=== PATIENT | male | born 1940 | race Caucasian/White ===

== ENCOUNTER → 2018-02-20 06:59 | Outpatient (CLI) | payer MEDICARE, OTHER, SELFPAY ==
[2018-02-20 07:40] LABS: Alanine Aminotransferase 55 IU/L (21-72); Albumin 4.4 g/dL (3.5-5.0); Albumin Globulin Ratio 1.6 (1.0-2.8); Alkaline Phosphatase 50 U/L (38-126); Aspartate Aminotransferase 47 IU/L (17-59); BUN Creatinine Ratio 15.3 (6-22); Bilirubin Total 0.5 mg/dL (0.2-1.3); Blood Urea Nitrogen 23 mg/dL (9-20); Calcium 8.9 mg/dL (8.4-10.2); Carbon Dioxide 25 mmol/L (22-32); Chloride 107 mmol/L (98-107); Estimated Glomerular Filt Rate 45.4 mL/min (>60); Globulin 2.7 g/dL (1.7-4.1); Glucose 103 mg/dL (80-110); HEMOLYSIS < 15 (0-50); Potassium 4.3 mmol/L (3.4-5.1); Sodium 144 mmol/L (137-145); Total Protein 7.1 g/dL (6.3-8.2)
[2018-02-20 09:35] LABS: Thyroid Stimulating Hormone 0.13 uIU/mL (0.47-4.68)
== END ==
PROVIDERS: PCP Internal Medicine; Visit Provider Internal Medicine
DX: I10 Essential (primary) hypertension (principal); N18.9 Chronic kidney disease, unspecified
CPT/HCPCS: 36415; 80053; 84443

== ENCOUNTER → 2018-10-02 10:54 | Outpatient (CLI) | payer MEDICARE, OTHER, SELFPAY ==
[2018-10-02 13:01] LABS: BUN Creatinine Ratio 17.9 (6-22); Blood Urea Nitrogen 25 mg/dL (9-20); Calcium 9.1 mg/dL (8.4-10.2); Carbon Dioxide 24 mmol/L (22-32); Chloride 104 mmol/L (98-107); Estimated Glomerular Filt Rate 49.1 mL/min (>60); Glucose 117 mg/dL (80-110); HEMOLYSIS < 15 (0-50); Potassium 4.5 mmol/L (3.4-5.1); Sodium 140 mmol/L (137-145)
[2018-10-02 13:24] LABS: Thyroid Stimulating Hormone 0.03 uIU/mL (0.47-4.68)
[2018-10-02 13:25] LABS: Prostate Specific Antigen Scrn 4.21 ng/mL (0.1-4.0)
== END ==
PROVIDERS: PCP Internal Medicine; Visit Provider Internal Medicine
DX: Z12.5 Encounter for screening for malignant neoplasm of prostate (principal); E03.9 Hypothyroidism, unspecified; I10 Essential (primary) hypertension; D63.1 Anemia in chronic kidney disease
CPT/HCPCS: 36415; 80048; 84443; G0103

== ENCOUNTER 2018-10-31 18:48 | Emergency (ER) | payer MEDICARE, OTHER, SELFPAY ==
[2018-10-31 19:12] VITALS: BP 109/69; PULSE 73; RESP 18; TEMP 36.7; O2SAT 95; BMI 29.4
--- NOTE | 2018-10-31 19:33 | DI.US.S_ITS ---
PROCEDURE: US PERIPH VENOUS LOW EXTREM LT INDICATIONS: PAIN, SWELLING TECHNIQUE: Real-time imaging, as well as color and pulse Doppler interrogation, were performed of the lower extremity deep veins from the inguinal ligament to the popliteal fossa. COMPARISON: None. FINDINGS: The common femoral, femoral and popliteal veins are normally compressible, and free of intraluminal thrombus. Color and pulse Doppler demonstrate normal phasic intraluminal flow. There is normal augmentation response to distal compression maneuver. IMPRESSION: No DVT found left lower extremity. Dictated by: Ron Nichole M.D. on 10/31/2018 at 20:56 Approved by: Ron Nichole M.D. on 10/31/2018 at 20:56
--- NOTE | 2018-10-31 19:34 | DI.RAD.S_ITS ---
PROCEDURE: XR CHEST 1V INDICATIONS: sob TECHNIQUE: One view of the chest was acquired. COMPARISON: [facility], , CHEST 1 VIEW, 02/22/2017, 13:30. FINDINGS: Surgical changes and devices: None. Lungs and pleura: Lungs are clear. No pleural effusions or pneumothorax. Mediastinum: Mediastinal contours appear normal. Heart size is normal. Bones and chest wall: No suspicious bony lesions. Overlying soft tissues appear unremarkable. IMPRESSION: Reduced inspiratory volume, source of shortness of breath is not seen. Dictated by: Ron Nichole M.D. on 10/31/2018 at 20:33 Approved by: Ron Nichole M.D. on 10/31/2018 at 20:33
--- NOTE | 2018-10-31 19:39 | ED_ITS ---
HPI - Extremity Problem <RUBIN Stinson - Last Filed: 10/31/18 22:08> General Chief complaint: Extremity Problem,Nontraumatic Stated complaint: L LEG SWELLING IN CALF FOR 3 DAYS/SOB Time Seen by Provider: 10/31/18 19:25 Source: patient and family Mode of arrival: ambulatory Limitations: no limitations History of Present Illness HPI Narrative: Of the patient is a 77-year-old male former smoker with history of hypertension who presents with a chief complaint of left lower leg pain and shortness of breath. He denies any recent travel or surgery. He denies any history of blood clots. He states he has been short of breath for several weeks, but notice it got worse when his leg pain started. He states he feels like his left lower leg is swollen and painful. He is worried about a blood clot. He denies any chest pain. Has not taken anything for pain. Denies any dizziness, lightheadedness. States he would like to go home and feels better. Related Data Home Medications Medication Instructions Recorded Confirmed lisinopril [Prinivil] 20 mg PO QDAY #0 11/27/12 rabeprazole [Aciphex] 20 mg PO QDAY #0 11/27/12 simvastatin [Zocor] 40 mg PO HS #0 11/27/12 levothyroxine 100 mcg PO QAM #0 11/30/12 tamsulosin [Flomax] 0.4 mg PO QDAY #0 02/05/17 Previous Rx's Medication Instructions Recorded aspirin 81 mg PO BID #90 02/21/17 oxycodone 5 mg PO Q4HP PRN #30 tab 02/24/17 Allergies Allergy/AdvReac Type Severity Reaction Status Date / Time No Known Drug Allergies Allergy Verified 10/31/18 19:17 Review of Systems <RUBIN Stinson - Last Filed: 10/31/18 22:08> Review of Systems GENERAL: Denies chills, fatigue, malaise, fever, sweats. HEENT: Denies sinus pain, ear pain, sore throat, difficulty swallowing, dizziness. RESPIRATORY: See HPI CARDIOVASCULAR: Denies chest pain, palpitations, orthopnea, edema, GASTROINTESTINAL: Denies nausea, vomiting, abdominal pain, diarrhea, constipation, melena. : Denies dysuria, frequency, incontinence, hematuria, urinary retention. MUSCULOSKELETAL: See HPI SKIN: Denies rash, skin lesions, or other NEUROLOGIC: Denies weakness, headache, numbness, change in speech, confusion, seizures, incoordination. PSYCHIATRIC: No concerning psychosocial issues. 12 point review of systems is negative except for those stated above PFSH <Carole STEPHANE Villarreal- - Last Filed: 10/31/18 22:08> Social History Smoking Status: Former smoker Social History Smoking Status: Former smoker Exam <Carole STEPHANE Villarreal- - Last Filed: 10/31/18 22:08> Narrative Exam Narrative: GENERAL: Elderly male in no acute distress. Requesting to leave. HEAD: Atraumatic. Normocephalic. No temporal or scalp tenderness. EYES: Left eye closed per patient's usual. Extraocular motions intact. No scleral icterus. No injection or drainage. ENT: Nose without bleeding, purulent drainage or septal hematoma. Throat without erythema, tonsillar hypertrophy or exudate. Uvula midline. Airway patent. NECK: Trachea midline. No JVD or lymphadenopathy. Supple, nontender, no meningeal signs. CARDIOVASCULAR: Regular rate and rhythm without murmurs, gallops, or rubs. RESPIRATORY: Clear to auscultation. Breath sounds equal bilaterally. No wheezes, rales, or rhonchi. No cough. No increased respiratory effort. No accessory muscle use. No stridor. GASTROINTESTINAL: Abdomen soft, non-tender, nondistended. No hepato- splenomegaly, or palpable masses. No guarding. EXTREMITIES: General pain to palpation left calf. Positive Homans sign. Positive pedal pulse left foot. Stable gait. BACK: Nontender without deformity or crepitance. No flank tenderness. NEURO: AOx3. Stable gait. SKIN: No rash or erythema. No erythema abrasion ecchymosis etc noted left calf. Initial Vital Signs Initial Vital Signs: Vital Signs Temperature 98.1 F 10/31/18 19:12 Pulse Rate 73 10/31/18 19:12 Respiratory Rate 18 10/31/18 19:12 Blood Pressure 109/69 10/31/18 19:12 Pulse Oximetry 95 10/31/18 19:12 <Tamir Ambriz DO - Last Filed: 11/01/18 02:40> Initial Vital Signs Initial Vital Signs: Vital Signs Temperature 98.1 F 10/31/18 19:12 Pulse Rate 73 10/31/18 19:12 Respiratory Rate 18 10/31/18 19:12 Blood Pressure 109/69 10/31/18 19:12 Pulse Oximetry 95 10/31/18 19:12 Scores <RUBIN Stinson - Last Filed: 10/31/18 22:08> Wells' Criteria for PE Clinical signs and symptoms of PE: No PE is #1 Dx or equally likely: No Heart rate > 100: No Immobilization at least 3 days or surg in previous 4 weeks: No History of PE or DVT: No Hemoptysis: No Malignancy w/Treatment within 6 months or palliative: No Wells' PE Score total: 0 Artemio' Criteria for DVT Active Cancer (Treatment within 6 months): No Bedridden recently >3 days or major surgery within 4 weeks: No Calf Swelling >3cm compared to other leg: No Collateral (nonvericose) superficial veins present: No Entire leg swollen: No Localized tenderness along the deep vein system: No Pitting edema, confined to symtomatic leg: No Paralysis, paresis, or recent plaster immobilization of ext: No Previously documented DVT: No Alternative dx to DVT as likely or more likely: No Artemio' criteria for DVT: 0 Course <RUBIN Stinson - Last Filed: 10/31/18 22:08> Orders Ordered: ED Orders 10/31/18 19:33 US periph venous low extrem lt Stat 10/31/18 19:34 XR chest 1V Stat EKG-12 Lead Stat 10/31/18 19:35 B Type Natriuretic Peptide Stat Complete Blood Count AUTO DIFF Stat Comprehensive Metabolic Panel Stat D Dimer Stat Prothrombin Time INR Stat Troponin & CK Cardiac Panel Stat Vital Signs - 8 hr 10/31/18 19:12 10/31/18 21:00 10/31/18 21:45 Temperature 98.1 F Pulse Rate 73 70 70 Respiratory Rate 18 19 18 Blood Pressure 109/69 117/57 L Blood Pressure [Left Wrist] 107/56 L Pulse Oximetry 95 94 96 <Tamir Ambriz DO - Last Filed: 11/01/18 02:40> Orders Ordered: ED Orders 10/31/18 19:33 US periph venous low extrem lt Stat 10/31/18 19:34 XR chest 1V Stat EKG-12 Lead Stat 10/31/18 19:35 B Type Natriuretic Peptide Stat Complete Blood Count AUTO DIFF Stat Comprehensive Metabolic Panel Stat D Dimer Stat Prothrombin Time INR Stat Troponin & CK Cardiac Panel Stat Vital Signs - 8 hr 10/31/18 19:12 10/31/18 21:00 10/31/18 21:45 Temperature 98.1 F Pulse Rate 73 70 70 Respiratory Rate 18 19 18 Blood Pressure 109/69 117/57 L Blood Pressure [Left Wrist] 107/56 L Pulse Oximetry 95 94 96 MDM - Extremity (Nontraumatic) <Carole Phil, P[employer]ER [employer]ESS OPERATOR-BC - Last Filed: 10/31/18 22:08> Lab Data Result diagrams: 10/31/18 19:35 10/31/18 19:35 Lab Results 10/31/18 10/31/18 10/31/18 Range/Units 19:35 19:35 19:35 WBC 5.7 (4.5-11.0) X10^3/uL RBC 4.62 (4.5-5.9) X10^6/uL Hgb 13.1 L (13.5-17.5) g/dL Hct 39.5 L (41-53) % MCV 85.5 (80-100) fL MCH 28.4 (26-34) PG MCHC 33.3 (30-36) % RDW 13.8 (11.6-14.8) % Plt Count 274 (150-400) X10^3/uL Neut % (Auto) 54.9 (50-75) % Lymph % (Auto) 28.9 (25-40) % [place] % (Auto) 10.2 (3-14) % Eos % (Auto) 5.1 H (2-4) % Baso % (Auto) 0.9 (0-2) % Neut # (Auto) 3100 (6714-6573) /uL Lymph # (Auto) 1700 (4860-4125) /uL [place] # (Auto) 600 (0-900) /uL Eos # (Auto) 300 (0-450) /uL Baso # (Auto) 100 (0-100) /uL PT 12.1 (10.1-12.7) SECONDS INR 1.1 (0.9-1.3) D-Dimer (<230) ng/mL Sodium 144 (137-145) mmol/L Potassium 3.7 (3.4-5.1) mmol/L Chloride 110 H (98-107) mmol/L Carbon Dioxide 23 (22-32) mmol/L BUN 21 H (9-20) mg/dL Creatinine 1.50 H (0.66-1.25) mg/dL Estimated GFR 45.4 L (>60) mL/min BUN/Creatinine Ratio 14.0 (6-22) Glucose 102 (80-110) mg/dL Calcium 8.3 L (8.4-10.2) mg/dL Total Bilirubin 0.3 (0.2-1.3) mg/dL AST 37 (17-59) IU/L ALT 29 (21-72) IU/L Alkaline Phosphatase 59 (38-126) U/L Total Creatine Kinase 382 H (55-170) U/L CK-MB (CK-2) 4.80 H (<2.37) ng/mL CK-MB (CK-2) Rel Index 1.3 L (1.5-5.0) % Troponin I < 0.012 (0.01-0.034) ng/mL B-Natriuretic Peptide < 100 (<100) Total Protein 7.2 (6.3-8.2) g/dL Albumin 4.2 (3.5-5.0) g/dL Globulin 3.0 (1.7-4.1) g/dL Albumin/Globulin Ratio 1.4 (1.0-2.8) 10/31/18 Range/Units 19:35 WBC (4.5-11.0) X10^3/uL RBC (4.5-5.9) X10^6/uL Hgb (13.5-17.5) g/dL Hct (41-53) % MCV (80-100) fL MCH (26-34) PG MCHC (30-36) % RDW (11.6-14.8) % Plt Count (150-400) X10^3/uL Neut % (Auto) (50-75) % Lymph % (Auto) (25-40) % [place] % (Auto) (3-14) % Eos % (Auto) (2-4) % Baso % (Auto) (0-2) % Neut # (Auto) (7456-0574) /uL Lymph # (Auto) (9807-3284) /uL [place] # (Auto) (0-900) /uL Eos # (Auto) (0-450) /uL Baso # (Auto) (0-100) /uL PT (10.1-12.7) SECONDS INR (0.9-1.3) D-Dimer 628 H (<230) ng/mL Sodium (137-145) mmol/L Potassium (3.4-5.1) mmol/L Chloride (98-107) mmol/L Carbon Dioxide (22-32) mmol/L BUN (9-20) mg/dL Creatinine (0.66-1.25) mg/dL Estimated GFR (>60) mL/min BUN/Creatinine Ratio (6-22) Glucose (80-110) mg/dL Calcium (8.4-10.2) mg/dL Total Bilirubin (0.2-1.3) mg/dL AST (17-59) IU/L ALT (21-72) IU/L Alkaline Phosphatase (38-126) U/L Total Creatine Kinase (55-170) U/L CK-MB (CK-2) (<2.37) ng/mL CK-MB (CK-2) Rel Index (1.5-5.0) % Troponin I (0.01-0.034) ng/mL B-Natriuretic Peptide (<100) Total Protein (6.3-8.2) g/dL Albumin (3.5-5.0) g/dL Globulin (1.7-4.1) g/dL Albumin/Globulin Ratio (1.0-2.8) Imaging Data Chest x-ray: Radiologist's impression: [address] [id number] XRay Report Signed Patient: Mitch Villanueva WMR#: [id number] : 1Acct:[id number] Age/Sex: 77 / MDate of Service: 10/31/18 Loc: ED Accession Number: [id number] Procedure: XR chest 1V Ordering Provider: Carole Villarreal- PROCEDURE: XR CHEST 1V INDICATIONS: sob TECHNIQUE: One view of the chest was acquired. COMPARISON: [facility], [place], CHEST 1 VIEW, 02/22/2017, 13:30. FINDINGS: Surgical changes and devices: None. Lungs and pleura: Lungs are clear. No pleural effusions or pneumothorax. Mediastinum: Mediastinal contours appear normal. Heart size is normal. Bones and chest wall: No suspicious bony lesions. Overlying soft tissues appear unremarkable. IMPRESSION: Reduced inspiratory volume, source of shortness of breath is not seen. Dictated by: Ron Nichole M.D. on 10/31/2018 at 20:33 Approved by: Ron Nichole M.D. on 10/31/2018 at 20:33 Venous US: Radiologist's impression: [address] [address] XRay Report Signed Patient: Mitch Villanueva WMR#: [id number] : 1940cct:[id number] Age/Sex: 77 / MDate of Service: 10/31/18 Loc: ED Accession Number: [id number] Procedure: XR chest 1V Ordering Provider: Carole Villarreal-JEVON PROCEDURE: XR CHEST 1V INDICATIONS: sob TECHNIQUE: One view of the chest was acquired. COMPARISON: [facility], , CHEST 1 VIEW, 02/22/2017, 13:30. FINDINGS: Surgical changes and devices: None. Lungs and pleura: Lungs are clear. No pleural effusions or pneumothorax. Mediastinum: Mediastinal contours appear normal. Heart size is normal. Bones and chest wall: No suspicious bony lesions. Overlying soft tissues appear unremarkable. IMPRESSION: Reduced inspiratory volume, source of shortness of breath is not seen. Dictated by: Ron Nichole M.D. on 10/31/2018 at 20:33 Approved by: Ron Nichole M.D. on 10/31/2018 at 20:33 ECG Data Attestation EKG: I personally reviewed and interpreted this ECG as follows: Interpretation: Sinus rhythm. Ventricular rate 74. No ST elevation or depression. No ectopy noted. MDM Narrative Medical decision making narrative: The patient is a 77-year-old male who presents with several weeks of shortness of breath as well as left lower leg pain for 3 days. He had a negative ultrasound of his left leg. His D-dimer was in the 600s, though given that he is 77 years old this is normal for him given his age correction. He had a negative chest x-ray. We did discuss potentially doing a CTPA for PE, but the patient does not want to do that at this point time, as he states shortness of breath is not that bad and he knows he does not have a clot his lung. I did encourage the patient to follow up with primary care provider. Discussed at length coming back to emergency department for any acute concerns such as chest pain, severe shortness of breath etc. The patient also had a negative troponin as well as negative BNP. I did speak with the patient, his and his son who is a turbo generator oiler loss state accordance with the plan of care and request no further imaging at this point time. They state understanding of return precautions as stated understanding of following up with his primary care provider. No questions or concerns upon discharge. <Tamir Ambriz DO - Last Filed: 11/01/18 02:40> Lab Data Lab Results 10/31/18 10/31/18 10/31/18 Range/Units 19:35 19:35 19:35 WBC 5.7 (4.5-11.0) X10^3/uL RBC 4.62 (4.5-5.9) X10^6/uL Hgb 13.1 L (13.5-17.5) g/dL Hct 39.5 L (41-53) % MCV 85.5 (80-100) fL MCH 28.4 (26-34) PG MCHC 33.3 (30-36) % RDW 13.8 (11.6-14.8) % Plt Count 274 (150-400) X10^3/uL Neut % (Auto) 54.9 (50-75) % Lymph % (Auto) 28.9 (25-40) % [place] % (Auto) 10.2 (3-14) % Eos % (Auto) 5.1 H (2-4) % Baso % (Auto) 0.9 (0-2) % Neut # (Auto) 3100 (3203-7207) /uL Lymph # (Auto) 1700 (0927-3239) /uL [place] # (Auto) 600 (0-900) /uL Eos # (Auto) 300 (0-450) /uL Baso # (Auto) 100 (0-100) /uL PT 12.1 (10.1-12.7) SECONDS INR 1.1 (0.9-1.3) D-Dimer (<230) ng/mL Sodium 144 (137-145) mmol/L Potassium 3.7 (3.4-5.1) mmol/L Chloride 110 H (98-107) mmol/L Carbon Dioxide 23 (22-32) mmol/L BUN 21 H (9-20) mg/dL Creatinine 1.50 H (0.66-1.25) mg/dL Estimated GFR 45.4 L (>60) mL/min BUN/Creatinine Ratio 14.0 (6-22) Glucose 102 (80-110) mg/dL Calcium 8.3 L (8.4-10.2) mg/dL Total Bilirubin 0.3 (0.2-1.3) mg/dL AST 37 (17-59) IU/L ALT 29 (21-72) IU/L Alkaline Phosphatase 59 (38-126) U/L Total Creatine Kinase 382 H (55-170) U/L CK-MB (CK-2) 4.80 H (<2.37) ng/mL CK-MB (CK-2) Rel Index 1.3 L (1.5-5.0) % Troponin I < 0.012 (0.01-0.034) ng/mL B-Natriuretic Peptide < 100 (<100) Total Protein 7.2 (6.3-8.2) g/dL Albumin 4.2 (3.5-5.0) g/dL Globulin 3.0 (1.7-4.1) g/dL Albumin/Globulin Ratio 1.4 (1.0-2.8) 10/31/18 Range/Units 19:35 WBC (4.5-11.0) X10^3/uL RBC (4.5-5.9) X10^6/uL Hgb (13.5-17.5) g/dL Hct (41-53) % MCV (80-100) fL MCH (26-34) PG MCHC (30-36) % RDW (11.6-14.8) % Plt Count (150-400) X10^3/uL Neut % (Auto) (50-75) % Lymph % (Auto) (25-40) % [place] % (Auto) (3-14) % Eos % (Auto) (2-4) % Baso % (Auto) (0-2) % Neut # (Auto) (0776-6918) /uL Lymph # (Auto) (6843-4347) /uL [place] # (Auto) (0-900) /uL Eos # (Auto) (0-450) /uL Baso # (Auto) (0-100) /uL PT (10.1-12.7) SECONDS INR (0.9-1.3) D-Dimer 628 H (<230) ng/mL Sodium (137-145) mmol/L Potassium (3.4-5.1) mmol/L Chloride (98-107) mmol/L Carbon Dioxide (22-32) mmol/L BUN (9-20) mg/dL Creatinine (0.66-1.25) mg/dL Estimated GFR (>60) mL/min BUN/Creatinine Ratio (6-22) Glucose (80-110) mg/dL Calcium (8.4-10.2) mg/dL Total Bilirubin (0.2-1.3) mg/dL AST (17-59) IU/L ALT (21-72) IU/L Alkaline Phosphatase (38-126) U/L Total Creatine Kinase (55-170) U/L CK-MB (CK-2) (<2.37) ng/mL CK-MB (CK-2) Rel Index (1.5-5.0) % Troponin I (0.01-0.034) ng/mL B-Natriuretic Peptide (<100) Total Protein (6.3-8.2) g/dL Albumin (3.5-5.0) g/dL Globulin (1.7-4.1) g/dL Albumin/Globulin Ratio (1.0-2.8) Discharge Plan Departure Patient Disposition: Home Clinical Impression: Breath shortness Acute leg pain Qualifiers: Laterality: left Qualified Code(s): M79.605 - Pain in left leg Discharge Date/Time: 10/31/18 21:47 Interventions: ED Discharge Assessment Last Done: 10/31/18 21:45 Activity Restrictions/Additional Instructions: Your ultrasound of her leg shows no clot today. As we discussed the blood test for a clot is negative when it is corrected for your age. We elected to not scan your lungs for a blood clot given that your D-dimer is normal for somebody of your age combined with your reduced kidney function. Please follow up with her primary care provider. Please come back to the emergency department for any acute concerns such as chest pain, severe shortness of breath etc Prescriptions: No Action rabeprazole [Aciphex] 20 MG tablet,delayed release (DR/EC) 20 mg PO QDAY Qty: 0 RF: 0 lisinopril [Prinivil] 20 MG tablet 20 mg PO QDAY Qty: 0 RF: 0 simvastatin [Zocor] 40 MG tablet 40 mg PO HS Qty: 0 RF: 0 levothyroxine 100 MCG tablet 100 mcg PO QAM Qty: 0 RF: 0 tamsulosin [Flomax] 0.4 MG capsule,extended release 24hr 0.4 mg PO QDAY Qty: 0 RF: 0 aspirin 81 MG tablet,delayed release (DR/EC) 81 mg PO BID Qty: 90 RF: 0 oxycodone 5 MG tablet 5 mg PO Q4HP PRNQty: 30 RF: 0 Referrals: Mathew Blevins MD [Primary Care Provider] - <Tamir Ambriz DO - Last Filed: 11/01/18 02:40> [facility] ED Attending Deniaature Attestation: I was immediately available in the department for consultation. Documentation has been reviewed. I agree with assessment and plan.
[2018-10-31 19:50] LABS: Add Manual Diff / Slide Review NO; Basophils Absolute Auto 100 /uL (0-100); Basophils Percent Auto 0.9 % (0-2); Eosinophils Absolute Auto 300 /uL (0-450); Eosinophils Percent Auto 5.1 % (2-4); Hematocrit 39.5 % (41-53); Hemoglobin 13.1 g/dL (13.5-17.5); Lymphocytes Absolute Auto 1700 /uL (1100-4500); Lymphocytes Percent Auto 28.9 % (25-40); Mean Corpuscular HGB Conc 33.3 % (30-36); Mean Corpuscular Hemoglobin 28.4 PG (26-34); Mean Corpuscular Volume 85.5 fL (80-100); Monocytes Absolute Auto 600 /uL (0-900); Monocytes Percent Auto 10.2 % (3-14); Neutrophils Absolute Auto 3100 /uL (1500-7000); Neutrophils Percent Auto 54.9 % (50-75); Platelet Count 274 X10^3/uL (150-400); Red Blood Cell Count 4.62 X10^6/uL (4.5-5.9); Red Cell Distribution Width 13.8 % (11.6-14.8); White Blood Cell Count 5.7 X10^3/uL (4.5-11.0)
[2018-10-31 19:59] LABS: Alanine Aminotransferase 29 IU/L (21-72); Albumin 4.2 g/dL (3.5-5.0); Albumin Globulin Ratio 1.4 (1.0-2.8); Alkaline Phosphatase 59 U/L (38-126); Aspartate Aminotransferase 37 IU/L (17-59); Bilirubin Total 0.3 mg/dL (0.2-1.3); Blood Urea Nitrogen 21 mg/dL (9-20); Calcium 8.3 mg/dL (8.4-10.2); Carbon Dioxide 23 mmol/L (22-32); Chloride 110 mmol/L (98-107); Creatine Kinase 382 U/L (55-170); Estimated Glomerular Filt Rate 45.4 mL/min (>60); Glucose 102 mg/dL (80-110); HEMOLYSIS < 15 (0-50); Potassium 3.7 mmol/L (3.4-5.1); Sodium 144 mmol/L (137-145); Total Protein 7.2 g/dL (6.3-8.2)
[2018-10-31 20:05] LABS: INR 1.1 (0.9-1.3); Prothrombin Time 12.1 SECONDS (10.1-12.7)
[2018-10-31 20:11] LABS: Troponin I < 0.012 ng/mL (0.01-0.034)
[2018-10-31 20:14] LABS: CKMB % Relative Index 1.3 % (1.5-5.0)
[2018-10-31 20:24] LABS: D Dimer 628 ng/mL (<230)
[2018-10-31 20:27] LABS: B Type Natriuretic Peptide < 100 (<100)
[2018-10-31 21:00] VITALS: BP 107/56; PULSE 70; RESP 19; O2SAT 94
[2018-10-31 21:45] VITALS: BP 117/57; PULSE 70; RESP 18; O2SAT 96
== END 2018-10-31 21:47 | disposition home or self-care (01) ==
PROVIDERS: Emergency Provider Nurse Practitioner Family; PCP Internal Medicine
DX: R06.02 Shortness of breath (principal); M79.605 Pain in left leg
CPT/HCPCS: 36591; 71045; 80053; 82550; 82553; 83880; 84484; 85025; 85379; 85610; 93005; 93971; 99282; 99285

== ENCOUNTER → 2019-04-02 06:59 | Outpatient (CLI) | payer MEDICARE, OTHER, SELFPAY ==
[2019-04-02 08:19] LABS: BUN Creatinine Ratio 21.3 (6-22); Blood Urea Nitrogen 32 mg/dL (9-20); Calcium 9.2 mg/dL (8.4-10.2); Carbon Dioxide 26 mmol/L (22-32); Chloride 105 mmol/L (98-107); Estimated Glomerular Filt Rate 45.3 mL/min (>60); Glucose 95 mg/dL (80-110); HEMOLYSIS < 15 (0-50); Potassium 4.3 mmol/L (3.4-5.1); Sodium 142 mmol/L (137-145); Uric Acid 8.5 mg/dL (3.5-8.5)
[2019-04-02 08:49] LABS: Prostate Specific Antigen 3.53 ng/mL (0.10-4.00)
[2019-04-02 08:50] LABS: TSH w/ Reflex to FT4 0.13 uIU/mL (0.47-4.68)
[2019-04-02 09:22] LABS: Free T4, Direct Thyroxine 1.22 ng/dL (0.78-2.19)
== END ==
PROVIDERS: PCP Internal Medicine; Visit Provider Internal Medicine
DX: M1A.00X0 Idiopathic chronic gout, unspecified site, without tophus (tophi) (principal); E03.9 Hypothyroidism, unspecified; N18.9 Chronic kidney disease, unspecified; R97.20 Elevated prostate specific antigen [PSA]
CPT/HCPCS: 36415; 80048; 84153; 84439; 84443; 84550

== ENCOUNTER → 2019-10-13 06:56 | Outpatient (CLI) | payer MEDICARE, OTHER, SELFPAY ==
[2019-10-13 08:27] LABS: BUN Creatinine Ratio 13.3 (6-22); Blood Urea Nitrogen 19 mg/dL (9-20); Calcium 8.8 mg/dL (8.4-10.2); Carbon Dioxide 25 mmol/L (22-32); Chloride 105 mmol/L (98-107); Estimated Glomerular Filt Rate 47.8 mL/min (>60); Glucose 100 mg/dL (80-110); HEMOLYSIS < 15 (0-50); Sodium 141 mmol/L (137-145); Uric Acid 8.2 mg/dL (3.5-8.5)
[2019-10-13 08:56] LABS: Prostate Specific Antigen 4.02 ng/mL (0.10-4.00)
[2019-10-13 09:22] LABS: Free T4, Direct Thyroxine 1.46 ng/dL (0.78-2.19)
== END ==
PROVIDERS: PCP Internal Medicine; Referring Provider Internal Medicine; Visit Provider Internal Medicine
DX: M1A.00X0 Idiopathic chronic gout, unspecified site, without tophus (tophi) (principal); E03.9 Hypothyroidism, unspecified; N18.9 Chronic kidney disease, unspecified; R97.20 Elevated prostate specific antigen [PSA]
CPT/HCPCS: 36415; 80048; 84153; 84439; 84443; 84550

== ENCOUNTER → 2020-04-05 13:35 | Outpatient (CLI) | payer MEDICARE, OTHER, SELFPAY ==
[2020-04-05 14:20] LABS: Add Manual Diff / Slide Review NO; Basophils Absolute Auto 0 /uL (0-100); Basophils Percent Auto 0.7 % (0-2); Eosinophils Absolute Auto 200 /uL (0-450); Eosinophils Percent Auto 4.2 % (2-4); Hematocrit 40.3 % (41-53); Hemoglobin 13.1 g/dL (13.5-17.5); Lymphocytes Absolute Auto 1400 /uL (1100-4500); Lymphocytes Percent Auto 24.8 % (25-40); Mean Corpuscular HGB Conc 32.5 % (30-36); Mean Corpuscular Hemoglobin 27.8 PG (26-34); Mean Corpuscular Volume 85.5 fL (80-100); Monocytes Absolute Auto 400 /uL (0-900); Monocytes Percent Auto 7.4 % (3-14); Neutrophils Absolute Auto 3500 /uL (1500-7000); Neutrophils Percent Auto 62.9 % (50-75); Platelet Count 280 X10^3/uL (150-400); Red Blood Cell Count 4.71 X10^6/uL (4.5-5.9); Red Cell Distribution Width 13.9 % (11.6-14.8); White Blood Cell Count 5.6 X10^3/uL (4.5-11.0)
[2020-04-05 14:50] LABS: Alanine Aminotransferase 24 IU/L (<50); Albumin 4.2 g/dL (3.5-5.0); Albumin Globulin Ratio 1.6 (1.0-2.8); Alkaline Phosphatase 47 U/L (38-126); Aspartate Aminotransferase 29 IU/L (17-59); Bilirubin Total 0.4 mg/dL (0.2-1.3); Blood Urea Nitrogen 31 mg/dL (9-20); Calcium 8.8 mg/dL (8.4-10.2); Carbon Dioxide 23 mmol/L (22-32); Chloride 109 mmol/L (98-107); Cholesterol 110 mg/dL (140-199); Estimated Glomerular Filt Rate 38.5 mL/min (>60); Globulin 2.6 g/dL (1.7-4.1); Glucose 90 mg/dL (80-110); HDL Cholesterol 30 mg/dL (40-60); HEMOLYSIS < 15 (0-50); LDL Cholesterol Calculated 52 mg/dL (<100); Potassium 3.8 mmol/L (3.4-5.1); Sodium 141 mmol/L (137-145); Total Protein 6.8 g/dL (6.3-8.2); Triglycerides 139 mg/dL (35-150)
[2020-04-05 15:17] LABS: TSH w/ Reflex to FT4 0.02 uIU/mL (0.47-4.68)
[2020-04-05 15:19] LABS: Prostate Specific Antigen 3.54 ng/mL (0.10-4.00)
== END ==
PROVIDERS: PCP Internal Medicine; Referring Provider Internal Medicine; Visit Provider Internal Medicine
DX: M15.0 Primary generalized (osteo)arthritis (principal); E78.00 Pure hypercholesterolemia, unspecified; R97.20 Elevated prostate specific antigen [PSA]
CPT/HCPCS: 36415; 80053; 80061; 84153; 84439; 84443; 85025

== ENCOUNTER → 2020-07-27 14:55 | Outpatient (ROUT) | payer MEDICARE, OTHER, SELFPAY ==
[2020-07-27 15:26] LABS: Add Manual Diff / Slide Review NO; Basophils Absolute Auto 0 /uL (0-100); Eosinophils Absolute Auto 200 /uL (0-450); Eosinophils Percent Auto 4.5 % (2-4); Hemoglobin 12.7 g/dL (13.5-17.5); Lymphocytes Absolute Auto 1200 /uL (1100-4500); Lymphocytes Percent Auto 25.8 % (25-40); Mean Corpuscular HGB Conc 33.4 % (30-36); Mean Corpuscular Hemoglobin 28.7 PG (26-34); Mean Corpuscular Volume 85.9 fL (80-100); Monocytes Absolute Auto 400 /uL (0-900); Monocytes Percent Auto 8.3 % (3-14); Neutrophils Absolute Auto 2900 /uL (1500-7000); Neutrophils Percent Auto 60.4 % (50-75); Platelet Count 316 X10^3/uL (150-400); Red Blood Cell Count 4.43 X10^6/uL (4.5-5.9); Red Cell Distribution Width 13.1 % (11.6-14.8); White Blood Cell Count 4.8 X10^3/uL (4.5-11.0)
[2020-07-27 15:52] LABS: BUN Creatinine Ratio 18.2 (6-22); Blood Urea Nitrogen 27 mg/dL (9-20); Calcium 7.6 mg/dL (8.4-10.2); Carbon Dioxide 24 mmol/L (22-32); Chloride 105 mmol/L (98-107); Estimated Glomerular Filt Rate 45.8 mL/min (>60); Glucose 100 mg/dL (80-110); HEMOLYSIS < 15 (0-50); Potassium 3.9 mmol/L (3.4-5.1); Sodium 139 mmol/L (137-145); Uric Acid 8.4 mg/dL (3.5-8.5)
== END ==
PROVIDERS: PCP Internal Medicine; Visit Provider Internal Medicine
DX: M1A.00X0 Idiopathic chronic gout, unspecified site, without tophus (tophi) (principal); N18.30 Chronic kidney disease, stage 3 unspecified
CPT/HCPCS: 80048; 84550; 85025

== ENCOUNTER → 2020-10-02 08:50 | Outpatient (CLI) | payer MEDICARE, OTHER, SELFPAY ==
[2020-10-02 09:23] LABS: Add Manual Diff / Slide Review NO; Basophils Absolute Auto 0 /uL (0-100); Basophils Percent Auto 0.9 % (0-2); Eosinophils Absolute Auto 300 /uL (0-450); Eosinophils Percent Auto 6.4 % (2-4); Hematocrit 39.4 % (41-53); Hemoglobin 13.5 g/dL (13.5-17.5); Lymphocytes Absolute Auto 1500 /uL (1100-4500); Lymphocytes Percent Auto 31.4 % (25-40); Mean Corpuscular HGB Conc 34.1 % (30-36); Mean Corpuscular Hemoglobin 29.5 PG (26-34); Mean Corpuscular Volume 86.3 fL (80-100); Monocytes Absolute Auto 400 /uL (0-900); Monocytes Percent Auto 8.4 % (3-14); Neutrophils Absolute Auto 2600 /uL (1500-7000); Neutrophils Percent Auto 52.9 % (50-75); Platelet Count 257 X10^3/uL (150-400); Red Blood Cell Count 4.57 X10^6/uL (4.5-5.9); Red Cell Distribution Width 13.8 % (11.6-14.8); White Blood Cell Count 4.9 X10^3/uL (4.5-11.0)
[2020-10-02 10:22] LABS: BUN Creatinine Ratio 17.7 (6-22); Blood Urea Nitrogen 26 mg/dL (9-20); Calcium 9.3 mg/dL (8.4-10.2); Carbon Dioxide 27 mmol/L (22-32); Chloride 105 mmol/L (98-107); Estimated Glomerular Filt Rate 46.2 mL/min (>60); Glucose 102 mg/dL (80-110); HEMOLYSIS < 15 (0-50); Potassium 4.3 mmol/L (3.4-5.1); Sodium 140 mmol/L (137-145)
== END ==
PROVIDERS: PCP Internal Medicine; Referring Provider Internal Medicine; Visit Provider Internal Medicine
DX: Z00.00 Encounter for general adult medical examination without abnormal findings (principal); E03.9 Hypothyroidism, unspecified; D63.1 Anemia in chronic kidney disease; N18.9 Chronic kidney disease, unspecified; R97.20 Elevated prostate specific antigen [PSA]
CPT/HCPCS: 36415; 80048; 84153; 85025; G0103

== ENCOUNTER → 2021-06-28 08:59 | Outpatient (CLI) | payer MEDICARE, OTHER, SELFPAY ==
--- NOTE | 2021-06-28 09:03 | DI.US.S_ITS ---
PROCEDURE: US RENAL COMPLETE INDICATIONS: CHRONIC STAGE 3 KIDNEY DISEASE TECHNIQUE: Real-time scanning was performed of the kidneys and bladder, with image documentation. COMPARISON: [facility], US, ABDOMEN COMPLETE, 11/25/2012, 2:44. [facility], CT, ABDOMEN/PELVIS WITH CONTRAST, 11/25/2012, 0:22. [facility], US, RENAL COMPLETE, 04/16/2012, 11:17. FINDINGS: Kidneys: Kidneys are normal in size. Right kidney measures 11.9 cm long; left kidney measures 12 cm long. Right renal cortical thickness is 1.3 cm; left renal cortical thickness is 1.3 cm. Moderate generalized increased echogenicity can be seen of the kidneys. No hydronephrosis or nephrolithiasis. No suspicious solid mass lesions. Bladder: Pre-void bladder volume is 134 mL. Post-void residual is 62 mL. Pre-void images demonstrate no intraluminal masses or stones. On pre-void images, only the right ureteral jet can be seen with color Doppler interrogation. (Of note, ureteral jets may not be detectable in up to 25% of cases due to insufficient differences in specific gravity between ureteral and bladder urine). Miscellaneous: No free pelvic fluid. IMPRESSION: Negative for hydronephrosis. Moderate postvoid residual, 62 cc. Mild generalized increase echogenicity seen of the kidneys, which is consistent with the known clinical history. Dictated by: Beto Silva M.D. on 06/28/2021 at 9:28 Approved by: Beto Silva M.D. on 06/28/2021 at 9:30
== END ==
PROVIDERS: PCP Internal Medicine; Referring Provider Internal Medicine; Visit Provider Internal Medicine
DX: N18.31 Chronic kidney disease, stage 3a (principal)
CPT/HCPCS: 76770

== ENCOUNTER → 2021-08-03 11:11 | Outpatient (CLI) | payer MEDICARE, OTHER, SELFPAY ==
--- NOTE | 2021-08-03 11:13 | DI.MRI.S_ITS ---
PROCEDURE: MR PELIS WO/W CON INDICATIONS: Elevated and rising PSA abnormal right prostate TECHNIQUE: Coronal HASTE, axial T1 FSE with fat saturation, 3-plane nonbreath-hold T2 FSE. After the administration of contrast, dynamic axial, delayed axial and coronal VIBE or 2-D FLASH with fat saturation through the pelvis. Optional diffusion weighted imaging and ADC may be performed. COMPARISON: None. FINDINGS: Image quality: Diffusion weighted and dynamic contrast enhanced images are diagnostic. Prostate: Gland size is 5.5 x 4.9 x 4.1 cm; ellipsoid gland volume is 57 mL. A small intrinsic T1 hyperintense focus in the mid transitional zone could represent a small focus of hemorrhage. There are multiple BPH nodules. Lesion size(s): Lesion 1: 1 x 1 cm 09/16. Lesion location(s) (sector): Lesion 1: Right apex transitional zone Lesion description: Lesion 1: Round T2 weighted imaging (T2WI) morphology score: Lesion 1: 3 Diffusion weighted imaging (DWI) morphology score: Lesion 1: 2 Dynamic contrast enhancement (DCE): Lesion 1: Absent Lesion PI-RADS score: Lesion 1: PI-RADS 3 Genitourinary system: Bladder wall thickness is normal. Distal ureters are non distended. Bowel and peritoneum: No pathologic free pelvic fluid. Inferior colon and small bowel loops are normal in caliber. Diverticulosis. Nodes and vessels: No pelvic or inguinal adenopathy by size criteria. Iliac vessels are normal in caliber. Soft tissues: No inguinal hernias. Mild enhancement adjacent to the right greater trochanter could be due to bursitis or tendinitis. Bones: Marrow demonstrates normal overall signal, without lesions to suggest metastases. IMPRESSION: 1. Prostatomegaly. 2. Right apex transitional zone observation measuring 1 cm. PI-RADS 3. This could represent a BPH nodule. 3. No enlarged lymph nodes. Dictated by: Robert Duque M.D. on 08/03/2021 at 13:32 Approved by: Robert Duque M.D. on 08/03/2021 at 13:45
== END ==
PROVIDERS: PCP Internal Medicine; Referring Provider Urology; Visit Provider Urology
DX: N42.9 Disorder of prostate, unspecified (principal); R97.20 Elevated prostate specific antigen [PSA]; N40.0 Benign prostatic hyperplasia without lower urinary tract symptoms
CPT/HCPCS: 72197; A9579

== ENCOUNTER → 2021-11-08 07:15 | Outpatient (CLI) | payer MEDICARE, OTHER, SELFPAY ==
[2021-11-10 05:47] LABS: PSA Free % 15.2 % (.)
== END ==
PROVIDERS: PCP Internal Medicine; Referring Provider Urology; Visit Provider Urology
DX: R97.20 Elevated prostate specific antigen [PSA] (principal)
CPT/HCPCS: 36415; 84153; 84154

== ENCOUNTER → 2021-12-10 06:58 | Outpatient (CLI) | payer MEDICARE, OTHER, SELFPAY ==
[2021-12-10 09:03] LABS: Hematocrit 39.2 % (41-53); Hemoglobin 13.1 g/dL (13.5-17.5)
[2021-12-10 09:12] LABS: Creatinine Urine Random 38.5 mg/dL; Protein (Total) Urine Random 16 mg/dL (0-12); Protein Creatinine Ratio Urine 0.41 GRAM/24H
[2021-12-10 10:08] LABS: BUN Creatinine Ratio 17.1 (6-22); Blood Urea Nitrogen 26 mg/dL (9-20); Calcium 8.8 mg/dL (8.4-10.2); Carbon Dioxide 24 mmol/L (22-32); Chloride 107 mmol/L (98-107); Estimated Glomerular Filt Rate 46 mL/min (>60); Glucose 96 mg/dL (80-110); HEMOLYSIS < 15 (0-50); Potassium 4.6 mmol/L (3.4-5.1); Sodium 140 mmol/L (137-145)
== END ==
PROVIDERS: PCP Internal Medicine; Referring Provider Student in an Organized Health Care Education/Training Program; Visit Provider Student in an Organized Health Care Education/Training Program
DX: N05.9 Unspecified nephritic syndrome with unspecified morphologic changes (principal); D64.9 Anemia, unspecified; R80.9 Proteinuria, unspecified
CPT/HCPCS: 36415; 80048; 82570; 84156; 85014; 85018

== ENCOUNTER → 2022-02-19 12:56 | Outpatient (CLI) | payer MEDICARE, OTHER, SELFPAY ==
[2022-02-20 08:13] LABS: PSA Free % 15.8 % (.)
== END ==
PROVIDERS: Referring Provider Urology; Visit Provider Urology
DX: R97.20 Elevated prostate specific antigen [PSA] (principal); N42.9 Disorder of prostate, unspecified
CPT/HCPCS: 36415; 84153; 84154

== ENCOUNTER → 2022-06-07 07:04 | Outpatient (CLI) | payer MEDICARE, OTHER, SELFPAY ==
[2022-06-07 07:58] LABS: Add Manual Diff / Slide Review NO; Basophils Absolute Auto 0 /uL (0-100); Basophils Percent Auto 0.8 % (0-2); Eosinophils Absolute Auto 300 /uL (0-450); Hematocrit 40.6 % (41-53); Hemoglobin 13.3 g/dL (13.5-17.5); Lymphocytes Absolute Auto 1600 /uL (1100-4500); Lymphocytes Percent Auto 34.6 % (25-40); Mean Corpuscular HGB Conc 32.7 % (30-36); Mean Corpuscular Hemoglobin 27.5 PG (26-34); Monocytes Absolute Auto 400 /uL (0-900); Monocytes Percent Auto 7.9 % (3-14); Neutrophils Absolute Auto 2400 /uL (1500-7000); Neutrophils Percent Auto 50.7 % (50-75); Platelet Count 280 X10^3/uL (150-400); Red Blood Cell Count 4.83 X10^6/uL (4.5-5.9); Red Cell Distribution Width 14.9 % (11.6-14.8); White Blood Cell Count 4.7 X10^3/uL (4.5-11.0)
[2022-06-07 08:49] LABS: Alanine Aminotransferase 21 IU/L (<50); Albumin 4.2 g/dL (3.5-5.0); Albumin Globulin Ratio 1.4 (1.0-2.8); Alkaline Phosphatase 49 U/L (38-126); Aspartate Aminotransferase 28 IU/L (17-59); BUN Creatinine Ratio 14.5 (6-22); Bilirubin Total 0.5 mg/dL (0.2-1.3); Blood Urea Nitrogen 26 mg/dL (9-20); Calcium 8.7 mg/dL (8.4-10.2); Carbon Dioxide 28 mmol/L (22-32); Chloride 103 mmol/L (98-107); Estimated Glomerular Filt Rate 38 mL/min (>60); Globulin 2.9 g/dL (1.7-4.1); Glucose 91 mg/dL (80-110); HEMOLYSIS < 15 (0-50); Potassium 4.6 mmol/L (3.4-5.1); Sodium 144 mmol/L (137-145); Total Protein 7.1 g/dL (6.3-8.2); Uric Acid 8.6 mg/dL (3.5-8.5)
[2022-06-07 09:05] LABS: Free T4, Direct Thyroxine 1.32 ng/dL (0.78-2.19)
[2022-06-07 09:19] LABS: Thyroid Stimulating Hormone 0.307 uIU/mL (0.47-4.68)
[2022-06-07 09:23] LABS: Prostate Specific Antigen 5.53 ng/mL (0.10-4.00)
== END ==
PROVIDERS: PCP Family Medicine; Referring Provider Family Medicine; Visit Provider Family Medicine
DX: E03.9 Hypothyroidism, unspecified (principal); R97.20 Elevated prostate specific antigen [PSA]; I10 Essential (primary) hypertension; M10.9 Gout, unspecified; N18.30 Chronic kidney disease, stage 3 unspecified
CPT/HCPCS: 36415; 80053; 84153; 84439; 84443; 84550; 85025

== ENCOUNTER → 2022-08-20 08:23 | Outpatient (CLI) | payer MEDICARE, OTHER, SELFPAY | PROVIDERS: PCP Internal Medicine; Referring Provider Urology; Visit Provider Urology | DX: N42.9 Disorder of prostate, unspecified (principal); R97.20 Elevated prostate specific antigen [PSA] | CPT/HCPCS: 36415; 84153; 84154 ==

== ENCOUNTER → 2022-09-03 10:57 | Outpatient (CLI) | payer MEDICARE, OTHER, SELFPAY ==
[2022-09-03 13:06] LABS: TSH w/ Reflex to FT4 0.06 uIU/mL (0.47-4.68)
[2022-09-03 13:32] LABS: Free T4, Direct Thyroxine 1.74 ng/dL (0.78-2.19)
[2022-09-05 11:41] LABS: PSA Free % 16.1 % (.); PSA, Total 6.4 ng/mL (0.0-4.0)
== END ==
PROVIDERS: PCP Internal Medicine; Referring Provider Urology; Visit Provider Urology
DX: E03.9 Hypothyroidism, unspecified (principal); R97.20 Elevated prostate specific antigen [PSA]
CPT/HCPCS: 36415; 84153; 84154; 84439; 84443

== ENCOUNTER → 2022-11-08 08:46 | Outpatient (CLI) | payer MEDICARE, OTHER, SELFPAY ==
[2022-11-08 10:17] LABS: TSH w/ Reflex to FT4 1.62 uIU/mL (0.47-4.68)
== END ==
PROVIDERS: PCP Internal Medicine; Referring Provider Internal Medicine; Visit Provider Internal Medicine
DX: E03.9 Hypothyroidism, unspecified (principal)
CPT/HCPCS: 36415; 84443

== ENCOUNTER 2022-11-14 07:42 | Emergency (ER) | payer MEDICARE, OTHER, SELFPAY ==
[2022-11-14] VITALS (7 sets, daily range): BP systolic 157–188; BP diastolic 72–79; PULSE 61–78; RESP 15–23; TEMP 36.5; O2SAT 94–99; BMI 28.7
--- NOTE | 2022-11-14 07:54 | ED_ITS ---
HPI - Dizziness General Chief Complaint: Dizziness Stated Complaint: dizzy/neck hurting T-2 Time Seen by Provider: 11/14/22 07:53 Source: patient Mode of arrival: Wheelchair Limitations: no limitations History of Present Illness HPI Narrative: This is an 82-year-old male with history of hypertension, hypothyroidism, dyslipidemia, CKD stage 3, GERD and gout as well as history of left enucleation. Patient states yesterday he woke up rolled over in bed and noticed spinning sensation yesterday morning when he woke up. He states that was the 1st time that had never happened. He states that lasted about 10 minutes and then stopped. Patient states this morning when he woke up at 5:30 a.m. he once again rolled over in bed had spinning sensation in the room which has been persistent. Patient states no headache but he has had pain from his left shoulder that is radiated up his neck towards his ear been going on intermittently for the past month it is present today. Patient states he was told it was likely a torn rotator cuff. He denies any headache. He denies any vision changes. 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 Patient denies numbness, tingling or weakness. He states he is having some trouble walking because he has pain and gout in his right foot but otherwise isn't having any issues with balance. He denies any nausea or vomiting. No chest pain no shortness of breath, denies any acute vision changes. No issues with speech, no new facial droop. Patient states he is currently taking colchicine which he does not take every day but because he is having a flare of gout in his foot. He is had appendectomy, cholecystectomy and left eye removal. No known drug allergies. No tobacco, occasional alcohol nothing recently, no illicit. Dr. Arrieta is his primary care. He is accompanied by his . Related Data Home Medications Medication Instructions Recorded Confirmed rabeprazole 20 mg tablet,delayed 20 mg PO QDAY ##0 11/27/12 11/11/22 release (AcipHex) colchicine 0.6 mg tablet 0.6 mg PO BID 07/26/21 11/11/22 levothyroxine 100 mcg tablet 100 mcg PO DAILY 11/11/22 11/11/22 Previous Rx's Medication Instructions Recorded lisinopril 20 mg tablet 20 mg PO DAILY #90 tabs 08/01/22 simvastatin 40 mg tablet (Zocor) 40 mg PO HS #90 tabs 10/14/22 meclizine 25 mg chewable tablet 25 mg PO QID #20 tabs 11/14/22 Allergies Allergy/AdvReac Type Severity Reaction Status Date / Time No Known Drug Allergies Allergy Verified 11/14/22 07:52 Review of Systems Review of Systems ROS Unobtainable: All systems reviewed & are unremarkable except as noted in HPI and below Patient History Medical History Abnormal prostate by palpation Acquired hypothyroidism Bladder outlet obstruction BPH w urinary obs/LUTS Elevated PSA Erectile dysfunction Essential hypertension History of arthritis Mixed hyperlipidemia Overweight Stage 3b chronic kidney disease (CKD) Surgical History Hx of appendectomy Hx of cholecystectomy Family History Father Cancer Mother Hyperlipidemia Hypertension Gout 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 HEENT: Atraumatic, pupils are equal round reactive to light, extraocular movements are intact with right eye, has glass left eye, nares are clear, TMs are clear with no fluid, there is no conjunctival pallor. Throat is clear without any exudates, erythema, tonsillar enlargement or uvular deviation, left lid slightly droopy but patient states this is from his glass eye. No other facial droop appreciated. HEART: Regular rate and rhythm without murmur, clicks, rubs. LUNGS:Lungs clear to auscultation, no wheezes, rales, crackles, chest moves symmetrically ABD:bowel sounds normal, soft, non-tender, no guarding, rebound, rigidity, no masses noted, no hepatosplenomegaly MSCL: Non-tender, no muscle atrophy, muscles strength 5/5 upper and lower extremities, full range of motion. NEURO:CN 2-12 intact, sensation normal, finger nose finger test normal, heel saldivar test normal, romberg normal SKIN: No rash, erythema or other skin changes. Initial Vital Signs Initial Vital Signs: Vital Signs Pulse Rate 65 11/14/22 07:48 Respiratory Rate 23 11/14/22 07:48 Pulse Oximetry 97 11/14/22 07:48 Scores NIH Stroke Scale Level of Conciousness: Alert, keenly responsive Ask month/age: Answers both questions correctly. Open/close eyes, close hand: Performs both tasks correctly Best gaze horizontal: Normal Visual vargas: No visual loss (missing left eye.) Facial palsy: Normal symetrical movement Left arm drift: No drift for full 10 sec Right arm drift: No drift for full 10 sec Left leg drift: No drift for full 5 sec Right leg drift: No drift for full 5 sec Limb ataxia: Absent Sensory on face/arms/legs: Normal, no sensory loss Best language: No aphasia, normal Dysarthria: Normal Extinction or inattention: No abnormality Total NIH Stroke scale score: 0 Course Orders Ordered: ED Orders 11/14/22 07:54 EKG-12 Lead Stat 11/14/22 08:11 CT angio head and neck Stat 11/14/22 08:20 Basic Metabolic Panel Stat Complete Blood Count AUTO DIFF Stat Troponin I Stat Discontinued Medications Sodium Chloride (Normal Saline 0.9%) 1,000 mls @ 1,000 mls/hr IV BOLUS ONE Stop: 11/14/22 09:10 Last Infusion: 11/14/22 10:12 Dose: 0 mls/hr Documented By: Admin: 11/14/22 08:22 Dose: 1,000 mls/hr Documented By: BECCA Meclizine HCl (Meclizine Hcl 12.5 Mg Tablet) 50 mg PO NOW ONE Stop: 11/14/22 08:12 Last Admin: 11/14/22 08:20 Dose: 50 mg Documented By: BECCA Vital Signs Vital signs: Vital Signs - 8 hr 11/14/22 07:49 11/14/22 07:48 11/14/22 08:00 Temperature 97.7 F Pulse Rate 70 65 Respiratory Rate 16 23 Blood Pressure 188/79 H 163/74 H Pulse Oximetry 98 97 Oxygen Delivery Method Room Air 11/14/22 08:00 11/14/22 08:30 11/14/22 08:30 Temperature Pulse Rate 67 61 Respiratory Rate 21 15 Blood Pressure 157/72 H Pulse Oximetry 98 96 Oxygen Delivery Method 11/14/22 09:05 11/14/22 10:15 11/14/22 09:30 Temperature Pulse Rate 78 62 Respiratory Rate 18 20 Blood Pressure 161/78 H Pulse Oximetry 94 99 Oxygen Delivery Method MDM - Dizziness Lab Data 11/14/22 08:20 11/14/22 08:20 Labs: Lab Results 11/14/22 11/14/22 Range/Units 08:20 08:20 WBC 5.3 (4.5-11.0) X10^3/uL RBC 4.49 L (4.5-5.9) X10^6/uL Hgb 12.5 L (13.5-17.5) g/dL Hct 36.9 L (41-53) % MCV 82.2 (80-100) fL MCH 27.8 (26-34) PG MCHC 33.9 (30-36) % RDW 14.9 H (11.6-14.8) % Plt Count 295 (150-400) X10^3/uL Neut % (Auto) 56.5 (50-75) % Lymph % (Auto) 27.3 (25-40) % [place] % (Auto) 8.6 (3-14) % Eos % (Auto) 7.0 H (2-4) % Baso % (Auto) 0.6 (0-2) % Neut # (Auto) 3000 (1873-2305) /uL Lymph # (Auto) 1500 (2703-8341) /uL [place] # (Auto) 500 (0-900) /uL Eos # (Auto) 400 (0-450) /uL Baso # (Auto) 0 (0-100) /uL Sodium 140 (137-145) mmol/L Potassium 3.9 (3.4-5.1) mmol/L Chloride 105 (98-107) mmol/L Carbon Dioxide 26 (22-32) mmol/L BUN 18 (9-20) mg/dL Creatinine 1.43 H (0.66-1.25) mg/dL Estimated GFR 49 L (>60) mL/min BUN/Creatinine Ratio 12.6 (6-22) Glucose 105 (80-110) mg/dL Calcium 7.0 L (8.4-10.2) mg/dL Troponin I < 0.012 (0.01-0.034) ng/mL Imaging Data CTA - brain/neck: Radiologist's Impression: Close Head/Neck CTA (Signed) Jm Stover - 11/14/22 Launch?[address] [address] [address] Scan Report Signed Patient: Mitch Villanueva MR#: [id number] : 1940 Acct:[id number] Age/Sex: 82 / M Date of Service: 11/14/22 Loc: ED Accession Number: [id number] ?? Procedure: CT angio head and neck Ordering Provider: Carole Linn D.O. PROCEDURE:? CT ANGIO HEAD AND NECK ? INDICATIONS:? new vertigo, right neck pain started 11/13/22 ? TECHNIQUE:? Pre-contrast 4.5 mm thick sections acquired from the foramen magnum to the vertex.? After the administration of intravenous contrast, 1 mm thick sections acquired from the aortic arch through the [place] of [place].? Post-contrast 4.5 mm thick sections then re- acquired from the foramen magnum to the vertex.? 3-dimensional nrtelng-wwenrfzms-hlujlwyjxv (MIP) and/or volume rendering reformats were acquired of the central intracranial vasculature and neck separately. For radiation dose reduction, the following was used:? automated exposure control, adjustment of mA and/or kV according to patient size.? ? COMPARISON:? None. ? FINDINGS:? Image quality:? Excellent.? ? BRAIN:? CSF spaces:? Ventricles are normal in size and shape.? Basal cisterns are patent.? No extra-axial fluid collections.? ? Brain:? Age related volume loss and moderate periventricular and deep white matter small vessel chronic ischemic changes are seen.? No area of abnormal enhancement is noted intracranially.? No midline shift.? No intracranial bleeds or masses.? [place]- white matter interface appears intact.? ? Skull and face:? Calvarium and facial bones appear intact, without suspicious lesions.? Orbits appear normal.? ? Sinuses:? Sinuses and mastoids are clear.? ? HEAD CT ANGIOGRAPHY:? Anterior circulation:? Mild atherosclerotic calcifications are seen in intracranial portion of distal common carotid arteries bilaterally.? No hemodynamically significant stenosis is seen.? There is diminutive appearance of A1 segment of right anterior cerebral artery with more distal portion of right anterior cerebral artery supplied from left side via patent anterior communicating artery.? No hemodynamically significant stenosis or aneurysm is seen in left anterior cerebral artery and distal branches of right anterior cerebral artery.? The flow within the middle cerebral arteries is normal and symmetric.? The anterior communicating artery is seen.? No aneurysms are seen.? ? Posterior circulation:? Visualized portions of the vertebral arteries demonstrate normal caliber, and join to form a normal appearing basilar artery.? Flow within the posterior cerebral arteries is normal and symmetric.? No aneurysms are seen.? ? NECK CT ANGIOGRAPHY:? Carotid system:? The great vessels demonstrate a conventional anatomy as they arise from the aortic arch.? The origins of the common carotid arteries appear patent.? The common carotid arteries demonstrate normal caliber and courses.? The bifurcation regions are both widely patent.? The internal carotid arteries demonstrate normal calibers and courses.? ? Posterior circulation:? The origins of the vertebral arteries both appear widely patent.? The more superior extracranial portions of both vertebral arteries also demonstrate normal courses and calibers.? They join to form a normal appearing basilar artery.? ? Soft tissues:? Visualized neck soft tissues demonstrate no suspicious ab normalities.? ? Bones:? No suspicious bony lesions.? Visualized cervical spine appears normally aligned.? IMPRESSION:? ? 1. No CT evidence of acute intracranial abnormalities.? No area of abnormal intracranial enhancement. ? 2. Age related volume loss and edaf-sa-uwbjrpzr white matter chronic small vessel ischemic changes. ? 3. 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 More distal right anterior cerebral artery is supplied from the left side via patent anterior communicating artery. ? 4. No hemodynamically significant stenosis or aneurysm is seen in rest of the intracranial circulation. ? 5. No hemodynamically significant stenosis or aneurysm is seen in bilateral neck arteries.? ? Any quantitative measurements of stenosis were performed using NASCET criteria.? ? ? Dictated by: Jm Stover M.D. on 11/14/2022 at 9:21 ? ? Approved by: Jm Stover M.D. on 11/14/2022 at 9:26?? ECG Data Attestation: I personally reviewed and interpreted this ECG as follows: Prior ECG tracings: available for review Interpretation: Sinus rhythm first-degree AV block. Rate of 60 7p are 244 QRS 80 QTC 454. T- wave inverted in lead 3. No ST elevation or depression appreciated. Patient has prior from 10/31/2018 which appears similar to today's. MDM Narrative Medical decision making narrative: This is an 82-year-old male with history of hypertension, dyslipidemia, hypothyroidism, GERD, gout, chronic kidney disease and left eye enucleation who presents with vertigo symptoms initial onset was yesterday only lasted 10 minutes and then had an episode again today upon awakening at 5:30 a.m.. Patient states has been persistent. He also notes some discomfort in his left shoulder and neck radiating up to his ear for the past month which has been intermittent in nature. Patient's NIH is 0 on exam. But patient's history is concerning for possible dissection, aneurysm versus more benign cause of his vertigo. CT angio head and neck was obtained he is far outside the window for tPA and with an NIH of 0 would not felt be appropriate to give this medication. Patient was given fluids and transportation of contrast with chronic kidney disease and meclizine. Workup shows hemoglobin of 12 appears stable. Creatinine today is 1.43 appears consistent with baseline normal electrolytes, trope is negative. CT angio showed suggestion of congenitally small right a 1 segment versus high-grade stenosis/occlusion is supplied from the left via patent anterior communicating artery. Discussed these findings with patient discussed MRI brain although my suspicion is lower for stroke and more likely benign cause of vertigo. We did discuss that I can not be sure and would recommend MRI. Patient elects to not pursue this after discussion. Plan for discharge home he had ambulation trial without issue. Plan for follow up with primary care and ENT as needed. Discharge Plan Departure Patient Disposition: Home Clinical Impression: Vertigo Instructions: DI for Vertigo Activity Restrictions/Additional Instructions: Please follow-up with your physician for recheck. Also included is referral to ENT if you are having persistent symptoms for further workup. You may continue your home medications as prescribed. Prescription for meclizine is included, you can take 1-2 tablets every 6-8 hours as needed for vertigo symptoms. This is also available [id number] as [place]. Please return for new or worsening symptoms, severe headaches, new vision changes, new numbness, tingling or weakness, worsening vertigo symptoms, if you are unable to safely ambulate or other new or concerning changes. Prescriptions: New meclizine 25 mg tablet,chewable 25 mg PO QID Qty: 20 0RF Rx Instructions: 1-2 tablets every 6 hours as needed for symptoms. No Action rabeprazole [AcipHex] 20 MG tablet,delayed release (DR/EC) 20 mg PO QDAY Qty: 0 lisinopril 20 mg tablet 20 mg PO DAILY Qty: 90 3RF simvastatin [Zocor] 40 mg tablet 40 mg PO HS Qty: 90 3RF Rx Instructions: This script replaced the 14 day supply. Thank you! levothyroxine 100 mcg tablet 100 mcg PO DAILY colchicine 0.6 mg tablet 0.6 mg PO BID Referrals: Drew Howard MD [Physician] - Rito Arrieta MD [Primary Care Provider] - Stand Alone Forms: Patient Portal/API
--- NOTE | 2022-11-14 08:11 | DI.CT.S_ITS ---
PROCEDURE: CT ANGIO HEAD AND NECK INDICATIONS: new vertigo, right neck pain started 11/13/22 TECHNIQUE: Pre-contrast 4.5 mm thick sections acquired from the foramen magnum to the vertex. After the administration of intravenous contrast, 1 mm thick sections acquired from the aortic arch through the [place] of [place]. Post-contrast 4.5 mm thick sections then re-acquired from the foramen magnum to the vertex. 3-dimensional pmybarp-cyrvbisnv-ossarmuiww (MIP) and/or volume rendering reformats were acquired of the central intracranial vasculature and neck separately. For radiation dose reduction, the following was used: automated exposure control, adjustment of mA and/or kV according to patient size. COMPARISON: None. FINDINGS: Image quality: Excellent. BRAIN: CSF spaces: Ventricles are normal in size and shape. Basal cisterns are patent. No extra-axial fluid collections. Brain: Age related volume loss and moderate periventricular and deep white matter small vessel chronic ischemic changes are seen. No area of abnormal enhancement is noted intracranially. No midline shift. No intracranial bleeds or masses. [place]-white matter interface appears intact. Skull and face: Calvarium and facial bones appear intact, without suspicious lesions. Orbits appear normal. Sinuses: Sinuses and mastoids are clear. HEAD CT ANGIOGRAPHY: Anterior circulation: Mild atherosclerotic calcifications are seen in intracranial portion of distal common carotid arteries bilaterally. No hemodynamically significant stenosis is seen. There is diminutive appearance of A1 segment of right anterior cerebral artery with more distal portion of right anterior cerebral artery supplied from left side via patent anterior communicating artery. No hemodynamically significant stenosis or aneurysm is seen in left anterior cerebral artery and distal branches of right anterior cerebral artery. The flow within the middle cerebral arteries is normal and symmetric. The anterior communicating artery is seen. No aneurysms are seen. Posterior circulation: Visualized portions of the vertebral arteries demonstrate normal caliber, and join to form a normal appearing basilar artery. Flow within the posterior cerebral arteries is normal and symmetric. No aneurysms are seen. NECK CT ANGIOGRAPHY: Carotid system: The great vessels demonstrate a conventional anatomy as they arise from the aortic arch. The origins of the common carotid arteries appear patent. The common carotid arteries demonstrate normal caliber and courses. The bifurcation regions are both widely patent. The internal carotid arteries demonstrate normal calibers and courses. Posterior circulation: The origins of the vertebral arteries both appear widely patent. The more superior extracranial portions of both vertebral arteries also demonstrate normal courses and calibers. They join to form a normal appearing basilar artery. Soft tissues: Visualized neck soft tissues demonstrate no suspicious abnormalities. Bones: No suspicious bony lesions. Visualized cervical spine appears normally aligned. IMPRESSION: 1. No CT evidence of acute intracranial abnormalities. No area of abnormal intracranial enhancement. 2. Age related volume loss and zxqb-vc-bglgvsom white matter chronic small vessel ischemic changes. 3. 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 More distal right anterior cerebral artery is supplied from the left side via patent anterior communicating artery. 4. No hemodynamically significant stenosis or aneurysm is seen in rest of the intracranial circulation. 5. No hemodynamically significant stenosis or aneurysm is seen in bilateral neck arteries. Any quantitative measurements of stenosis were performed using NASCET criteria. Dictated by: Jm Stover M.D. on 11/14/2022 at 9:21 Approved by: Jm Stover M.D. on 11/14/2022 at 9:26
[2022-11-14] MEDS: MECLIZINE HCL 12.5 MG TABLET 50 MG PO (08:20)
[2022-11-14] MEDS: SODIUM CHLORIDE 0.9% 1,000 ML 1000 ML IV (08:22)
[2022-11-14 08:29] LABS: Add Manual Diff / Slide Review NO; Basophils Absolute Auto 0 /uL (0-100); Basophils Percent Auto 0.6 % (0-2); Eosinophils Absolute Auto 400 /uL (0-450); Hematocrit 36.9 % (41-53); Hemoglobin 12.5 g/dL (13.5-17.5); Lymphocytes Absolute Auto 1500 /uL (1100-4500); Lymphocytes Percent Auto 27.3 % (25-40); Mean Corpuscular HGB Conc 33.9 % (30-36); Mean Corpuscular Hemoglobin 27.8 PG (26-34); Mean Corpuscular Volume 82.2 fL (80-100); Monocytes Absolute Auto 500 /uL (0-900); Monocytes Percent Auto 8.6 % (3-14); Neutrophils Absolute Auto 3000 /uL (1500-7000); Neutrophils Percent Auto 56.5 % (50-75); Platelet Count 295 X10^3/uL (150-400); Red Blood Cell Count 4.49 X10^6/uL (4.5-5.9); Red Cell Distribution Width 14.9 % (11.6-14.8); White Blood Cell Count 5.3 X10^3/uL (4.5-11.0)
[2022-11-14 08:45] LABS: BUN Creatinine Ratio 12.6 (6-22); Blood Urea Nitrogen 18 mg/dL (9-20); Carbon Dioxide 26 mmol/L (22-32); Chloride 105 mmol/L (98-107); Estimated Glomerular Filt Rate 49 mL/min (>60); Glucose 105 mg/dL (80-110); HEMOLYSIS < 15 (0-50); Potassium 3.9 mmol/L (3.4-5.1); Sodium 140 mmol/L (137-145)
[2022-11-14 08:56] LABS: Troponin I < 0.012 ng/mL (0.01-0.034)
== END 2022-11-14 10:20 | disposition home or self-care (01) ==
PROVIDERS: Emergency Provider Emergency Medicine; PCP Internal Medicine
DX: R42 Dizziness and giddiness (principal); M54.2 Cervicalgia
CPT/HCPCS: 36415; 70496; 70498; 80048; 84484; 85025; 93005; 96360; 96361; 99284

== ENCOUNTER 2022-11-29 18:07 | Emergency (ER) | payer MEDICARE, OTHER, SELFPAY ==
[2022-11-29] VITALS (7 sets, daily range): BP systolic 120–145; BP diastolic 63–78; PULSE 73–89; RESP 20; TEMP 37.5; O2SAT 94–96
--- NOTE | 2022-11-29 18:11 | DI.RAD.S_ITS ---
PROCEDURE: XR KNEE LT 3V INDICATIONS: pain, swelling, no obvious injury TECHNIQUE: 3 views of the knee were acquired. COMPARISON: [facility], , KNEE 1-2 VIEWS RIGHT, 02/19/2017, 15:55. FINDINGS: Bones: No fractures or dislocations. No suspicious bony lesions. Tricompartmental degenerative changes. Soft tissues: Large suprapatellar joint effusion. IMPRESSION: 1. No fracture. Degenerative changes. 2. Large suprapatellar joint effusion suggests internal derangement. Dictated by: David Albright M.D. on 11/29/2022 at 18:57 Approved by: David Albright M.D. on 11/29/2022 at 18:58
--- NOTE | 2022-11-29 18:18 | ED_ITS ---
HPI - General Adult General Chief complaint: Extremity Problem,Nontraumatic Stated complaint: L Knee Swelling Time Seen by Provider: 11/29/22 18:10 History of Present Illness HPI narrative: 82-year-old male former smoker with history of hypertension, hypothyroid and gout presents by EMS for evaluation of a painful swollen left knee in the absence of injury. He does have a history of gout and states this feels similar many ways though is more severe. He is had increasing pain over the past day or 2 and states he is had little to no relief with the colchicine that historically provides him relief. He denies fever or chills. He has significant pain with attempts at range of motion or ambulation and improvement with rest. He denies any dizziness, weakness or lightheadedness. Related Data Home Medications Medication Instructions Recorded Confirmed rabeprazole 20 mg tablet,delayed 20 mg PO QDAY ##0 11/27/12 11/11/22 release (AcipHex) colchicine 0.6 mg tablet 0.6 mg PO BID 07/26/21 11/11/22 levothyroxine 100 mcg tablet 100 mcg PO DAILY 11/11/22 11/11/22 Previous Rx's Medication Instructions Recorded lisinopril 20 mg tablet 20 mg PO DAILY #90 tabs 08/01/22 simvastatin 40 mg tablet (Zocor) 40 mg PO HS #90 tabs 10/14/22 meclizine 25 mg chewable tablet 25 mg PO QID #20 tabs 11/14/22 Allergies Allergy/AdvReac Type Severity Reaction Status Date / Time No Known Drug Allergies Allergy Verified 11/14/22 07:52 Review of Systems Review of Systems Narrative: GENERAL: Denies chills, fatigue, malaise, fever, sweats. HEENT: Denies sinus pain, ear pain, sore throat, difficulty swallowing, dizziness. RESPIRATORY: Denies dyspnea, cough, wheezing, hemoptysis, sputum. CARDIOVASCULAR: Denies chest pain, palpitations, orthopnea, edema, GASTROINTESTINAL: Denies nausea, vomiting, abdominal pain, diarrhea, constipation, melena. : Denies dysuria, frequency, incontinence, hematuria, urinary retention. MUSCULOSKELETAL: See HPI SKIN: Denies rash, skin lesions, or other NEUROLOGIC: Denies weakness, headache, numbness, change in speech, confusion, seizures, incoordination. PSYCHIATRIC: No concerning psychosocial issues. 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 Well-developed patient, in mild distress. HEAD: Atraumatic. Normocephalic. EYES: Pupils equal round and reactive. Extraocular motions intact. No scleral icterus. No injection or drainage. ENT: Nose without bleeding, purulent drainage. Throat without erythema, tonsillar hypertrophy or exudate. Airway patent. NECK: Trachea midline. Non tender CARDIOVASCULAR: Regular rate and rhythm without murmurs, gallops, or rubs. RESPIRATORY: Clear to auscultation. Breath sounds equal bilaterally. No wheezes, rales, or rhonchi. GASTROINTESTINAL: Abdomen soft, non-tender, nondistended. EXTREMITIES: Left knee with large effusion and some warmth but no redness. Patient has range of motion that is more limited by the effusion than pain. BACK: Nontender without deformity or crepitance. No flank tenderness. NEURO: AOx3. SKIN: No rash or erythema of visible areas Initial Vital Signs Initial Vital Signs: Vital Signs Temperature 99.5 F 11/29/22 18:16 Pulse Rate 89 11/29/22 18:16 Respiratory Rate 20 11/29/22 18:16 Blood Pressure 133/72 11/29/22 18:16 Pulse Oximetry 96 11/29/22 18:16 Oxygen Delivery Method Room Air 11/29/22 18:16 Procedures Joint Aspiration Joint Asp./Inject. 1: Time Out Performed: Yes Side of body: left Joint Aspirated: knee Skin Prep: Chlorhexidine Local Anesthetic: lidocaine 2% Amount of anesthesia used (mL): 5 Needle Size Used: 18G Fluid Obtained: clear Total fluid obtained (mL): 80 Patient Tolerated Procedure: Well Complications: none Course Orders Ordered: ED Orders 11/29/22 18:11 XR knee LT 3V Stat 11/29/22 18:55 BMP [Basic Metabolic Panel] Stat CBC Auto Diff [Complete Blood Count AUTO DIFF] Stat CRP [C-Reactive Protein Quant] Stat ESR [Erythrocyte Sedimentation Rate] Stat Uric Acid Stat 11/29/22 20:45 Cell Count w Diff Body Fluid Stat Crystals Body Fluid - IN-HOUSE Stat 11/29/22 20:54 Body Fluid Culture Stat Consultations Consultation #1: Discussed patient's presentation, medical history and labs with on-call orthopedist. We sure the opinion that the findings are not consistent with septic arthritis. Recommends pain control and follow-up. Vital Signs Vital signs: Vital Signs - 8 hr 11/29/22 18:16 11/29/22 19:28 11/29/22 19:30 Temperature 99.5 F Pulse Rate 89 76 Respiratory Rate 20 Blood Pressure 133/72 122/67 Pulse Oximetry 96 94 Oxygen Delivery Method Room Air 11/29/22 19:30 11/29/22 20:00 11/29/22 20:00 Temperature Pulse Rate 76 75 Respiratory Rate Blood Pressure 127/68 Pulse Oximetry 94 95 Oxygen Delivery Method 11/29/22 20:30 11/29/22 20:30 11/29/22 21:00 Temperature Pulse Rate 76 Respiratory Rate Blood Pressure 145/78 H 120/63 Pulse Oximetry 96 Oxygen Delivery Method 11/29/22 21:00 11/29/22 21:30 11/29/22 21:30 Temperature Pulse Rate 73 73 Respiratory Rate Blood Pressure 127/65 Pulse Oximetry 96 95 Oxygen Delivery Method Medical Decision Making Lab Data 11/29/22 18:55 11/29/22 18:55 Labs: Lab Results 11/29/22 11/29/22 11/29/22 Range/Units 18:55 18:55 20:45 WBC 8.3 (4.5-11.0) X10^3/uL RBC 4.22 L (4.5-5.9) X10^6/uL Hgb 11.7 L (13.5-17.5) g/dL Hct 34.8 L (41-53) % MCV 82.5 (80-100) fL MCH 27.7 (26-34) PG MCHC 33.6 (30-36) % RDW 14.6 (11.6-14.8) % Plt Count 264 (150-400) X10^3/uL Neut % (Auto) 78.1 H (50-75) % Lymph % (Auto) 10.0 L (25-40) % [place] % (Auto) 10.5 (3-14) % Eos % (Auto) 0.9 L (2-4) % Baso % (Auto) 0.5 (0-2) % Neut # (Auto) 6500 (7091-8123) /uL Lymph # (Auto) 800 L (7521-3051) /uL [place] # (Auto) 900 (0-900) /uL Eos # (Auto) 100 (0-450) /uL Baso # (Auto) 0 (0-100) /uL ESR 56 H (0-15) MM/HR Sodium 136 L (137-145) mmol/L Potassium 3.1 L (3.4-5.1) mmol/L Chloride 102 (98-107) mmol/L Carbon Dioxide 25 (22-32) mmol/L BUN 19 (9-20) mg/dL Creatinine 1.50 H (0.66-1.25) mg/dL Estimated GFR 46 L (>60) mL/min BUN/Creatinine Ratio 12.7 (6-22) Glucose 148 H (80-110) mg/dL Uric Acid 7.3 (3.5-8.5) mg/dL Calcium 7.1 L (8.4-10.2) mg/dL C-Reactive Protein 17.7 H (<1.0) mg/dL Fluid Color Yellow Fluid Appearance Hazy Fluid RBC 703 /uL Fld Tot Nucleated Cell 70064 /uL Fluid Polynuclear WBCs 95 % Fluid Mononuclear WBCs 5 % Fluid Eosinophils 0 % Fluid Other Cells TNP Fluid Crystals (NONE) Body Fluid Clot No clots present 11/29/22 Range/Units 20:45 WBC (4.5-11.0) X10^3/uL RBC (4.5-5.9) X10^6/uL Hgb (13.5-17.5) g/dL Hct (41-53) % MCV (80-100) fL MCH (26-34) PG MCHC (30-36) % RDW (11.6-14.8) % Plt Count (150-400) X10^3/uL Neut % (Auto) (50-75) % Lymph % (Auto) (25-40) % [place] % (Auto) (3-14) % Eos % (Auto) (2-4) % Baso % (Auto) (0-2) % Neut # (Auto) (8388-8274) /uL Lymph # (Auto) (1233-0772) /uL [place] # (Auto) (0-900) /uL Eos # (Auto) (0-450) /uL Baso # (Auto) (0-100) /uL ESR (0-15) MM/HR Sodium (137-145) mmol/L Potassium (3.4-5.1) mmol/L Chloride (98-107) mmol/L Carbon Dioxide (22-32) mmol/L BUN (9-20) mg/dL Creatinine (0.66-1.25) mg/dL Estimated GFR (>60) mL/min BUN/Creatinine Ratio (6-22) Glucose (80-110) mg/dL Uric Acid (3.5-8.5) mg/dL Calcium (8.4-10.2) mg/dL C-Reactive Protein (<1.0) mg/dL Fluid Color Fluid Appearance Fluid RBC /uL Fld Tot Nucleated Cell /uL Fluid Polynuclear WBCs % Fluid Mononuclear WBCs % Fluid Eosinophils % Fluid Other Cells Fluid Crystals None present (NONE) Body Fluid Clot MDM Narrative Medical decision making narrative: CC: 82-year-old male with pain and swelling of left knee in the absence of injury Complicating co-morbidities: Age, hypertension, hyperlipidemia, gout Data collected from: Patient Medical records reviewed: Prior notes reviewed in our EMR Differential considered, but not limited to: Septic arthritis versus gouty arthritis versus osteoarthritis versus hemarthrosis versus other Exam documented above, pertinent findings include: Large left knee effusion, relatively well-preserved range of motion, no erythema, no lymphangitis Lab Test results independently reviewed as above. Pertinent findings: No leukocytosis or left shift, not surprisingly inflammatory markers are significantly elevated, uric acid is normal. Synovial fluid notes 30,000 totally nucleated cells, 95 polynuclear WBCs Independently reviewed EKG as above Imaging studies independently reviewed: No bony abnormality, large suprapatellar joint effusion Consultations: Discussed with on-call orthopedist, see details above Treatments: Joint aspiration Re-evaluations: Patient felt tremendous improvement, ambulatory department feeling great, requesting discharge Discussion: Patient with large effusion of left knee in the absence of injury. Multiple diagnoses considered has noted above. History and physical exam as well as labs highly suggestive against septic arthritis. No crystals noted. Patient feels great after tap. Ambulatory in department. Appropriate for discharge . Disposition: see below, along with detailed discharge instructions that have been reviewed with patient as well as indications for ED re-evaluation and addit ional outpatient follow up Discharge Plan Departure Patient Disposition: Home Clinical Impression: Effusion of left knee Instructions: DI for Knee Effusion Activity Restrictions/Additional Instructions: *You have been diagnosed with [left knee effusion. As we discussed there is no evidence of infection or gout. This could certainly be related to arthritis but as we discussed there is no sign of any significant abnormality that requires a specific intervention or treatment] *What to do: *Please continue to take your regular medications as directed. [ ] New medication prescriptions sent to your pharmacy: [ ] [ ] New medication written as a paper prescription [ ] No new medications given *Please follow up with your primary care provider in 2-3 days, call for an appointment. Let them know you were seen in the Emergency Department and that we ask that you be seen in follow up. We will electronically transmit a record of today's note if your PCP is in our system *If you do not have a primary care provider please contact the [facility] Resource line at [phone]. They will ask some questions about your medical history and help get you set up with a doctor in the community. *Return to Emergency Department if you should have any new, worsening or concerning symptoms, such as [fever greater than 101 F, shaking chills, worsening pain, persistent vomiting or other bothersome symptoms] Prescriptions: No Action rabeprazole [AcipHex] 20 MG tablet,delayed release (DR/EC) 20 mg PO QDAY Qty: 0 lisinopril 20 mg tablet 20 mg PO DAILY Qty: 90 3RF simvastatin [Zocor] 40 mg tablet 40 mg PO HS Qty: 90 3RF Rx Instructions: This script replaced the 14 day supply. Thank you! levothyroxine 100 mcg tablet 100 mcg PO DAILY meclizine 25 mg tablet,chewable 25 mg PO QID Qty: 20 0RF Rx Instructions: 1-2 tablets every 6 hours as needed for symptoms. colchicine 0.6 mg tablet 0.6 mg PO BID Referrals: Rito Arrieta MD [Primary Care Provider] - Stand Alone Forms: Patient Portal/API
[2022-11-29 19:03] LABS: Add Manual Diff / Slide Review NO; Basophils Absolute Auto 0 /uL (0-100); Basophils Percent Auto 0.5 % (0-2); Eosinophils Absolute Auto 100 /uL (0-450); Eosinophils Percent Auto 0.9 % (2-4); Hematocrit 34.8 % (41-53); Hemoglobin 11.7 g/dL (13.5-17.5); Lymphocytes Absolute Auto 800 /uL (1100-4500); Mean Corpuscular HGB Conc 33.6 % (30-36); Mean Corpuscular Hemoglobin 27.7 PG (26-34); Mean Corpuscular Volume 82.5 fL (80-100); Monocytes Absolute Auto 900 /uL (0-900); Monocytes Percent Auto 10.5 % (3-14); Neutrophils Absolute Auto 6500 /uL (1500-7000); Neutrophils Percent Auto 78.1 % (50-75); Platelet Count 264 X10^3/uL (150-400); Red Blood Cell Count 4.22 X10^6/uL (4.5-5.9); Red Cell Distribution Width 14.6 % (11.6-14.8); White Blood Cell Count 8.3 X10^3/uL (4.5-11.0)
[2022-11-29 19:18] LABS: BUN Creatinine Ratio 12.7 (6-22); Blood Urea Nitrogen 19 mg/dL (9-20); Calcium 7.1 mg/dL (8.4-10.2); Carbon Dioxide 25 mmol/L (22-32); Chloride 102 mmol/L (98-107); Estimated Glomerular Filt Rate 46 mL/min (>60); Glucose 148 mg/dL (80-110); HEMOLYSIS < 15 (0-50); Potassium 3.1 mmol/L (3.4-5.1); Sodium 136 mmol/L (137-145); Uric Acid 7.3 mg/dL (3.5-8.5)
[2022-11-29 19:24] LABS: Erythrocyte Sedimentation Rate 56 MM/HR (0-15)
[2022-11-29 19:29] LABS: C-Reactive Protein Quant 17.7 mg/dL (<1.0)
[2022-11-29 21:09] LABS: Body Fluid Tot Nucleated Cells 30823 /uL
[2022-11-29 21:12] LABS: Body Fluid Red Blood Cells 703 /uL
[2022-11-29 21:39] LABS: Crystals Body Fluid - IN-HOUSE NONE Present
[2022-11-29 21:40] LABS: Body Fluid Appearance HAZY; Body Fluid Clotted? NO CLOTS PRESENT; Body Fluid Color YELLOW
[2022-11-29 21:46] LABS: Eosinophils Body Fluid 0 %; Mononuclear WBC Body Fluid 5 %; Polynuclear WBC Body Fluid 95 %
== END 2022-11-29 22:11 | disposition home or self-care (01) ==
PROVIDERS: Emergency Provider Emergency Medicine; PCP Internal Medicine
DX: M25.462 Effusion, left knee (principal)
CPT/HCPCS: 20610; 36415; 73562; 80048; 84550; 85025; 85651; 86140; 87070; 87075; 87205; 89051; 89060; 99283

== ENCOUNTER 2023-02-18 10:19 | Emergency (ER) | payer MEDICARE, OTHER, SELFPAY ==
[2023-02-18 10:24] VITALS: BP 123/66; PULSE 115; RESP 16; TEMP 37.1; O2SAT 97; BMI 27.2
--- NOTE | 2023-02-18 10:28 | DI.RAD.S_ITS ---
PROCEDURE: XR KNEE LT 3V INDICATIONS: swelling TECHNIQUE: 3 views of the knee were acquired. COMPARISON: [facility], CR, XR KNEE LT 3V, 11/29/2022, 18:11. FINDINGS: Bones: No fractures or dislocations. No suspicious bony lesions. Wall tricompartmental arthritic change. Soft tissues: Prominent joint effusion. No suspicious soft tissue calcifications. IMPRESSION: Prominent effusion. No visualized acute fracture or dislocation. However, if clinical concern and/or pain persist, short interval imaging followup in 7-10 days is recommended, as occult injury cannot be definitively excluded. Dictated by: Sandra Moise M.D. on 02/18/2023 at 11:37 Approved by: Sandra Moise M.D. on 02/18/2023 at 11:37
[2023-02-18 12:40] VITALS: BP 132/70; PULSE 104; RESP 16; O2SAT 96
--- NOTE | 2023-02-18 14:18 | ED.EXTPRO ---
HPI - Extremity Problem General Chief complaint: Extremity Problem,Nontraumatic Stated complaint: [place] swell up x1/dizzy/ tingly Time Seen by Provider: 02/18/23 14:18 Source: patient Mode of arrival: Wheelchair History of Present Illness HPI Narrative: Patient is a 82-year-old male with history of gout recurrent left knee flares throughout the summer presenting today with ongoing left knee swelling. He was started on allopurinol to help prevent the flares he has been on multiple courses of prednisone over the summer. He reports that he finished his prednisone 2 days ago and is having increasing pain. He states that he is no longer allowed to take colchicine because of his kidneys. He initially was seen evaluated here the end of October he had arthrocentesis which did not show any evidence of crystals or growth. He had elevated ESR CRP and uric acid of 7.3. He denies any fever there is no erythema. It hurts to ambulate. Related Data Home Medications Medication Instructions Recorded Confirmed colchicine (gout) 0.6 mg tablet 0.6 mg PO BID 07/26/21 01/09/23 Previous Rx's Medication Instructions Recorded lisinopril 20 mg tablet 20 mg PO DAILY #90 tabs 08/01/22 simvastatin 40 mg tablet (Zocor) 40 mg PO HS #90 tabs 10/14/22 meclizine 25 mg chewable tablet 25 mg PO QID #20 tabs 11/14/22 prednisone 10 mg tablet See Rx Instructions .Route 12/02/22 .COMPLEX #20 tabs allopurinol 100 mg tablet 100 mg PO DAILY #90 tabs 12/19/22 rabeprazole 20 mg tablet,delayed 20 mg PO DAILY #90 tabs 01/16/23 release (AcipHex) levothyroxine 100 mcg tablet 100 mcg PO DAILY #90 tabs 02/17/23 hydrocodone 5 mg-acetaminophen 325 1 tab PO Q6H PRN pain #20 tabs 02/18/23 mg tablet Allergies Allergy/AdvReac Type Severity Reaction Status Date / Time No Known Drug Allergies Allergy Verified 02/18/23 10:24 Review of Systems Review of Systems ROS Unobtainable: All systems reviewed & are unremarkable except as noted in HPI and below Patient History Medical History Abnormal prostate by palpation Acquired hypothyroidism Bladder outlet obstruction BPH w urinary obs/LUTS Elevated PSA Erectile dysfunction Essential hypertension History of arthritis Mixed hyperlipidemia Overweight Stage 3b chronic kidney disease (CKD) Surgical History Hx of appendectomy Hx of cholecystectomy Family History Father Cancer Mother Hyperlipidemia Hypertension Gout 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), 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 Smoking Status: Former smoker Tobacco: How many years used: 35 alcohol intake: current Type(s) of exercise: independent ambulation frequency: daily duration: > 90 minutes/day Smoking Status: Former smoker alcohol intake frequency: holidays/special occasions only Substance Use Type: does not use Exam Initial Vital Signs Initial Vital Signs: Vital Signs Temperature 98.8 F 02/18/23 10:24 Pulse Rate 115 H 02/18/23 10:24 Respiratory Rate 16 02/18/23 10:24 Blood Pressure 123/66 02/18/23 10:24 Pulse Oximetry 97 02/18/23 10:24 Oxygen Delivery Method Room Air 02/18/23 10:24 GENERAL: Alert pleasant 82-year-old male CARDIOVASCULAR: peripheral pulses in tact, cap refill <2 sec RESPIRATORY: No respiratory distress, speaks in full sentences without difficulty EXTREMITIES: Normal range of motion, no clubbing or edema. Neurovascularly intact Left knee does have some joint effusion not erythematous not warm to touch distal pedal pulse intact NEUROLOGICAL: Cranial nerves II through XII grossly intact. Normal gait and speech. SKIN: Warm, dry, no petechiae, no rashes or lesions. Course Orders Ordered: ED Orders 02/18/23 10:28 XR knee LT 3V Stat 02/18/23 14:45 BMP [Basic Metabolic Panel] Stat CBC Auto Diff [Complete Blood Count AUTO DIFF] Stat PHOS [Phosphorous] Stat TSH [Thyroid Stimulating Hormone] Stat Uric Acid Stat Discontinued Medications Acetaminophen (Acetaminophen 325 Mg Tablet) 650 mg PO NOW ONE Stop: 02/18/23 14:16 Last Admin: 02/18/23 14:40 Dose: 650 mg Documented By: BECCA Calcium Gluconate 9.3 meq/ (Sodium Chloride) 70 mls @ 140 mls/hr IV NOW ONE Stop: 02/18/23 16:13 Last Infusion: 02/18/23 16:44 Dose: 0 mls/hr Documented By: Admin: 02/18/23 15:57 Dose: 140 mls/hr Documented By: Vital Signs Vital signs: Vital Signs - 8 hr 02/18/23 12:40 02/18/23 16:00 02/18/23 16:00 Pulse Rate 104 H 81 Respiratory Rate 16 Blood Pressure 132/70 135/72 Pulse Oximetry 96 97 Oxygen Delivery Method Room Air 02/18/23 16:30 02/18/23 16:30 02/18/23 17:00 Pulse Rate 78 84 Respiratory Rate 29 H 25 H Blood Pressure 127/66 Pulse Oximetry 95 94 Oxygen Delivery Method MDM - Extremity (Nontraumatic) Lab Data 02/18/23 14:45 02/18/23 14:45 Labs: Lab Results 02/18/23 02/18/23 02/18/23 Range/Units 14:45 14:45 14:45 WBC 11.4 H (4.5-11.0) X10^3/uL RBC 4.19 L (4.5-5.9) X10^6/uL Hgb 11.4 L (13.5-17.5) g/dL Hct 35.1 L (41-53) % MCV 83.7 (80-100) fL MCH 27.2 (26-34) PG MCHC 32.5 (30-36) % RDW 17.3 H (11.6-14.8) % Plt Count 332 (150-400) X10^3/uL Neut % (Auto) 82.8 H (50-75) % Lymph % (Auto) 8.2 L (25-40) % [place] % (Auto) 8.2 (3-14) % Eos % (Auto) 0.6 L (2-4) % Baso % (Auto) 0.2 (0-2) % Neut # (Auto) 9400 H (3617-2852) /uL Lymph # (Auto) 900 L (4083-5078) /uL [place] # (Auto) 900 (0-900) /uL Eos # (Auto) 100 (0-450) /uL Baso # (Auto) 0 (0-100) /uL Sodium 137 (137-145) mmol/L Potassium 3.2 L (3.4-5.1) mmol/L Chloride 103 (98-107) mmol/L Carbon Dioxide 24 (22-32) mmol/L BUN 21 H (9-20) mg/dL Creatinine 1.27 H (0.66-1.25) mg/dL Estimated GFR 56 L (>60) mL/min BUN/Creatinine Ratio 16.5 (6-22) Glucose 83 (80-110) mg/dL Uric Acid 5.8 (3.5-8.5) mg/dL Calcium 5.6 L* (8.4-10.2) mg/dL Phosphorus 5.0 H (2.3-3.7) mg/dL TSH (0.47-4.68) uIU/mL 02/18/23 Range/Units 14:45 WBC (4.5-11.0) X10^3/uL RBC (4.5-5.9) X10^6/uL Hgb (13.5-17.5) g/dL Hct (41-53) % MCV (80-100) fL MCH (26-34) PG MCHC (30-36) % RDW (11.6-14.8) % Plt Count (150-400) X10^3/uL Neut % (Auto) (50-75) % Lymph % (Auto) (25-40) % [place] % (Auto) (3-14) % Eos % (Auto) (2-4) % Baso % (Auto) (0-2) % Neut # (Auto) (3935-4794) /uL Lymph # (Auto) (5124-1732) /uL [place] # (Auto) (0-900) /uL Eos # (Auto) (0-450) /uL Baso # (Auto) (0-100) /uL Sodium (137-145) mmol/L Potassium (3.4-5.1) mmol/L Chloride (98-107) mmol/L Carbon Dioxide (22-32) mmol/L BUN (9-20) mg/dL Creatinine (0.66-1.25) mg/dL Estimated GFR (>60) mL/min BUN/Creatinine Ratio (6-22) Glucose (80-110) mg/dL Uric Acid (3.5-8.5) mg/dL Calcium (8.4-10.2) mg/dL Phosphorus (2.3-3.7) mg/dL TSH 0.322 L (0.47-4.68) uIU/mL Imaging Data Extremity x-ray #1: Radiologist's Impression: PROCEDURE:? XR KNEE LT 3V ? INDICATIONS:? swelling ? TECHNIQUE:? 3 views of the knee were acquired.? ? COMPARISON:? [facility], CR, XR KNEE LT 3V, 11/29/2022, 18:11. ? FINDINGS:? ? Bones:? No fractures or dislocations.? No suspicious bony lesions.? Wall tricompartmental arthritic change. ? Soft tissues:? Prominent joint effusion.? No suspicious soft tissue calcifications.? ? ? IMPRESSION:? Prominent effusion. No visualized acute fracture or dislocation. However, if clinical concern and/or pain persist, short interval imaging followup in 7-10 days is recommended, as occult injury cannot be definitively excluded. ? ? Dictated by: Sandra Moise M.D. on 02/18/2023 at 11:37 ? ? [facility] Narrative Medical decision making narrative: Patient 82-year-old male presenting with ongoing left knee, previously diagnosed with gout started on allopurinol has been on prednisone multiple times this summer. He is afebrile it is non erythematous no concern for septic joint at this time. He is previously had kidney problems and unable to take colchicine. Blood work was done. Labs reviewed no leukocytosis no anemia potassium is 3.2 creatinine is 1.2 previously 1.5 a uric acid 5.8. Abnormal labs include a calcium of 5.6 and a phosphorus of 5.0 with a TSH of 0.3 His calcium is replaced with calcium gluconate. He really has no complaints confirms this for his knee. Patient will need outpatient follow-up. Parathyroid is pending and is a send out. Both he and his understand need for close outpatient follow-up and repeat labs. Discharge Plan Departure Patient Disposition: Home Clinical Impression: Chronic knee pain, Hypocalcemia, Hypophosphatemia Instructions: Hypoparathyroidism, DI for Knee Pain Activity Restrictions/Additional Instructions: *You have been diagnosed with chronic knee pain, hypocalcemia, hyperphosphatemia *What to do: At this time you at parathyroid hormone that is still pending you will need further testing and evaluation definitely have labs rechecked this week with your primary care provider. *Continue to take medications as directed [place] 1 tablet every 6 hours if needed for severe pain *Follow up with your primary care provider in 2-3 days or call [phone] Arrieta tomorrow to schedule follow-up appointment or at least blood work to be rechecked this week *Return to ER if you should have increasing pain weakness shaking or any new, worsening or concerning symptoms CONTROLLED SUBSTANCE DISCHARGE (Narcotoic/benzodiazepine/Flexeril/Phenergan) 1. You have been prescribed narcotic medications, it does have acetaminophen/Tylenol/paracetamol in it, DO NOT TAKE MORE THAN 4,00mg in 24 hours of Tylenol. TRAMADOL DOES NOT CONTAIN TYLENOL 2. Please understand that we cannot provide further refills of narcotics, benzodiazepines or controlled substances through the ED and her pain management will need to be through your provider. 3. While on these medications you cannot drive or operate heavy machinery. 4. You cannot sign legal documents or perform any duties such as this. 5. As long as you're taking opiate pain medications he should also be taking a stool softener such as Colace, Dulcolax, MiraLAX or prune juice, to help avoid constipation. Prescriptions: New hydrocodone-acetaminophen 5-325 mg tablet 1 tab PO Q6H PRN (Reason: pain) Qty: 20 0RF No Action lisinopril 20 mg tablet 20 mg PO DAILY Qty: 90 3RF simvastatin [Zocor] 40 mg tablet 40 mg PO HS Qty: 90 3RF Rx Instructions: This script replaced the 14 day supply. Thank you! prednisone 10 mg tablet See Rx Instructions .Route .COMPLEX Qty: 20 2RF Rx Instructions: 4 tablets daily for 2 days, then 3 tablets daily for 2 days, then 2 tablets daily for 2 days, then 1 tablet daily for 2 days then stop; allopurinol 100 mg tablet 100 mg PO DAILY Qty: 90 3RF rabeprazole [AcipHex] 20 mg tablet,delayed release (DR/EC) 20 mg PO DAILY Qty: 90 3RF levothyroxine 100 mcg tablet 100 mcg PO DAILY Qty: 90 3RF meclizine 25 mg tablet,chewable 25 mg PO QID Qty: 20 0RF Rx Instructions: 1-2 tablets every 6 hours as needed for symptoms. colchicine (gout) 0.6 mg tablet 0.6 mg PO BID Referrals: Rito Arrieta MD [Primary Care Provider] - Stand Alone Forms: Patient Portal/API
[2023-02-18] MEDS: ACETAMINOPHEN 325 MG TABLET 650 MG PO (14:40)
[2023-02-18 15:06] LABS: Add Manual Diff / Slide Review NO; Basophils Absolute Auto 0 /uL (0-100); Basophils Percent Auto 0.2 % (0-2); Eosinophils Absolute Auto 100 /uL (0-450); Eosinophils Percent Auto 0.6 % (2-4); Hematocrit 35.1 % (41-53); Hemoglobin 11.4 g/dL (13.5-17.5); Lymphocytes Absolute Auto 900 /uL (1100-4500); Lymphocytes Percent Auto 8.2 % (25-40); Mean Corpuscular HGB Conc 32.5 % (30-36); Mean Corpuscular Hemoglobin 27.2 PG (26-34); Mean Corpuscular Volume 83.7 fL (80-100); Monocytes Absolute Auto 900 /uL (0-900); Monocytes Percent Auto 8.2 % (3-14); Neutrophils Absolute Auto 9400 /uL (1500-7000); Neutrophils Percent Auto 82.8 % (50-75); Platelet Count 332 X10^3/uL (150-400); Red Blood Cell Count 4.19 X10^6/uL (4.5-5.9); Red Cell Distribution Width 17.3 % (11.6-14.8); White Blood Cell Count 11.4 X10^3/uL (4.5-11.0)
[2023-02-18 15:17] LABS: BUN Creatinine Ratio 16.5 (6-22); Blood Urea Nitrogen 21 mg/dL (9-20); Carbon Dioxide 24 mmol/L (22-32); Chloride 103 mmol/L (98-107); Estimated Glomerular Filt Rate 56 mL/min (>60); Glucose 83 mg/dL (80-110); HEMOLYSIS < 15 (0-50); Potassium 3.2 mmol/L (3.4-5.1); Sodium 137 mmol/L (137-145); Uric Acid 5.8 mg/dL (3.5-8.5)
[2023-02-18 15:21] LABS: Calcium 5.6 mg/dL (8.4-10.2)
[2023-02-18] MEDS: CALCIUM GLUCONATE 9.3 MEQ in SODIUM CHLORIDE 0.9% 50 ML 140 MEQ IV (15:57)
[2023-02-18 16:00] VITALS: BP 135/72; PULSE 81; O2SAT 97
[2023-02-18 16:30] VITALS: BP 127/66; PULSE 78; RESP 29; O2SAT 95
[2023-02-18 17:00] VITALS: PULSE 84; RESP 25; O2SAT 94
[2023-02-18 17:24] LABS: Thyroid Stimulating Hormone 0.322 uIU/mL (0.47-4.68)
[2023-02-20 06:38] LABS: Parathyroid Hormone Int 18 pg/mL (15-65)
== END 2023-02-18 17:29 | disposition home or self-care (01) ==
PROVIDERS: Emergency Provider Emergency Medicine; PCP Internal Medicine
DX: M25.562 Pain in left knee (principal); E83.51 Hypocalcemia; E83.39 Other disorders of phosphorus metabolism
CPT/HCPCS: 36415; 73562; 80048; 83970; 84100; 84443; 84550; 85025; 99284; J0612

== ENCOUNTER 2023-02-20 13:30 | Inpatient (IN) | payer MEDICARE, OTHER, SELFPAY ==
[2023-02-20] VITALS (22 sets, daily range): BP systolic 114–147; BP diastolic 60–98; PULSE 81–110; RESP 20–24; TEMP 37.1; O2SAT 94–98; BMI 27.2; BMI 26.9
--- NOTE | 2023-02-20 14:11 | ED.WEAKNESS ---
HPI - Weakness <Nilay Zamarripa MD - Last Filed: 03/07/23 09:01> General Chief complaint: Weakness Stated complaint: weakness/calcium low [place] Refer T-0 Time Seen by Provider: 02/20/23 13:53 Source: patient Mode of arrival: Wheelchair History of Present Illness HPI Narrative: Patient recently seen here 2 days ago for generalized weakness left knee pain low calcium low phosphorus. Patient seen by primary care today, I spoke with primary care provider Dr. Arrieta, would like patient to be seen in the emergency department again for profound weakness. Two weeks ago patient was able to walk unassisted but now is in a wheelchair. Calcium replacement was done 2 days ago here. Patient has not improved. Denies any headache chest pain back pain abdominal pain. Patient has stage 3 kidney disease. 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 Sees Dr. Rodriguez with Urology. Does not have endocrinology services. Patient has chronic left knee pain. Denies any changes in bowel habits mood swings abdominal pain Related Data Home Medications Medication Instructions Recorded Confirmed colchicine (gout) 0.6 mg tablet 0.6 mg PO BID 07/26/21 02/25/23 allopurinol 100 mg tablet 100 mg PO DAILY 02/21/23 02/25/23 Previous Rx's Medication Instructions Recorded lisinopril 20 mg tablet 20 mg PO DAILY #90 tabs 08/01/22 simvastatin 40 mg tablet (Zocor) 40 mg PO HS #90 tabs 10/14/22 rabeprazole 20 mg tablet,delayed 20 mg PO DAILY #90 tabs 01/16/23 release (AcipHex) levothyroxine 100 mcg tablet 100 mcg PO DAILY #90 tabs 02/17/23 prednisone 10 mg tablet See Rx Instructions .Route 02/23/23 .COMPLEX #147 tabs Allergies Allergy/AdvReac Type Severity Reaction Status Date / Time No Known Drug Allergies Allergy Verified 02/25/23 13:12 Review of Systems <Nilay Zamarripa MD - Last Filed: 03/07/23 09:01> Review of Systems Narrative: GENERAL: negative chills, positive fatigue, malaise, negative fever, sweats. HEENT: negative sinus pain, ear pain, sore throat RESPIRATORY: negative dyspnea, cough CARDIOVASCULAR: negative chest pain, palpitations GASTROINTESTINAL: negative nausea, vomiting, abdominal pain : negative dysuria, frequency, hematuria MUSCULOSKELETAL: negative muscle or bony pain SKIN: negative rash, skin lesions NEUROLOGIC: negative weakness, numbness ROS Unobtainable: All systems reviewed & are unremarkable except as noted in HPI and below Patient History <Nilay Zamarripa MD - Last Filed: 03/07/23 09:01> Medical History Abnormal prostate by palpation Acquired hypothyroidism Bladder outlet obstruction BPH w urinary obs/LUTS Elevated PSA Erectile dysfunction Essential hypertension Gout History of arthritis Mixed hyperlipidemia Overweight Stage 3b chronic kidney disease (CKD) Surgical History Hx of appendectomy Hx of cholecystectomy Family History Father Cancer Mother Hyperlipidemia Hypertension Gout 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 EYES: Pupils equal round ENT: Mucous membranes moist. NECK: Trachea midline. No thyromegaly CARDIOVASCULAR: Regular rate and rhythm RESPIRATORY: Clear to auscultation. Breath sounds equal bilaterally. No wheezes, rales, or rhonchi. GASTROINTESTINAL: Abdomen soft, non-tender EXTREMITIES: No gross deformities. There is tenderness to the left knee. Able to been knee but with pain. BACK: No flank tenderness. NEURO: AOx4. Negative chvostek sign, bilateral patellar reflexes intact. SKIN: Warm and dry PSYCH: Not anxious, is cooperative Initial Vital Signs Initial Vital Signs: Vital Signs Temperature 98.7 F 02/20/23 13:35 Pulse Rate 110 H 02/20/23 13:35 Respiratory Rate 20 02/20/23 13:35 Blood Pressure 114/67 02/20/23 13:35 Pulse Oximetry 98 02/20/23 13:35 Oxygen Delivery Method Room Air 02/20/23 13:35 <Tianna Parr DO - Last Filed: 02/21/23 04:04> Initial Vital Signs Initial Vital Signs: Vital Signs Temperature 98.7 F 02/20/23 13:35 Pulse Rate 110 H 02/20/23 13:35 Respiratory Rate 20 02/20/23 13:35 Blood Pressure 114/67 02/20/23 13:35 Pulse Oximetry 98 02/20/23 13:35 Oxygen Delivery Method Room Air 02/20/23 13:35 Procedures <Tianna Parr DO - Last Filed: 02/21/23 04:04> Joint Aspiration Joint Asp./Inject. 1: Side of body: left Joint Aspirated: knee Skin Prep: Chlorhexidine Local Anesthetic: lidocaine 1% Amount of anesthesia used (mL): 5 Needle Size Used: 18G Total fluid obtained (mL): 0 Patient Tolerated Procedure: Well and No complications Additional Comments: Unsuccessful Course <Nilay Zamarripa MD - Last Filed: 03/07/23 09:01> Orders Ordered: Discontinued Medications Acetaminophen (Acetaminophen 325 Mg Tablet) 650 mg PO Q6H PRN PRN Reason: Fever/Mild Pain (1-3) Last Admin: 02/21/23 21:56 Dose: 650 mg Documented By: Admin: 02/21/23 14:43 Dose: 650 mg Documented By: LESLIE Hydrocodone Bitart/Acetaminophen (Hydrocodone/Acet 5/325 Tablet) 1 tab PO Q4H PRN PRN Reason: Pain, Moderate (4-6) Allopurinol (Allopurinol 100 Mg Tablet) 100 mg PO DAILY [facility] Last Admin: 02/23/23 08:31 Dose: 100 mg Documented By: Admin: 02/22/23 09:30 Dose: 100 mg Documented By: LESLIE Aspirin (Aspirin Ec 81 Mg Tablet) 81 mg PO DAILY [facility] Last Admin: 02/23/23 08:31 Dose: 81 mg Documented By: Admin: 02/22/23 09:30 Dose: 81 mg Documented By: Admin: 02/21/23 18:13 Dose: 81 mg Documented By: LESLIE Atorvastatin Calcium (Atorvastatin 20 Mg Tablet) 40 mg PO BEDTIME [facility] Last Admin: 02/22/23 20:18 Dose: 40 mg Documented By: Admin: 02/21/23 20:44 Dose: 40 mg Documented By: AQUILINO Calcium Carbonate (Calcium Carbonate 500 Mg Tab) 500 mg PO PRN PRN PRN Reason: Dyspepsia Last Admin: 02/23/23 12:43 Dose: 500 mg Documented By: Admin: 02/22/23 10:51 Dose: 500 mg Documented By: Admin: 02/21/23 18:15 Dose: 500 mg Documented By: LESLIE Calcium Carbonate (Calcium Carbonate 500 Mg Tab) 500 mg PO BID [facility] Last Admin: 02/23/23 08:31 Dose: 500 mg Documented By: Admin: 02/22/23 20:18 Dose: 500 mg Documented By: Admin: 02/22/23 17:29 Dose: 500 mg Documented By: LESLIE Heparin Sodium (Porcine) (Heparin 5,000 Unit/Ml Vial) 5,000 unit SUBCUT BID [facility] Last Admin: 02/23/23 08:30 Dose: 5,000 unit Documented By: Admin: 02/22/23 20:18 Dose: 5,000 unit Documented By: Admin: 02/22/23 09:31 Dose: 5,000 unit Documented By: Admin: 02/21/23 20:44 Dose: Not Given Documented By: AQUILINO Hydromorphone HCl (Hydromorphone 1 Mg Inj) 1 mg IV NOW ONE Stop: 02/20/23 21:05 Last Admin: 02/20/23 21:11 Dose: 1 mg Documented By: ÁNGEL Hydromorphone HCl (Hydromorphone 0.5 Mg Inj) 0.5 mg IV Q3H PRN PRN Reason: Pain, Severe (7-10) Potassium Phosphate 15 mmol/ (Sodium Chloride) 255 mls @ 63.75 mls/hr IV NOW ONE Stop: 02/20/23 15:19 Last Admin: 02/20/23 15:49 Dose: Not Given Documented By: ÁNGEL Magnesium Sulfate (Magnesium Sulfate) 4 gm in 100 mls @ 150 mls/hr IV NOW ONE Stop: 02/20/23 16:03 Last Infusion: 02/20/23 16:15 Dose: Infused Documented By: ÁNGEL Co-signed By: BECCA Admin: 02/20/23 15:34 Dose: 150 mls/hr Documented By: ÁNGEL Co-signed By: SAM Vancomycin HCl (Vancomycin) 750 mg in 150 mls @ 150 mls/hr IV NOW ONE Stop: 02/21/23 01:27 Last Admin: 02/21/23 11:10 Dose: Not Given Documented By: LESLIE Piperacillin Sod/Tazobactam (Sod 3.375 gm/ Sodium Chloride) 100 mls @ 25 mls/hr IV Q8H [facility] Last Infusion: 02/21/23 12:23 Dose: Infused Documented By: Admin: 02/21/23 11:10 Dose: Not Given Documented By: Admin: 02/21/23 04:08 Dose: 25 mls/hr Documented By: AT Vancomycin HCl/Dextrose (Vancomycin) 1,500 mg in 300 mls @ 150 mls/hr IV NOW ONE Stop: 02/21/23 02:44 Last Infusion: 02/21/23 04:02 Dose: Infused Documented By: Admin: 02/21/23 02:02 Dose: 150 mls/hr Documented By: AT Vancomycin HCl (Vancomycin) 1,250 mg in 250 mls @ 250 mls/hr IV Q24H [facility] [place] Last Infusion: 02/22/23 20:30 Dose: 0 mls/hr Documented By: Admin: 02/22/23 20:18 Dose: 250 mls/hr Documented By: Infusion: 02/21/23 22:00 Dose: Infused Documented By: Admin: 02/21/23 21:00 Dose: 250 mls/hr Documented By: AQUILINO Calcium Chloride 500 mg/ (Sodium Chloride) 105 mls @ 105 mls/hr IV NOW ONE Stop: 02/21/23 07:01 Last Infusion: 02/21/23 11:02 Dose: Infused Documented By: Admin: 02/21/23 09:46 Dose: 105 mls/hr Documented By: LESLIE Magnesium Sulfate (Magnesium Sulfate) 2 gm in 50 mls @ 25 mls/hr IV NOW ONE Stop: 02/21/23 09:24 Last Infusion: 02/21/23 12:22 Dose: Infused Documented By: LESLIE Co-signed By: ELINA Admin: 02/21/23 09:22 Dose: 25 mls/hr Documented By: LESLIE Co-signed By: ELINA Piperacillin Sod/Tazobactam (Sod 3.375 gm/ Sodium Chloride) 100 mls @ 25 mls/hr IV Q8H [facility] Last Admin: 02/22/23 07:29 Dose: Not Given Documented By: Infusion: 02/22/23 02:18 Dose: Infused Documented By: Admin: 02/21/23 22:18 Dose: 25 mls/hr Documented By: Infusion: 02/21/23 16:40 Dose: Infused Documented By: Admin: 02/21/23 12:22 Dose: 25 mls/hr Documented By: LESLIE Sodium Chloride (Normal Saline 0.9%) 250 mls @ 21 mls/hr IV Q24H PRN PRN Reason: Flush Last Admin: 02/21/23 21:08 Dose: 21 mls/hr Documented By: AQUILINO Cefepime HCl 2 gm/ Sodium (Chloride) 100 mls @ 200 mls/hr IV Q12H [facility] [place] Last Admin: 02/23/23 12:28 Dose: Not Given Documented By: Admin: 02/22/23 21:10 Dose: Not Given Documented By: Infusion: 02/22/23 10:40 Dose: Infused Documented By: Admin: 02/22/23 09:31 Dose: 200 mls/hr Documented By: LESLIE Magnesium Sulfate (Magnesium Sulfate) 2 gm in 50 mls @ 25 mls/hr IV NOW ONE Stop: 02/23/23 09:32 Last Admin: 02/23/23 08:30 Dose: 25 mls/hr Documented By: LESLIE Co-signed By: MILA Levothyroxine Sodium (Levothyroxine 100 Mcg Tablet) 100 mcg PO DAILY@0600 [facility] [place] Last Admin: 02/23/23 05:58 Dose: 100 mcg Documented By: Admin: 02/22/23 05:52 Dose: 100 mcg Documented By: AQUILINO Lorazepam (Lorazepam 2 Mg/Ml Inj) 0.5 mg IV NOW ONE Stop: 02/20/23 18:06 Last Admin: 02/20/23 18:12 Dose: 0.5 mg Documented By: ÁNGEL Magnesium Oxide (Magnesium Oxide 400 Mg Tablet) 400 mg PO DAILY [facility] [place] Last Admin: 02/23/23 08:31 Dose: 400 mg Documented By: Admin: 02/22/23 17:29 Dose: 400 mg Documented By: LESLIE Metronidazole (Metronidazole 500 Mg Tablet) 500 mg PO TID [facility] [place] Last Admin: 02/23/23 08:31 Dose: 500 mg Documented By: Admin: 02/22/23 20:19 Dose: 500 mg Documented By: Admin: 02/22/23 15:48 Dose: 500 mg Documented By: Admin: 02/22/23 09:30 Dose: 500 mg Documented By: LESLIE Naloxone HCl (Naloxone 0.4 Mg/Ml Vial) 0.2 mg IV Q2MIN PRN PRN Reason: Opiate Reversal Ondansetron HCl (Ondansetron 4 Mg/2 Ml Inj) 4 mg IV Q8HR PRN PRN Reason: Nausea And Vomiting Potassium Chloride (Potassium Chloride 20 Meq Tab) 40 meq PO NOW ONE Stop: 02/21/23 09:31 Last Admin: 02/21/23 11:00 Dose: 40 meq Documented By: LESLIE Potassium Phos/Sodium Phos (Sodium,Potassium Phosphates Packet) 2 each PO NOW ONE Stop: 02/20/23 15:19 Last Admin: 02/20/23 15:49 Dose: Not Given Documented By: ÁNGEL Sodium Chloride (Sodium Chloride 0.9% Flush) 10 ml IV PRN PRN PRN Reason: Flush Sodium Chloride (Sodium Chloride 0.9% Flush) 10 ml IV BID [facility] Last Admin: 02/23/23 08:30 Dose: 10 ml Documented By: Admin: 02/22/23 20:20 Dose: 10 ml Documented By: Admin: 02/22/23 09:33 Dose: 10 ml Documented By: Admin: 02/21/23 21:08 Dose: 10 ml Documented By: AQUILINO Vancomycin HCl (Vancomycin Trough) 1 request [facility] [place] 2030 ONE Stop: 02/23/23 20:31 Vital Signs Vital signs: Vital Signs - 8 hr 02/20/23 20:00 02/20/23 20:09 02/20/23 20:09 Pulse Rate 84 87 Respiratory Rate 22 Blood Pressure 131/64 Pulse Oximetry 94 95 02/20/23 20:30 02/20/23 21:00 02/20/23 21:01 Pulse Rate 87 82 Respiratory Rate Blood Pressure 145/98 H Pulse Oximetry 94 95 02/20/23 21:01 02/20/23 21:30 Pulse Rate 82 84 Respiratory Rate 22 Blood Pressure Pulse Oximetry 95 95 <Tianna Parr DO - Last Filed: 02/21/23 04:04> Orders Ordered: Discontinued Medications Acetaminophen (Acetaminophen 325 Mg Tablet) 650 mg PO Q6H PRN PRN Reason: Fever/Mild Pain (1-3) Last Admin: 02/21/23 21:56 Dose: 650 mg Documented By: Admin: 02/21/23 14:43 Dose: 650 mg Documented By: LESLIE Hydrocodone Bitart/Acetaminophen (Hydrocodone/Acet 5/325 Tablet) 1 tab PO Q4H PRN PRN Reason: Pain, Moderate (4-6) Allopurinol (Allopurinol 100 Mg Tablet) 100 mg PO DAILY [facility] Last Admin: 02/23/23 08:31 Dose: 100 mg Documented By: Admin: 02/22/23 09:30 Dose: 100 mg Documented By: LESLIE Aspirin (Aspirin Ec 81 Mg Tablet) 81 mg PO DAILY [facility] [place] Last Admin: 02/23/23 08:31 Dose: 81 mg Documented By: Admin: 02/22/23 09:30 Dose: 81 mg Documented By: Admin: 02/21/23 18:13 Dose: 81 mg Documented By: LESLIE Atorvastatin Calcium (Atorvastatin 20 Mg Tablet) 40 mg PO BEDTIME [facility] [place] Last Admin: 02/22/23 20:18 Dose: 40 mg Documented By: Admin: 02/21/23 20:44 Dose: 40 mg Documented By: AQUILINO Calcium Carbonate (Calcium Carbonate 500 Mg Tab) 500 mg PO PRN PRN PRN Reason: Dyspepsia Last Admin: 02/23/23 12:43 Dose: 500 mg Documented By: Admin: 02/22/23 10:51 Dose: 500 mg Documented By: Admin: 02/21/23 18:15 Dose: 500 mg Documented By: LESLIE Calcium Carbonate (Calcium Carbonate 500 Mg Tab) 500 mg PO BID [facility] [place] Last Admin: 02/23/23 08:31 Dose: 500 mg Documented By: Admin: 02/22/23 20:18 Dose: 500 mg Documented By: Admin: 02/22/23 17:29 Dose: 500 mg Documented By: LESLIE Heparin Sodium (Porcine) (Heparin 5,000 Unit/Ml Vial) 5,000 unit SUBCUT BID [facility] [place] Last Admin: 02/23/23 08:30 Dose: 5,000 unit Documented By: Admin: 02/22/23 20:18 Dose: 5,000 unit Documented By: Admin: 02/22/23 09:31 Dose: 5,000 unit Documented By: Admin: 02/21/23 20:44 Dose: Not Given Documented By: AQUILINO Hydromorphone HCl (Hydromorphone 1 Mg Inj) 1 mg IV NOW ONE Stop: 02/20/23 21:05 Last Admin: 02/20/23 21:11 Dose: 1 mg Documented By: ÁNGEL Hydromorphone HCl (Hydromorphone 0.5 Mg Inj) 0.5 mg IV Q3H PRN PRN Reason: Pain, Severe (7-10) Potassium Phosphate 15 mmol/ (Sodium Chloride) 255 mls @ 63.75 mls/hr IV NOW ONE Stop: 02/20/23 15:19 Last Admin: 02/20/23 15:49 Dose: Not Given Documented By: ÁNGEL Magnesium Sulfate (Magnesium Sulfate) 4 gm in 100 mls @ 150 mls/hr IV NOW ONE Stop: 02/20/23 16:03 Last Infusion: 02/20/23 16:15 Dose: Infused Documented By: ÁNGEL Co-signed By: BECCA Admin: 02/20/23 15:34 Dose: 150 mls/hr Documented By: ÁNGEL Co-signed By: SAM Vancomycin HCl (Vancomycin) 750 mg in 150 mls @ 150 mls/hr IV NOW ONE Stop: 02/21/23 01:27 Last Admin: 02/21/23 11:10 Dose: Not Given Documented By: LESLIE Piperacillin Sod/Tazobactam (Sod 3.375 gm/ Sodium Chloride) 100 mls @ 25 mls/hr IV Q8H [facility] [place] Last Infusion: 02/21/23 12:23 Dose: Infused Documented By: Admin: 02/21/23 11:10 Dose: Not Given Documented By: Admin: 02/21/23 04:08 Dose: 25 mls/hr Documented By: AT Vancomycin HCl/Dextrose (Vancomycin) 1,500 mg in 300 mls @ 150 mls/hr IV NOW ONE Stop: 02/21/23 02:44 Last Infusion: 02/21/23 04:02 Dose: Infused Documented By: Admin: 02/21/23 02:02 Dose: 150 mls/hr Documented By: TAMERA Vancomycin HCl (Vancomycin) 1,250 mg in 250 mls @ 250 mls/hr IV Q24H [facility] [place] Last Infusion: 02/22/23 20:30 Dose: 0 mls/hr Documented By: Admin: 02/22/23 20:18 Dose: 250 mls/hr Documented By: Infusion: 02/21/23 22:00 Dose: Infused Documented By: Admin: 02/21/23 21:00 Dose: 250 mls/hr Documented By: AQUILINO Calcium Chloride 500 mg/ (Sodium Chloride) 105 mls @ 105 mls/hr IV NOW ONE Stop: 02/21/23 07:01 Last Infusion: 02/21/23 11:02 Dose: Infused Documented By: Admin: 02/21/23 09:46 Dose: 105 mls/hr Documented By: LESLIE Magnesium Sulfate (Magnesium Sulfate) 2 gm in 50 mls @ 25 mls/hr IV NOW ONE Stop: 02/21/23 09:24 Last Infusion: 02/21/23 12:22 Dose: Infused Documented By: LESLIE Co-signed By: ELINA Admin: 02/21/23 09:22 Dose: 25 mls/hr Documented By: LESLIE Co-signed By: ELINA Piperacillin Sod/Tazobactam (Sod 3.375 gm/ Sodium Chloride) 100 mls @ 25 mls/hr IV Q8H [facility] [place] Last Admin: 02/22/23 07:29 Dose: Not Given Documented By: Infusion: 02/22/23 02:18 Dose: Infused Documented By: Admin: 02/21/23 22:18 Dose: 25 mls/hr Documented By: Infusion: 02/21/23 16:40 Dose: Infused Documented By: Admin: 02/21/23 12:22 Dose: 25 mls/hr Documented By: LESLIE Sodium Chloride (Normal Saline 0.9%) 250 mls @ 21 mls/hr IV Q24H PRN PRN Reason: Flush Last Admin: 02/21/23 21:08 Dose: 21 mls/hr Documented By: AQUILINO Cefepime HCl 2 gm/ Sodium (Chloride) 100 mls @ 200 mls/hr IV Q12H [facility] [place] Last Admin: 02/23/23 12:28 Dose: Not Given Documented By: Admin: 02/22/23 21:10 Dose: Not Given Documented By: Infusion: 02/22/23 10:40 Dose: Infused Documented By: Admin: 02/22/23 09:31 Dose: 200 mls/hr Documented By: LESLIE Magnesium Sulfate (Magnesium Sulfate) 2 gm in 50 mls @ 25 mls/hr IV NOW ONE Stop: 02/23/23 09:32 Last Admin: 02/23/23 08:30 Dose: 25 mls/hr Documented By: LESLIE Co-signed By: MILA Levothyroxine Sodium (Levothyroxine 100 Mcg Tablet) 100 mcg PO DAILY@0600 [facility] [place] Last Admin: 02/23/23 05:58 Dose: 100 mcg Documented By: Admin: 02/22/23 05:52 Dose: 100 mcg Documented By: AQUILINO Lorazepam (Lorazepam 2 Mg/Ml Inj) 0.5 mg IV NOW ONE Stop: 02/20/23 18:06 Last Admin: 02/20/23 18:12 Dose: 0.5 mg Documented By: ÁNGEL Magnesium Oxide (Magnesium Oxide 400 Mg Tablet) 400 mg PO DAILY [facility] [place] Last Admin: 02/23/23 08:31 Dose: 400 mg Documented By: Admin: 02/22/23 17:29 Dose: 400 mg Documented By: LESLIE Metronidazole (Metronidazole 500 Mg Tablet) 500 mg PO TID [facility] [place] Last Admin: 02/23/23 08:31 Dose: 500 mg Documented By: Admin: 02/22/23 20:19 Dose: 500 mg Documented By: Admin: 02/22/23 15:48 Dose: 500 mg Documented By: Admin: 02/22/23 09:30 Dose: 500 mg Documented By: LESLIE Naloxone HCl (Naloxone 0.4 Mg/Ml Vial) 0.2 mg IV Q2MIN PRN PRN Reason: Opiate Reversal Ondansetron HCl (Ondansetron 4 Mg/2 Ml Inj) 4 mg IV Q8HR PRN PRN Reason: Nausea And Vomiting Potassium Chloride (Potassium Chloride 20 Meq Tab) 40 meq PO NOW ONE Stop: 02/21/23 09:31 Last Admin: 02/21/23 11:00 Dose: 40 meq Documented By: LESLIE Potassium Phos/Sodium Phos (Sodium,Potassium Phosphates Packet) 2 each PO NOW ONE Stop: 02/20/23 15:19 Last Admin: 02/20/23 15:49 Dose: Not Given Documented By: ÁNGEL Sodium Chloride (Sodium Chloride 0.9% Flush) 10 ml IV PRN PRN PRN Reason: Flush Sodium Chloride (Sodium Chloride 0.9% Flush) 10 ml IV BID [facility] [place] Last Admin: 09/24/23 08:30 Dose: 10 ml Documented By: Admin: 02/22/23 20:20 Dose: 10 ml Documented By: Admin: 02/22/23 09:33 Dose: 10 ml Documented By: Admin: 02/21/23 21:08 Dose: 10 ml Documented By: AQUILINO Vancomycin HCl (Vancomycin Trough) 1 request [facility] [place] 2030 ONE Stop: 02/23/23 20:31 Vital Signs Vital signs: Vital Signs - 8 hr 02/20/23 20:00 02/20/23 20:09 02/20/23 20:09 Pulse Rate 84 87 Respiratory Rate 22 Blood Pressure 131/64 Pulse Oximetry 94 95 02/20/23 20:30 02/20/23 21:00 02/20/23 21:01 Pulse Rate 87 82 Respiratory Rate Blood Pressure 145/98 H Pulse Oximetry 94 95 02/20/23 21:01 02/20/23 21:30 Pulse Rate 82 84 Respiratory Rate 22 Blood Pressure Pulse Oximetry 95 95 MDM - Weakness <Nilay Zamarripa MD - Last Filed: 03/07/23 09:01> Lab Data 02/23/23 06:15 02/23/23 06:15 Labs: Lab Results 02/20/23 02/20/23 02/20/23 Range/Units 14:11 14:20 15:24 WBC 12.1 H (4.5-11.0) X10^3/uL RBC 4.22 L (4.5-5.9) X10^6/uL Hgb 11.7 L (13.5-17.5) g/dL Hct 35.0 L (41-53) % MCV 83.0 (80-100) fL MCH 27.8 (26-34) PG MCHC 33.4 (30-36) % RDW 17.5 H (11.6-14.8) % Plt Count 313 (150-400) X10^3/uL Neut % (Auto) 86.1 H (50-75) % Lymph % (Auto) 5.8 L (25-40) % [place] % (Auto) 7.5 (3-14) % Eos % (Auto) 0.3 L (2-4) % Baso % (Auto) 0.3 (0-2) % Neut # (Auto) 13690 H (9270-6101) /uL Lymph # (Auto) 700 L (3291-0447) /uL [place] # (Auto) 900 (0-900) /uL Eos # (Auto) 0 (0-450) /uL Baso # (Auto) 0 (0-100) /uL ESR (0-15) MM/HR Sodium 138 (137-145) mmol/L Potassium 3.5 (3.4-5.1) mmol/L Chloride 102 (98-107) mmol/L Carbon Dioxide 25 (22-32) mmol/L BUN 19 (9-20) mg/dL Creatinine 1.42 H (0.66-1.25) mg/dL Estimated GFR 49 L (>60) mL/min BUN/Creatinine Ratio 13.4 (6-22) Glucose 95 (80-110) mg/dL Calcium 6.5 L (8.4-10.2) mg/dL Phosphorus 3.6 D (2.3-3.7) mg/dL Magnesium 0.4 L* (1.6-2.3) mg/dL Total Bilirubin 1.3 (0.2-1.3) mg/dL AST 34 (17-59) IU/L ALT 37 (<50) IU/L Alkaline Phosphatase 49 (38-126) U/L C-Reactive Protein (<1.0) mg/dL Total Protein 7.0 (6.3-8.2) g/dL Albumin 3.7 (3.5-5.0) g/dL Globulin 3.3 (1.7-4.1) g/dL Albumin/Globulin Ratio 1.1 (1.0-2.8) 25-OH Vitamin D Total (30.0-100.0) ng/mL TSH 0.77 (0.47-4.68) uIU/mL PTH Intact 32 (15-65) pg/mL Calcium (PTH Intact) 6.3 PTH Intact Intraop Comment (.) Rheumatoid Factor (<12.0) IU/mL Anti-Nuclear Antibody (.) 02/20/23 Range/Units 18:15 WBC (4.5-11.0) X10^3/uL RBC (4.5-5.9) X10^6/uL Hgb (13.5-17.5) g/dL Hct (41-53) % MCV (80-100) fL MCH (26-34) PG MCHC (30-36) % RDW (11.6-14.8) % Plt Count (150-400) X10^3/uL Neut % (Auto) (50-75) % Lymph % (Auto) (25-40) % [place] % (Auto) (3-14) % Eos % (Auto) (2-4) % Baso % (Auto) (0-2) % Neut # (Auto) (7218-7526) /uL Lymph # (Auto) (9070-4238) /uL [place] # (Auto) (0-900) /uL Eos # (Auto) (0-450) /uL Baso # (Auto) (0-100) /uL ESR 71 H (0-15) MM/HR Sodium (137-145) mmol/L Potassium (3.4-5.1) mmol/L Chloride (98-107) mmol/L Carbon Dioxide (22-32) mmol/L BUN (9-20) mg/dL Creatinine (0.66-1.25) mg/dL Estimated GFR (>60) mL/min BUN/Creatinine Ratio (6-22) Glucose (80-110) mg/dL Calcium (8.4-10.2) mg/dL Phosphorus (2.3-3.7) mg/dL Magnesium (1.6-2.3) mg/dL Total Bilirubin (0.2-1.3) mg/dL AST (17-59) IU/L ALT (<50) IU/L Alkaline Phosphatase (38-126) U/L C-Reactive Protein 36.9 H (<1.0) mg/dL Total Protein (6.3-8.2) g/dL Albumin (3.5-5.0) g/dL Globulin (1.7-4.1) g/dL Albumin/Globulin Ratio (1.0-2.8) 25-OH Vitamin D Total 47.1 (30.0-100.0) ng/mL TSH (0.47-4.68) uIU/mL PTH Intact (15-65) pg/mL Calcium (PTH Intact) PTH Intact Intraop (.) Rheumatoid Factor 15.4 H (<12.0) IU/mL Anti-Nuclear Antibody Negative (.) MDM Narrative Medical decision making narrative: Patient recently seen here 2 days ago for generalized weakness left knee pain low calcium low phosphorus. Patient seen by primary care today, I spoke with primary care provider Dr. Arrieta, would like patient to be seen in the emergency department again for profound weakness. Two weeks ago patient was able to walk unassisted but now is in a wheelchair. Calcium replacement was done 2 days ago here. Patient has not improved. Denies any headache chest pain back pain abdominal pain. Patient has stage 3 kidney disease. 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 Sees Dr. Rodriguez with Urology. Does not have endocrinology services.. Patient has chronic left knee pain. Denies any changes in bowel habits mood swings abdominal pain After history and exam CBC CMP magnesium ionized calcium TSH PTH EKG equipment monitor phototypesetting MDM CC: Weakness Complicating co-morbidities: History of thyroid disease Data collected from: Patient's son and Medical records reviewed: Primary care office visit today as well as ER visit here 2 days ago Differential considered: Includes but not limited to hypocalcemia hypoparathyroidism hypothyroidism Exam documented above, pertinent findings include: WBC 12.1 hemoglobin 11.7 sodium 138 potassium 3.5 BUN 19 creatinine 1.42 GFR 49 glucose 95 calcium 6.5 phosphorus 3.6 magnesium 0.4 TSH 0.77 Lab Test results independently reviewed as above. Pertinent findings: Independently reviewed EKG normal sinus rhythm normal EKG rate 89 Imaging studies independently reviewed: Consultations: Spoke with hospitalist Dr. Bolden, 5:30 p.m.. He is reviewing chart for admission. 5:[address] bolden, hospitalist, at this time he will follow in consult until further testing to be done. He would like DVT study MRI lumbar spine x-rays left foot left ankle left hip CRP ESR ANNETTE and rheumatoid factor. Treatments: Magnesium Re-evaluations: Reviewed results with patient and family. They do agree for admission. Discussion: Appropriate for admission for magnesium replacement and for evaluation for generalized weakness Diagnosis: Hypomagnesemia 6:00 p.m.. Dallin: Sign out to Dr Parr, many labs and tests have been ordered due to hospitalist needing more information. <Tianna Parr, DO - Last Filed: 02/21/23 04:04> Lab Data Labs: Lab Results 02/20/23 02/20/23 02/20/23 Range/Units 14:11 14:20 15:24 WBC 12.1 H (4.5-11.0) X10^3/uL RBC 4.22 L (4.5-5.9) X10^6/uL Hgb 11.7 L (13.5-17.5) g/dL Hct 35.0 L (41-53) % MCV 83.0 (80-100) fL MCH 27.8 (26-34) PG MCHC 33.4 (30-36) % RDW 17.5 H (11.6-14.8) % Plt Count 313 (150-400) X10^3/uL Neut % (Auto) 86.1 H (50-75) % Lymph % (Auto) 5.8 L (25-40) % [place] % (Auto) 7.5 (3-14) % Eos % (Auto) 0.3 L (2-4) % Baso % (Auto) 0.3 (0-2) % Neut # (Auto) 49906 H (7060-7357) /uL Lymph # (Auto) 700 L (6412-0267) /uL [place] # (Auto) 900 (0-900) /uL Eos # (Auto) 0 (0-450) /uL Baso # (Auto) 0 (0-100) /uL ESR (0-15) MM/HR Sodium 138 (137-145) mmol/L Potassium 3.5 (3.4-5.1) mmol/L Chloride 102 (98-107) mmol/L Carbon Dioxide 25 (22-32) mmol/L BUN 19 (9-20) mg/dL Creatinine 1.42 H (0.66-1.25) mg/dL Estimated GFR 49 L (>60) mL/min BUN/Creatinine Ratio 13.4 (6-22) Glucose 95 (80-110) mg/dL Calcium 6.5 L (8.4-10.2) mg/dL Phosphorus 3.6 D (2.3-3.7) mg/dL Magnesium 0.4 L* (1.6-2.3) mg/dL Total Bilirubin 1.3 (0.2-1.3) mg/dL AST 34 (17-59) IU/L ALT 37 (<50) IU/L Alkaline Phosphatase 49 (38-126) U/L C-Reactive Protein (<1.0) mg/dL Total Protein 7.0 (6.3-8.2) g/dL Albumin 3.7 (3.5-5.0) g/dL Globulin 3.3 (1.7-4.1) g/dL Albumin/Globulin Ratio 1.1 (1.0-2.8) 25-OH Vitamin D Total (30.0-100.0) ng/mL TSH 0.77 (0.47-4.68) uIU/mL PTH Intact 32 (15-65) pg/mL Calcium (PTH Intact) 6.3 PTH Intact Intraop Comment (.) Rheumatoid Factor (<12.0) IU/mL Anti-Nuclear Antibody (.) 02/20/23 Range/Units 18:15 WBC (4.5-11.0) X10^3/uL RBC (4.5-5.9) X10^6/uL Hgb (13.5-17.5) g/dL Hct (41-53) % MCV (80-100) fL MCH (26-34) PG MCHC (30-36) % RDW (11.6-14.8) % Plt Count (150-400) X10^3/uL Neut % (Auto) (50-75) % Lymph % (Auto) (25-40) % [place] % (Auto) (3-14) % Eos % (Auto) (2-4) % Baso % (Auto) (0-2) % Neut # (Auto) (9843-6222) /uL Lymph # (Auto) (3847-2162) /uL [place] # (Auto) (0-900) /uL Eos # (Auto) (0-450) /uL Baso # (Auto) (0-100) /uL ESR 71 H (0-15) MM/HR Sodium (137-145) mmol/L Potassium (3.4-5.1) mmol/L Chloride (98-107) mmol/L Carbon Dioxide (22-32) mmol/L BUN (9-20) mg/dL Creatinine (0.66-1.25) mg/dL Estimated GFR (>60) mL/min BUN/Creatinine Ratio (6-22) Glucose (80-110) mg/dL Calcium (8.4-10.2) mg/dL Phosphorus (2.3-3.7) mg/dL Magnesium (1.6-2.3) mg/dL Total Bilirubin (0.2-1.3) mg/dL AST (17-59) IU/L ALT (<50) IU/L Alkaline Phosphatase (38-126) U/L C-Reactive Protein 36.9 H (<1.0) mg/dL Total Protein (6.3-8.2) g/dL Albumin (3.5-5.0) g/dL Globulin (1.7-4.1) g/dL Albumin/Globulin Ratio (1.0-2.8) 25-OH Vitamin D Total 47.1 (30.0-100.0) ng/mL TSH (0.47-4.68) uIU/mL PTH Intact (15-65) pg/mL Calcium (PTH Intact) PTH Intact Intraop (.) Rheumatoid Factor 15.4 H (<12.0) IU/mL Anti-Nuclear Antibody Negative (.) Imaging Data Extremity x-ray #1: Radiologist Impression: PROCEDURE:? XR ANKLE LT MIN 3V ? INDICATIONS:? Pain ? TECHNIQUE:? 4 views of the ankle were acquired.? ? COMPARISON:? [facility], ANKLE 3 VIEWS RIGHT, 02/22/2017, 13:30. ? FINDINGS:? ? Bones:? No fractures or dislocations.? Well corticated osseous fragment distal to the medial malleolus, likely sequela of prior traumatic injury.? Ankle mortise is normally aligned.? No suspicious bony lesions.? Plantar calcaneal enthesophyte.? ? Soft tissues:? No tibiotalar joint effusion.? Achilles tendon appears normal.? ? ? IMPRESSION:? ? No acute osseous abnormality. If pain persists with conservative management, consider repeat x-ray in 10-14 days or cross-sectional imaging. ? ? ? Dictated by: Booker Card M.D. on 02/20/2023 at 19:35 ? ? Extremity x-ray #2: Radiologist Impression: PROCEDURE:? XR FOOT LT 2V ? INDICATIONS:? Pain ? TECHNIQUE:? 2 views of the foot were acquired.? ? COMPARISON:? [facility], FOOT 3V RIGHT, 09/29/2007, 11:18. ? FINDINGS:? ? Bones:? No fractures or dislocations.? No suspicious bony lesions.? Limited evaluation the phalanges secondary to flexion/extension.? Plantar calcaneal spurring.? Mild midfoot degenerative changes. ? Soft tissues:? No tibiotalar joint effusion.? Achilles tendon appears normal.? ? ? IMPRESSION:? Limited evaluation of the digits secondary to flexion/extension. No acute osseous abnormality. If pain persists with conservative management, consider repeat x-ray in 10-14 days or cross-sectional imaging. ? ? Dictated by: Booker Card M.D. on 02/20/2023 at 19:37 ? ? Approved by: Booker Card M.D. on 02/20/2023 at 19:38? Extremity x-ray #3: Radiologist Impression: PROCEDURE:? XR HIP W PEL IF DONE LT 2V ? INDICATIONS:? Pain ? TECHNIQUE:? AP pelvis with lateral view(s) of the left hip(s).? ? COMPARISON:? None. ? FINDINGS:? ? Bones:? No fractures or dislocations.? Mild degenerative changes of the bilateral hip joints.? Pelvic ring appears intact.? No suspicious bony lesions.? Degenerative changes of the visualized lower lumbar spine and pubic symphysis. ? Soft tissues:? The visualized bowel gas pattern is normal.? No suspicious soft tissue calcifications.? ? ? IMPRESSION:? No acute fracture or dislocation.? Mild degenerative changes of the bilateral hips. ? ? ? Dictated by: Booker Card M.D. on 02/20/2023 at 19:39 ?? MR lumbar: Radiologist Impression: PROCEDURE:? MR LUMBAR SPINE WO CON ? INDICATIONS:? Leg numbness left side ? TECHNIQUE:? Noncontrast sagittal T1 spin echo and T2 fast echo, sagittal STIR, and T2 fast spin echo through the lumbar spine.? In cases with scoliosis, additional coronal T2 fast spin echo may be performed.? ? COMPARISON:? None. ? FINDINGS:? Image quality:? Excellent.? ? Alignment and Curvature:? There is normal bony alignment.? ? Bone Marrow:? Mild degenerative endplate changes.? Marrow is of normal overall signal.? No acute vertebral body compression fractures.? ? Spinal Cord:? Conus medullaris terminates at the L1-L2 level.? Visualized cord demonstrates normal signal and size.? ? Paraspinous Soft Tissues:? No paravertebral masses.? ? T12-L1:? No central canal or neural foraminal stenosis. ? L1-L2:? Disc desiccation.? Mild facet arthropathy. No central canal or neural foraminal stenosis. ? L2-L3:? Disc desiccation height loss.? Minimal posterior disc bulge.? Facet arthropathy and thickening of the ligamentum flavum. No central canal or neural foraminal stenosis. ? L3-L4:? Disc desiccation and minimal posterior disc bulge.? Facet arthropathy. No central canal or neural foraminal stenosis. ? L4-L5:? Disc desiccation height loss with mild posterior disc bulge.? Facet arthropathy and thickening of the ligamentum flavum.? Mild epidural lipomatosis.? Mild central canal stenosis.? Narrowing of the lateral recesses with abutment of the descending L5 nerve roots.? Moderate left neural foraminal stenosis. ? L5-S1:? Disc desiccation.? Small posterior disc bulge.? Facet arthropathy.? No central canal stenosis.? Mild bilateral neural foraminal stenosis. ? ? IMPRESSION:? ? 1. Degenerative changes of the lumbar spine without high-grade stenosis. 2. Mild central canal stenosis at L4-5.? Moderate left neural foraminal stenosis at L4-5. ? ? ? Dictated by: Booker Card M.D. on 02/20/2023 at 19:31 ? US - DVT: Radiologist Impression: PROCEDURE:? [facility] VENOUS LOW EXTREM LT ? INDICATIONS:? PAIN AND SWELLING IN LEFT LEG ? TECHNIQUE:? Real-time imaging, as well as color and pulse Doppler interrogation, were performed of the lower extremity deep veins from the inguinal ligament to the popliteal fossa, with documentation of the visualized calf veins.? ? COMPARISON:? [facility], [facility] VENOUS LOW EXTREM LT, 10/31/2018, 19:56. ? FINDINGS:? The common femoral, femoral, popliteal, and the visualized calf veins are normally compressible, and free of intraluminal thrombus.? Color and pulse Doppler demonstrate normal phasic intraluminal flow.? There is normal augmentation response to distal compression maneuver.? There is limited evaluation of the popliteal vein, secondary to his severe pain and immobility. ? ? IMPRESSION:? No findings of lower extremity deep venous thrombosis. ? ? Dictated by: Beto Silva M.D. on 02/20/2023 at 17:24? [facility] Narrative Medical decision making narrative: Patient recently seen here 2 days ago for generalized weakness left knee pain low calcium low phosphorus. Patient seen by primary care today, I spoke with primary care provider Dr. Arrieta, would like patient to be seen in the emergency department again for profound weakness. Two weeks ago patient was able to walk unassisted but now is in a wheelchair. Calcium replacement was done 2 days ago here. Patient has not improved. Denies any headache chest pain back pain abdominal pain. Patient has stage 3 kidney disease. 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 Sees Dr. Rodriguez with Urology. Does not have endocrinology services.. Patient has chronic left knee pain. Denies any changes in bowel habits mood swings abdominal pain After history and exam CBC CMP magnesium ionized calcium TSH PTH EKG equipment monitor phototypesetting MDM CC: Weakness Complicating co-morbidities: History of thyroid disease Data collected from: Patient's son and Medical records reviewed: Primary care office visit today as well as ER visit here 2 days ago Differential considered: Includes but not limited to hypocalcemia hypoparathyroidism hypothyroidism Exam documented above, pertinent findings include: WBC 12.1 hemoglobin 11.7 sodium 138 potassium 3.5 BUN 19 creatinine 1.42 GFR 49 glucose 95 calcium 6.5 phosphorus 3.6 magnesium 0.4 TSH 0.77 Lab Test results independently reviewed as above. Pertinent findings: Independently reviewed EKG normal sinus rhythm normal EKG rate 89 Imaging studies independently reviewed: Consultations: Spoke with hospitalist Dr. Bolden, 5:30 p.m.. He is reviewing chart for admission. 5:[address] bolden, hospitalist, at this time he will follow in consult until further testing to be done. He would like DVT study MRI lumbar spine x-rays left foot left ankle left hip CRP ESR ANNETTE and rheumatoid factor. Treatments: Magnesium Re-evaluations: Reviewed results with patient and family. They do agree for admission. Discussion: Appropriate for admission for magnesium replacement and for evaluation for generalized weakness Diagnosis: Hypomagnesemia 6:00 p.m.. Dallin: Sign out to Dr Parr, many labs and tests have been ordered due to hospitalist needing more information. Dr. Parr-received sign-out from Dr. Parr. I have actually spoken with Dr. Amin myself to be clear on plan. Waiting for imaging to be complete including MRI and lower extremity x-rays along with DVT rule out. Patient may need to be transferred based on these results. However negative agrees that patient likely needs to be admitted. I have reviewed imaging myself no abnormality found or cause for ongoing left knee pain. He is afebrile he has no leukocytosis. Joint itself is actually minimally swollen almost looks better than it did a couple days ago when I saw him. I called and spoke with hospitalist Dr. Myles. He request arthrocentesis. I attempted there is minimal fluid at this point and attempt was unsuccessful. He accepts patient to observation Discharge Plan Departure Patient Disposition: Admitted as Observation Clinical Impression: Hypomagnesemia Admit Date/Time: 02/20/23 21:43 Admit Provider: Ok Myles
[2023-02-20 14:32] LABS: Add Manual Diff / Slide Review NO; Basophils Absolute Auto 0 /uL (0-100); Basophils Percent Auto 0.3 % (0-2); Eosinophils Absolute Auto 0 /uL (0-450); Eosinophils Percent Auto 0.3 % (2-4); Hemoglobin 11.7 g/dL (13.5-17.5); Lymphocytes Absolute Auto 700 /uL (1100-4500); Lymphocytes Percent Auto 5.8 % (25-40); Mean Corpuscular HGB Conc 33.4 % (30-36); Mean Corpuscular Hemoglobin 27.8 PG (26-34); Monocytes Absolute Auto 900 /uL (0-900); Monocytes Percent Auto 7.5 % (3-14); Neutrophils Absolute Auto 10400 /uL (1500-7000); Neutrophils Percent Auto 86.1 % (50-75); Platelet Count 313 X10^3/uL (150-400); Red Blood Cell Count 4.22 X10^6/uL (4.5-5.9); Red Cell Distribution Width 17.5 % (11.6-14.8); White Blood Cell Count 12.1 X10^3/uL (4.5-11.0)
[2023-02-20 14:49] LABS: Alanine Aminotransferase 37 IU/L (<50); Albumin 3.7 g/dL (3.5-5.0); Albumin Globulin Ratio 1.1 (1.0-2.8); Alkaline Phosphatase 49 U/L (38-126); Aspartate Aminotransferase 34 IU/L (17-59); BUN Creatinine Ratio 13.4 (6-22); Bilirubin Total 1.3 mg/dL (0.2-1.3); Blood Urea Nitrogen 19 mg/dL (9-20); Calcium 6.5 mg/dL (8.4-10.2); Carbon Dioxide 25 mmol/L (22-32); Chloride 102 mmol/L (98-107); Estimated Glomerular Filt Rate 49 mL/min (>60); Globulin 3.3 g/dL (1.7-4.1); Glucose 95 mg/dL (80-110); HEMOLYSIS 20 (0-50); Potassium 3.5 mmol/L (3.4-5.1); Sodium 138 mmol/L (137-145)
[2023-02-20 15:00] LABS: Magnesium 0.4 mg/dL (1.6-2.3)
[2023-02-20 15:25] LABS: TSH w/ Reflex to FT4 0.77 uIU/mL (0.47-4.68)
[2023-02-20] MEDS: MAGNESIUM SULFATE 4 GM/100 ML PIGGYBACK IV (15:34)
--- NOTE | 2023-02-20 15:56 | PT.IIE ---
Surgical History (Last Reviewed 02/20/23 @ 14:13 by Nilay Zamarripa MD) Hx of appendectomy Hx of cholecystectomy Medical History (Last Reviewed 02/20/23 @ 14:13 by Nilay Zamarripa MD) Abnormal prostate by palpation Acquired hypothyroidism Bladder outlet obstruction BPH w urinary obs/LUTS Elevated PSA Erectile dysfunction Essential hypertension History of arthritis Mixed hyperlipidemia Overweight Stage 3b chronic kidney disease (CKD) Physical Therapy Inpatient Evaluation/Re-Eval M1 PT/OT-IP Prior Functional Status Start: 02/20/23 15:04 Freq: Status: Active Protocol: Document 02/20/23 15:43 [facility] (Rec: 02/20/23 15:56 [facility] [id number]) Medical Review Prior Functional Status Medical History Reviewed Yes Diet/Fluid Consistency Regular Communication A and O x 4 Mobility and Gait independent, walking 1 mile without assistive device Activities of Daily Living and IADL's indep Social History Household Members spouse Number of Floors (Floors) One Floor Number of Stairs To Enter/Railing? ramp Home Environment High Toilet Home Equipment Four Wheel Walker,Raised Toilet Seat Without Armrests, Grab Bars Near Toilet,Grab Bars In Shower Additional Social History Comment retired M2 PT-IP Current Condition Start: 02/20/23 15:04 Freq: Status: Active Protocol: Document 02/20/23 15:43 [facility] (Rec: 02/20/23 15:56 [facility] [id number]) Physical Therapy Current Condition Current Condition Evaluation Date 02/20/23 Treatment Diagnosis weakness, left knee pain Onset Date 02/20/23 M3 PT-IP Subjective Start: 02/20/23 15:04 Freq: Status: Active Protocol: Document 02/20/23 15:43 [facility] (Rec: 02/20/23 15:56 [facility] [id number]) Subjective Physical Therapy Visit Type Type Initial Evaluation Visit Start Time 15:18 Visit Stop Time 15:38 Total Visit Minutes 30 Notes and son present for evaluation Physical Therapy Visit Comments Patient Comments Patient states he has a long history of gout. Has had right TKA, thinks he needs to have left TKA Patient Goals go home Therapy Pain Assessment Pain When Pain Assessed During Mobility Pain Present Pain Present Pain Reported Location Left knee Intensity 8 Scale Used Numeric (0 - 10) M4 PT-IP Mobility and Gait Start: 02/20/23 15:04 Freq: Status: Active Protocol: Document 02/20/23 15:43 [facility] (Rec: 02/20/23 15:56 [facility] [id number]) PT-Bed Mobility Assessment Supine to Sit Supine to Sit Standby Assistance Sit to Supine Sit to Supine Standby Assistance Scooting Scooting to Edge of Bed Standby Assistance Scooting Up and Down in Bed Standby Assistance PT-Transfer Assessment Sit to and From Stand Sit to and from Stand Moderate Assistance Equipment Transfer Assistive Device Gait Belt,Front Wheeled Walker Transfers Transfer Destination Chair Transfer Technique max assist Transfer Ability Level of Assist Maximum Assistance Comments Mobility Comments Patient transferred sit to stand with mod+ assist but unable to achieve full stand; leaning back against bed. Unable to safely move away from the bed without max assist. Patient exhibited shakiness and inability to move or tolerate weight- bearing. Gait Assessment Gait Distance (Feet) 0 Able to Maintain Weight Bearing Status No During Gait Comments Gait Comments unable to ambulate Stair Climbing Assessment Comments Stair Climbing Comments unable PT-Balance Assessment Sitting Balance and Reactions Static Sitting Balance Ability Good Dynamic Sitting Balance Ability Good Standing Balance and Reactions Static Standing Balance Ability Poor Dynamic Standing Balance Ability Poor M5 PT-IP Objective Assessments Start: 02/20/23 15:04 Freq: Status: Active Protocol: Document 02/20/23 15:43 [facility] (Rec: 02/20/23 15:56 [facility] [id number]) Orientation Orientation/Cognition Level of Alertness Alert Orientation Name,Age,Situation Safety Awareness Understands Safety Issues Gross Range of Motion Upper Extremity ROM Assessment Within Functional Limits Lower Extremity ROM Assessment Left Impaired Impairments due to pain Strength Upper Extremity Strength Assessment Within Functional Limits Comments Strength Comments right LE WNL hip and knee. Ankle 3-/5 with moderate swelling Left LE; unable to lift leg in sitting or supine, unable to move to side 0/5. Knee 3-/5 due to pain, ankle 3-/5. M7 PT-IP Assessment and Plan Start: 02/20/23 15:04 Freq: Status: Active Protocol: Document 02/20/23 15:43 [facility] (Rec: 02/20/23 15:56 [facility] [id number]) PT Summary Assessment and Plan Potential Rehabilitation Potential Fair Status of Condition at Evaluation Evolving Summary Impairments Pain,ROM,Strength,Transfers, Gait,Activity Tolerance Assessment Summary Patient seen for PT evaluation due to c/o severe pain left knee as well as brittanie feet right greater than left causing inability to stand or walk. Son and present and report 1 week ago patient able to walk 1 mile without any assistance. Today he was unable to walk at all, required mod+ assist to stand but did not achieve full stand due to pain with weight- bearing. Unable to ambulate. Transfer to chair requires max assist. Patient shaky and tremulus when in partial stand. At this time he appears unsafe to go home due to severe mobility limitations and pain. Moderate swelling left knee and brittanie feet right greater than left with right ankle and left knee warm to the touch. If he remains in hospital would recommend PT. Goals Bed Mobility Goal Independent Transfer Goal Independent Gait Goal Independent Gait Distance 50 Days to Meet Goals 7 Frequency of Treatment Frequency Of Treatment Once a Day Treatment Plan Physical Therapy Treatment Plan Bed Mobility Training,Transfer Training,Gait Training, Therapeutic Exercise,Discharge Planning Weight Bearing Status Weight Bearing Status Full Weight Bearing Recommendations To Nursing Amount of Assist Needed 2 Person Assist Discharge Recommendations PT Discharge Recommendations SNF Rehab Transportation Needs at Discharge Wheelchair/Cabulance
[2023-02-20 16:48] LABS: Phosphorous 3.6 mg/dL (2.3-3.7)
--- NOTE | 2023-02-20 17:52 | P.CONS_ITS ---
History of Present Illness Consult details Date Patient Seen: 02/20/23 Time Patient Seen: 17:52 Chief complaint: weakness/calcium low [place] Refer T-0 Reason for consult: weakness Requesting provider: Nilay Zamarripa Narrative: This is an 82 year old male with PMH of gout, BPH, HTN, HLD, CKD stage III who presents with worsening weakness over the past 3 weeks. He has been on and off of steroids, with 3 rounds recently for left knee symptoms consistent with gout. His swelling has gone away with each round of therapy. He was seen in the ER two days ago with L knee pain, his calcium at that time was also noted to be 5.6 PTH was 18. He has no history of thyroid surgery. He has no difficulty with movement of his R leg, but has fairly marked weakness of his left leg. He has pain in his knee, but also his left ankle with swelling and reported numbness on the bottom of his left foot. He denies back pain, urinary or stool incontinence. In the ER, labs notable for calcium of 6.5 (albumin 3.7), corrected to 6.7. Phos of 3.6 (normal) and Mg 0.4. Ionized calcium is pending. PTH was resent. Creatinine was 1.42 consistent with prior values. He has a mild leukocytosis and mild, but chronic and stable anemia with Hg 11.7. He was seen by PT whom recommended SNF in the ER, but with unilateral weakness on the L it is not clear if his mobility and weakness is due to his electrolyte abnormalities at this time. Please see below for further evaluation recommendations. Meds Home Medications and Allergies Home Medications Medication Instructions Recorded Confirmed Type colchicine (gout) 0.6 mg tablet 0.6 mg PO BID 07/26/21 02/20/23 History lisinopril 20 mg tablet 20 mg PO DAILY #90 tabs 08/01/22 02/20/23 Rx simvastatin 40 mg tablet (Zocor) 40 mg PO HS #90 tabs 10/14/22 02/20/23 Rx meclizine 25 mg chewable tablet 25 mg PO QID #20 tabs 11/14/22 02/20/23 Rx prednisone 10 mg tablet See Rx Instructions .Route 12/02/22 02/20/23 Rx .COMPLEX #20 tabs allopurinol 100 mg tablet 100 mg PO DAILY #90 tabs 12/19/22 02/20/23 Rx rabeprazole 20 mg tablet,delayed 20 mg PO DAILY #90 tabs 01/16/23 02/20/23 Rx release (AcipHex) levothyroxine 100 mcg tablet 100 mcg PO DAILY #90 tabs 02/17/23 02/20/23 Rx hydrocodone 5 mg-acetaminophen 325 1 tab PO Q6H PRN pain #20 tabs 02/18/23 02/20/23 Rx mg tablet Allergies Allergy/AdvReac Type Severity Reaction Status Date / Time No Known Drug Allergies Allergy Verified 02/20/23 12:27 Review of Systems Review of Systems Narrative: All other systems reviewed with the patient and are negative unless otherwise stated. Exam Vital Signs (past 8 hours): - 02/20/23 13:35 02/20/23 14:13 02/20/23 14:30 Temperature 98.7 F Pulse Rate 110 H 91 H Respiratory Rate 20 20 Blood Pressure 114/67 133/66 Pulse Oximetry 98 97 Oxygen Delivery Method Room Air 02/20/23 14:30 02/20/23 15:00 02/20/23 15:00 Temperature Pulse Rate 87 84 Respiratory Rate 22 20 Blood Pressure 125/66 Pulse Oximetry 96 97 Oxygen Delivery Method 02/20/23 15:30 02/20/23 16:00 02/20/23 16:03 Temperature Pulse Rate 88 82 82 Respiratory Rate 22 24 Blood Pressure Pulse Oximetry 97 95 96 Oxygen Delivery Method 02/20/23 16:03 02/20/23 16:30 02/20/23 16:30 Temperature Pulse Rate 90 Respiratory Rate 20 Blood Pressure 124/60 141/66 H Pulse Oximetry 96 Oxygen Delivery Method 02/20/23 17:00 02/20/23 17:00 Temperature Pulse Rate 90 Respiratory Rate 24 Blood Pressure 146/65 H Pulse Oximetry 96 Oxygen Delivery Method Oxygen Delivery Method Room Air Narrative Exam Narrative: General:? Patient is well developed and well nourished, in no distress at this time. HEENT:? Normocephalic, atraumatic, L glass eye, symmetric face (except for L eye) and smile. Neck: supple and symmetric, trachea is midline, no cervical adenopathy. Chest:? Normal AP diameter and contour without kyphoscoliosis, no tachypnea, equal chest rise bilaterally. Lungs:? CTA b/l no wheezing rhonchi or rales. Cardio:?RRR no m/r/g. Abdomen: S NT ND. Musculoskeletal:? Muscle tone is equal within normal limits, no deformity. Left leg strength diminshed Extremities: bilateral leg swelling, L >R. L knee effusion without tenderness. L ankle warm with effusion and tenderness. Skin:? Pale,? Warm to touch,dry and intact without rashes, ulcerations or petechiae.? Neuro:? Alert and orientated x3,?slight decrease in sensation to bottom of left foot to light touch, minimal movement of left leg. Left upper extremity normal. Psych:? Patient has a well-kept appearance, appropriate affect, mental status attitude thought context and judgment are appropriate for age. Objective ECG Impression: normal sinus rhythm with no abnormal intervals. Imaging L KNEE XR: Radiologist's impression: IMPRESSION:? Prominent effusion. No visualized acute fracture or dislocation. However, if clinical concern and/or pain persist, short interval imaging followup in 7-10 days is recommended, as occult injury cannot be definitively excluded. Labs 02/20/23 14:20 02/20/23 14:20 Labs: Laboratory Results - last 24 hr 02/20/23 02/20/23 02/20/23 14:20 14:20 14:20 WBC 12.1 H RBC 4.22 L Hgb 11.7 L Hct 35.0 L MCV 83.0 MCH 27.8 MCHC 33.4 RDW 17.5 H Plt Count 313 Neut % (Auto) 86.1 H Lymph % (Auto) 5.8 L [place] % (Auto) 7.5 Eos % (Auto) 0.3 L Baso % (Auto) 0.3 Neut # (Auto) 67322 H Lymph # (Auto) 700 L [place] # (Auto) 900 Eos # (Auto) 0 Baso # (Auto) 0 Sodium 138 Potassium 3.5 Chloride 102 Carbon Dioxide 25 BUN 19 Creatinine 1.42 H Estimated GFR 49 L BUN/Creatinine Ratio 13.4 Glucose 95 Calcium 6.5 L Phosphorus Magnesium 0.4 L* Total Bilirubin 1.3 AST 34 ALT 37 Alkaline Phosphatase 49 Total Protein 7.0 Albumin 3.7 Globulin 3.3 Albumin/Globulin Ratio 1.1 TSH 0.77 02/20/23 15:24 WBC RBC Hgb Hct MCV MCH MCHC RDW Plt Count Neut % (Auto) Lymph % (Auto) [place] % (Auto) Eos % (Auto) Baso % (Auto) Neut # (Auto) Lymph # (Auto) [place] # (Auto) Eos # (Auto) Baso # (Auto) Sodium Potassium Chloride Carbon Dioxide BUN Creatinine Estimated GFR BUN/Creatinine Ratio Glucose Calcium Phosphorus 3.6 D Magnesium Total Bilirubin AST ALT Alkaline Phosphatase Total Protein Albumin Globulin Albumin/Globulin Ratio TSH 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 His exam findings indicate unilateral weakness of his left lower extremity, with pain of his knee and ankle and joint swelling. While he does have fairly marked electrolyte abnormalities, he appears asymptomatic to maybe mildly symptomatic with no concerning findings on EKG. Typically weakness from electrolyte disorders results in a diffuse weakness rather than unilateral, suggesting alternative diagnosis to his decreased mobility at this time. 1. Left leg weakness, L knee joint effusion - recommend DVT study to rule out possible DVT which could contribute to symptoms. Also given multiple joint tenderness on exam, recommend L foot and ankle Xray, along with Xray of his L hip given difficulty moving at left hip as well. - given L foot numbness and diffuse leg weakness, recommend MR of his lumbar spine to rule out spinal pathology - another possibility is for gout, consider restarting steroids though patient is adamant about not continuing another course after my discussion with him initially. - recommend ESR/ CRP, ANNETTE, RF given inflammation in a few joints on exam to evaluate for possible rheumatological cause. - if above evaluation is unremarkable would recommend orthopedic consultation or discussion with rheumatology given multiple failed rounds of steroids recently. 2. Hypoparathyroidism and hypocalcemia - patient has low calcium and innappropriately normal PTH on labs with level barely above normal lower limit. - he has mild symptoms, treatment is 1-4 g of calcium carbonate orally along with 0.5 mcg of calcitriol twice daily - EKG is normal sinus with normal intervals. 3. Hypomagnesemia, Mg 0.4. He has been ordered for 4g of magnesium. No EKG changes as noted above oral magnesium replacement recommended after repletion. 4. Hypothyroidism - continue home levothyroixine 100 mcg 5. HLD - continue home statin Code: Full, surrogate is patient's spouse I have utilized all available immediate resources to obtain, update, or review the patient's current medications. Dispo: recommend further evaluation as noted above prior to admission to medicine, as at this time evaluation suggests that correcting his underlying medical issues and electrolytes will not assist his ability to mobilize. Furthermore outpatient therapy would typically be recommended for the above hypoparathyroid and low Mg levels, unless his weakness is deemed due to presenting low Mg which does not appear to be the case at this time. Medicine will continue to assist with evaluation, and reconsider admission to [facility] depending on the above evaluation. Additional history was obtained via discussion with the ER provider, spouse and son. I have reviewed patient's labs, imaging, outpatient and previous doc umentation, and EKG to formulate the above plan.
--- NOTE | 2023-02-20 17:54 | DI.RAD.S_ITS ---
PROCEDURE: XR HIP W PEL IF DONE LT 2V INDICATIONS: Pain TECHNIQUE: AP pelvis with lateral view(s) of the left hip(s). COMPARISON: None. FINDINGS: Bones: No fractures or dislocations. Mild degenerative changes of the bilateral hip joints. Pelvic ring appears intact. No suspicious bony lesions. Degenerative changes of the visualized lower lumbar spine and pubic symphysis. Soft tissues: The visualized bowel gas pattern is normal. No suspicious soft tissue calcifications. IMPRESSION: No acute fracture or dislocation. Mild degenerative changes of the bilateral hips. Dictated by: Booker Card M.D. on 02/20/2023 at 19:39 Approved by: Booker Card M.D. on 02/20/2023 at 19:40
--- NOTE | 2023-02-20 17:54 | DI.RAD.S_ITS ---
PROCEDURE: XR ANKLE LT MIN 3V INDICATIONS: Pain TECHNIQUE: 4 views of the ankle were acquired. COMPARISON: [facility], , ANKLE 3 VIEWS RIGHT, 02/22/2017, 13:30. FINDINGS: Bones: No fractures or dislocations. Well corticated osseous fragment distal to the medial malleolus, likely sequela of prior traumatic injury. Ankle mortise is normally aligned. No suspicious bony lesions. Plantar calcaneal enthesophyte. Soft tissues: No tibiotalar joint effusion. Achilles tendon appears normal. IMPRESSION: No acute osseous abnormality. If pain persists with conservative management, consider repeat x-ray in 10-14 days or cross-sectional imaging. Dictated by: Booker Card M.D. on 02/20/2023 at 19:35 Approved by: Booker Card M.D. on 02/20/2023 at 19:37
--- NOTE | 2023-02-20 17:54 | DI.RAD.S_ITS ---
PROCEDURE: XR FOOT LT 2V INDICATIONS: Pain TECHNIQUE: 2 views of the foot were acquired. COMPARISON: [facility], , FOOT 3V RIGHT, 09/29/2007, 11:18. FINDINGS: Bones: No fractures or dislocations. No suspicious bony lesions. Limited evaluation the phalanges secondary to flexion/extension. Plantar calcaneal spurring. Mild midfoot degenerative changes. Soft tissues: No tibiotalar joint effusion. Achilles tendon appears normal. IMPRESSION: Limited evaluation of the digits secondary to flexion/extension. No acute osseous abnormality. If pain persists with conservative management, consider repeat x-ray in 10-14 days or cross-sectional imaging. Dictated by: Booker Card M.D. on 02/20/2023 at 19:37 Approved by: Booker Card M.D. on 02/20/2023 at 19:38
--- NOTE | 2023-02-20 17:54 | DI.MRI.S_ITS ---
PROCEDURE: MR LUMBAR SPINE WO CON INDICATIONS: Leg numbness left side TECHNIQUE: Noncontrast sagittal T1 spin echo and T2 fast echo, sagittal STIR, and T2 fast spin echo through the lumbar spine. In cases with scoliosis, additional coronal T2 fast spin echo may be performed. COMPARISON: None. FINDINGS: Image quality: Excellent. Alignment and Curvature: There is normal bony alignment. Bone Marrow: Mild degenerative endplate changes. Marrow is of normal overall signal. No acute vertebral body compression fractures. Spinal Cord: Conus medullaris terminates at the L1-L2 level. Visualized cord demonstrates normal signal and size. Paraspinous Soft Tissues: No paravertebral masses. T12-L1: No central canal or neural foraminal stenosis. L1-L2: Disc desiccation. Mild facet arthropathy. No central canal or neural foraminal stenosis. L2-L3: Disc desiccation height loss. Minimal posterior disc bulge. Facet arthropathy and thickening of the ligamentum flavum. No central canal or neural foraminal stenosis. L3-L4: Disc desiccation and minimal posterior disc bulge. Facet arthropathy. No central canal or neural foraminal stenosis. L4-L5: Disc desiccation height loss with mild posterior disc bulge. Facet arthropathy and thickening of the ligamentum flavum. Mild epidural lipomatosis. Mild central canal stenosis. Narrowing of the lateral recesses with abutment of the descending L5 nerve roots. Moderate left neural foraminal stenosis. L5-S1: Disc desiccation. Small posterior disc bulge. Facet arthropathy. No central canal stenosis. Mild bilateral neural foraminal stenosis. IMPRESSION: 1. Degenerative changes of the lumbar spine without high-grade stenosis. 2. Mild central canal stenosis at L4-5. Moderate left neural foraminal stenosis at L4-5. Dictated by: Booker Card M.D. on 02/20/2023 at 19:31 Approved by: Booker Card M.D. on 02/20/2023 at 19:35
--- NOTE | 2023-02-20 17:55 | DI.US.S_ITS ---
PROCEDURE: US [facility] VENOUS LOW EXTREM LT INDICATIONS: PAIN AND SWELLING IN LEFT LEG TECHNIQUE: Real-time imaging, as well as color and pulse Doppler interrogation, were performed of the lower extremity deep veins from the inguinal ligament to the popliteal fossa, with documentation of the visualized calf veins. COMPARISON: [facility], [facility] VENOUS LOW EXTREM LT, 10/31/2018, 19:56. FINDINGS: The common femoral, femoral, popliteal, and the visualized calf veins are normally compressible, and free of intraluminal thrombus. Color and pulse Doppler demonstrate normal phasic intraluminal flow. There is normal augmentation response to distal compression maneuver. There is limited evaluation of the popliteal vein, secondary to his severe pain and immobility. IMPRESSION: No findings of lower extremity deep venous thrombosis. Dictated by: Beto Silva M.D. on 02/20/2023 at 17:24 Approved by: Beto Silva M.D. on 02/20/2023 at 17:24
[2023-02-20] MEDS: LORazepam 2 MG/ML INJ 0.5 MG IV (18:12)
[2023-02-20 18:33] LABS: Rheumatoid Factor 15.4 IU/mL (<12.0)
[2023-02-20 18:37] LABS: Erythrocyte Sedimentation Rate 71 MM/HR (0-15)
[2023-02-20 19:19] LABS: C-Reactive Protein Quant 36.9 mg/dL (<1.0)
[2023-02-20 20:00] LABS: Vitamin D 25 Hydroxy (D3) 47.1 ng/mL (30.0-100.0)
[2023-02-20] MEDS: HYDROMORPHONE 1 MG INJ IV (21:11)
--- NOTE | 2023-02-20 21:57 | PM.HP.1 ---
History of Present Illness History of Present Illness Date Patient Seen: 02/20/23 Time Patient Seen: 11:30 Chief complaint: weakness/calcium low [place] Refer T-0 Narrative: For the details of the initial presentatio please refer to the excellent and detailed consult done today. In brief this 82 y/o M presented with right lower ext pain and generalizes weakness. He has hx of gout and has received outpt treatment including steroids but continued to have symmptosm. I the ED he was also found to have hypomag and hypokalemia whih were replaced. His w/u included mri of spine and us of the leg r/o dvt which were negative. I requested synovial tap of the knee to r/o septic arthritis but ED MD said she attempted but it faied and she thinks there is not enough fluid. Pt reportedly can not walk safely due to pain. 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 members: spouse Smoking Status: Former smoker Tobacco: How many years used: 35 alcohol intake: current Type(s) of exercise: independent ambulation frequency: daily duration: > 90 minutes/day Meds Home Medications and Allergies Home Medications Medication Instructions Recorded Confirmed Type colchicine (gout) 0.6 mg tablet 0.6 mg PO BID 07/26/21 02/20/23 History lisinopril 20 mg tablet 20 mg PO DAILY #90 tabs 08/01/22 02/20/23 Rx simvastatin 40 mg tablet (Zocor) 40 mg PO HS #90 tabs 10/14/22 02/20/23 Rx rabeprazole 20 mg tablet,delayed 20 mg PO DAILY #90 tabs 01/16/23 02/20/23 Rx release (AcipHex) levothyroxine 100 mcg tablet 100 mcg PO DAILY #90 tabs 02/17/23 02/20/23 Rx Allergies Allergy/AdvReac Type Severity Reaction Status Date / Time No Known Drug Allergies Allergy Verified 02/20/23 12:27 Review of Systems Review of Systems Narrative: all other systems reviewied and were otherwise negative Exam Vital Signs (past 8 hours): - 02/20/23 14:13 02/20/23 14:30 02/20/23 14:30 Pulse Rate 91 H 87 Respiratory Rate 20 22 Blood Pressure 133/66 Pulse Oximetry 97 96 02/20/23 15:00 02/20/23 15:00 02/20/23 15:30 Pulse Rate 84 88 Respiratory Rate 20 Blood Pressure 125/66 Pulse Oximetry 97 97 02/20/23 16:00 02/20/23 16:03 02/20/23 16:03 Pulse Rate 82 82 Respiratory Rate 22 24 Blood Pressure 124/60 Pulse Oximetry 95 96 02/20/23 16:30 02/20/23 16:30 02/20/23 17:00 Pulse Rate 90 Respiratory Rate 20 Blood Pressure 141/66 H 146/65 H Pulse Oximetry 96 02/20/23 17:00 02/20/23 17:30 02/20/23 17:30 Pulse Rate 90 90 Respiratory Rate 24 20 Blood Pressure 141/66 H Pulse Oximetry 96 96 02/20/23 18:00 02/20/23 18:00 02/20/23 19:06 Pulse Rate 92 H 91 H Respiratory Rate 22 20 Blood Pressure 147/65 H Pulse Oximetry 96 95 02/20/23 19:24 02/20/23 19:24 02/20/23 19:30 Pulse Rate 87 88 Respiratory Rate Blood Pressure 120/60 Pulse Oximetry 95 94 02/20/23 20:00 02/20/23 20:09 02/20/23 20:09 Pulse Rate 84 87 Respiratory Rate 22 Blood Pressure 131/64 Pulse Oximetry 94 95 02/20/23 20:30 02/20/23 21:00 02/20/23 21:01 Pulse Rate 87 82 Respiratory Rate Blood Pressure 145/98 H Pulse Oximetry 94 95 02/20/23 21:01 02/20/23 21:30 Pulse Rate 82 84 Respiratory Rate 22 Blood Pressure Pulse Oximetry 95 95 Oxygen Delivery Method Room Air Const General: cooperative [facility] Head: normal to inspection Neck Neck: normal visual inspection Cardio Rate: regular rate Rhythm: regular rhythm GI Inspection: normal to inspection Neuro General: patient alert, patient awake and patient oriented x3 Extrem Other: right lower ext swelling and tenderness especially knee area Objective Labs 02/20/23 14:20 02/20/23 14:20 Labs: Laboratory Results - last 24 hr 02/20/23 02/20/23 02/20/23 14:20 14:20 14:20 WBC 12.1 H RBC 4.22 L Hgb 11.7 L Hct 35.0 L MCV 83.0 MCH 27.8 MCHC 33.4 RDW 17.5 H Plt Count 313 Neut % (Auto) 86.1 H Lymph % (Auto) 5.8 L [place] % (Auto) 7.5 Eos % (Auto) 0.3 L Baso % (Auto) 0.3 Neut # (Auto) 60119 H Lymph # (Auto) 700 L [place] # (Auto) 900 Eos # (Auto) 0 Baso # (Auto) 0 ESR Sodium 138 Potassium 3.5 Chloride 102 Carbon Dioxide 25 BUN 19 Creatinine 1.42 H Estimated GFR 49 L BUN/Creatinine Ratio 13.4 Glucose 95 Calcium 6.5 L Phosphorus Magnesium 0.4 L* Total Bilirubin 1.3 AST 34 ALT 37 Alkaline Phosphatase 49 C-Reactive Protein Total Protein 7.0 Albumin 3.7 Globulin 3.3 Albumin/Globulin Ratio 1.1 25-OH Vitamin D Total TSH 0.77 Rheumatoid Factor 02/20/23 02/20/23 02/20/23 15:24 18:15 18:15 WBC RBC Hgb Hct MCV MCH MCHC RDW Plt Count Neut % (Auto) Lymph % (Auto) [place] % (Auto) Eos % (Auto) Baso % (Auto) Neut # (Auto) Lymph # (Auto) [place] # (Auto) Eos # (Auto) Baso # (Auto) ESR 71 H Sodium Potassium Chloride Carbon Dioxide BUN Creatinine Estimated GFR BUN/Creatinine Ratio Glucose Calcium Phosphorus 3.6 D Magnesium Total Bilirubin AST ALT Alkaline Phosphatase C-Reactive Protein 36.9 H Total Protein Albumin Globulin Albumin/Globulin Ratio 25-OH Vitamin D Total TSH Rheumatoid Factor 15.4 H 02/20/23 18:15 WBC RBC Hgb Hct MCV MCH MCHC RDW Plt Count Neut % (Auto) Lymph % (Auto) [place] % (Auto) Eos % (Auto) Baso % (Auto) Neut # (Auto) Lymph # (Auto) [place] # (Auto) Eos # (Auto) Baso # (Auto) ESR Sodium Potassium Chloride Carbon Dioxide BUN Creatinine Estimated GFR BUN/Creatinine Ratio Glucose Calcium Phosphorus Magnesium Total Bilirubin AST ALT Alkaline Phosphatase C-Reactive Protein Total Protein Albumin Globulin Albumin/Globulin Ratio 25-OH Vitamin D Total 47.1 TSH Rheumatoid Factor Assessment & Plan Assessment & Plan narrative: 82 y/o M 1. Left leg weakness, L knee joint pain will start antibiotics until infection is rulled out. If ruled out can start steroids. If no satisfactory improvement consider ortho cosnsult and CT scan and possibe re-attempt tapping the knee. pain control ? 2. Hypoparathyroidism and hypocalcemia s/p replacement, EKG is normal sinus with normal intervals. telemetry, monitor 3. Hypomagnesemia, s/p replacement, EKG is normal sinus with normal intervals. telemetry, monitor. 4. Hypothyroidism ?- continue home levothyroixine 100 mcg 5. HLD ?- continue home statin Code: Full, surrogate is patient's spouse
[2023-02-21] VITALS (10 sets, daily range): BP systolic 111–137; BP diastolic 60–65; PULSE 75–95; RESP 18–20; TEMP 36.7–38.6; O2SAT 96–98
[2023-02-21] MEDS: VANCOMYCIN 1,500 MG/300 ML PIGGYBACK 150 MG IV (02:02)
[2023-02-21] MEDS: PIPERACILLIN/TAZO 3.375 GM in SODIUM CHLORIDE 0.9% 100 ML IV ×3 (04:08→22:18)
[2023-02-21 06:23] LABS: Add Manual Diff / Slide Review NO; Basophils Absolute Auto 0 /uL (0-100); Basophils Percent Auto 0.4 % (0-2); Eosinophils Absolute Auto 100 /uL (0-450); Eosinophils Percent Auto 1.5 % (2-4); Hemoglobin 10.7 g/dL (13.5-17.5); Lymphocytes Absolute Auto 1000 /uL (1100-4500); Lymphocytes Percent Auto 15.3 % (25-40); Mean Corpuscular HGB Conc 33.4 % (30-36); Mean Corpuscular Hemoglobin 28.1 PG (26-34); Mean Corpuscular Volume 84.1 fL (80-100); Monocytes Absolute Auto 600 /uL (0-900); Monocytes Percent Auto 9.1 % (3-14); Neutrophils Absolute Auto 4900 /uL (1500-7000); Neutrophils Percent Auto 73.7 % (50-75); Platelet Count 290 X10^3/uL (150-400); Red Cell Distribution Width 17.6 % (11.6-14.8); White Blood Cell Count 6.7 X10^3/uL (4.5-11.0)
[2023-02-21 06:32] LABS: BUN Creatinine Ratio 13.1 (6-22); Blood Urea Nitrogen 19 mg/dL (9-20); Carbon Dioxide 24 mmol/L (22-32); Chloride 100 mmol/L (98-107); Estimated Glomerular Filt Rate 48 mL/min (>60); Glucose 70 mg/dL (80-110); HEMOLYSIS < 15 (0-50); Magnesium 1.3 mg/dL (1.6-2.3); Potassium 3.3 mmol/L (3.4-5.1); Sodium 135 mmol/L (137-145)
[2023-02-21 06:36] LABS: Calcium 5.9 mg/dL (8.4-10.2)
[2023-02-21] MEDS: MAGNESIUM SULFATE 2 GM/50 ML PIGGYBACK IV (09:22)
--- NOTE | 2023-02-21 09:30 | PT.IPTN ---
Physical Therapy Treatment Note M2 PT-IP Current Condition Start: 02/20/23 15:04 Freq: Status: Active Protocol: Document 02/20/23 15:43 SAK (Rec: 02/20/23 15:56 SAK [id number]) Physical Therapy Current Condition Current Condition Evaluation Date 02/20/23 Treatment Diagnosis weakness, left knee pain Onset Date 02/20/23 M3 PT-IP Subjective Start: 02/20/23 15:04 Freq: Status: Active Protocol: Document 02/21/23 09:55 TS (Rec: 02/21/23 10:13 TS [id number]) Subjective Physical Therapy Visit Type Type Treatment Note Visit Start Time 09:30 Visit Stop Time 09:54 Total Visit Minutes 24 Notes present Number of [employer] OPERATOR Visits 1 Physical Therapy Visit Comments Patient Comments Pt reports feeling a little better today but still has pain in L knee. He states he has an appointment on Mar 11 for his L knee to see if he may need a replacement. Pt is agreeable to PT. Therapy Pain Assessment Pain When Pain Assessed During Mobility Pain Present Pain Present Pain Reported M4 PT-IP Mobility and Gait Start: 02/20/23 15:04 Freq: Status: Active Protocol: Document 02/21/23 09:55 TS (Rec: 02/21/23 10:13 TS [id number]) PT-Bed Mobility Assessment Supine to Sit Supine to Sit Moderate Assistance Scooting Scooting to Edge of Bed Minimal Assistance PT-Transfer Assessment Sit to and From Stand Sit to and from Stand Moderate Assistance Equipment Transfer Assistive Device Gait Belt,Front Wheeled Walker Transfers Transfer Destination Chair Transfer Technique Stand Step Pivot Transfer Ability Level of Assist Maximum Assistance Comments Mobility Comments Pt found resting in bed, agreeable to PT. He performed supine to sit ModA w/HOB elevate and for LLE to EOB and uprighting trunk with handheld assist. Pt scooted to EOB Leidy with use of transfer pad to scoot LLE forward. Sit to stand from bed ModA w/FWW, pt has a heavy posterior lean and heavy use of UEs on FWW. He performed stand step pivot to chair MaxA with cues for FWW management. PT sat in chair, performed SLR with assist and sitting marches with minimal lift. Pt was left in chair with call light nearby, spouse in room, RN notified. Gait Assessment Gait Gait Assistance Required: Maximum Assistance,1 Person Assist Distance (Feet) 3 Able to Maintain Weight Bearing Status No During Gait Assistive Devices Assistive Device Front Wheeled Walker Gait Deviations General Gait Pattern Ataxic,Decreased Stride Length ,Decreased Feet Clearance,Step -to Gait Factors Limiting Gait Function Factors Limiting Gait Function Decreased Activity Tolerance, Decreased Strength,Difficulty Following Directions,Limited Range of Motion,Pain,Poor Balance,Poor Safety Awareness Comments Gait Comments Stand step pivot to chair. See mobility comments. PT-Balance Assessment Sitting Balance and Reactions Static Sitting Balance Ability Good Dynamic Sitting Balance Ability Good Standing Balance and Reactions Static Standing Balance Ability Poor Dynamic Standing Balance Ability Poor M5 PT-IP Objective Assessments Start: 02/20/23 15:04 Freq: Status: Active Protocol: Document 02/20/23 15:43 SAK (Rec: 02/20/23 15:56 SAK [id number]) Orientation Orientation/Cognition Level of Alertness Alert Orientation Name,Age,Situation Safety Awareness Understands Safety Issues Gross Range of Motion Upper Extremity ROM Assessment Within Functional Limits Lower Extremity ROM Assessment Left Impaired Impairments due to pain Strength Upper Extremity Strength Assessment Within Functional Limits Comments Strength Comments right LE WNL hip and knee. Ankle 3-/5 with moderate swelling Left LE; unable to lift leg in sitting or supine, unable to move to side 0/5. Knee 3-/5 due to pain, ankle 3-/5. M7 PT-IP Assessment and Plan Start: 02/20/23 15:04 Freq: Status: Active Protocol: Document 02/21/23 09:55 TS (Rec: 02/21/23 10:13 TS [id number]) PT Summary Assessment and Plan Potential Rehabilitation Potential Fair Summary Progress Towards Goals Slow Progress due to Pain,Slow Progress due to Medical Issues,Slow Progress due to Activity Tolerance Assessment Summary Mitch is making slow progress with his mobility this session. He requires ModA for sitting up to EOB and for LLE assistance. He performed sit to stand ModA w/FWW. He has poor balance in standing with a heavy retrolean. He smbualted ot chair with a stand step pivot transfer MaxA for staying upright and FWW management. He is having less pain this morning but continues to have significant weakness in LLE. PT continues to recommend SNF at this time to progress bed mobility, transfers and gait. Goals Bed Mobility Goal Independent Transfer Goal Independent Gait Goal Independent Gait Distance 50 Days to Meet Goals 7 Frequency of Treatment Frequency Of Treatment Once a Day Treatment Plan Physical Therapy Treatment Plan Bed Mobility Training,Transfer Training,Gait Training, Therapeutic Exercise,Discharge Planning Weight Bearing Status Weight Bearing Status Full Weight Bearing Recommendations To Nursing Amount of Assist Needed 2 Person Assist Discharge Recommendations PT Discharge Recommendations SNF Rehab Transportation Needs at Discharge Wheelchair/Cabulance
[2023-02-21] MEDS: CALCIUM CHLORIDE 500 MG in SODIUM CHLORIDE 0.9% 100 ML 105 MG IV (09:46)
--- NOTE | 2023-02-21 10:20 | CM.DANOTE ---
Patient is an 82 yo male who was admitted on 02/20/23 for Weakness/Joint pain. Pt has [employer] for insurance and his PCP is Dr. Rito Arrieta. EMR was reviewed. Per MD, pt with hx of gout flareups and admitted to r/o DVT, likely more imaging to r/o other medical causes and hypocalcemia and needing magnesium. Ortho Consult ordered and pending. Per PT in the ED, recommending SNF due to pt's inability to ambulate and max assist. PT to continue working with pt in hopes once electrolytes and imaging completed he might be closer to baseline. SW met bedside with pt and spouse and explained role and they confirm they live in [place] and both are active and independent at baseline, pt does not use DME for ambulation, and still drives. Pt had been walking a mile without assist until a couple days ago. Pt states this does not feel like his typical gout flare. Pt has no hx of SNF or HH and their son is a battery assembler plastic who lives in [place] and is supportive but working real time analyst. Pt has a scheduled Ortho appointment with [facility] on Mar 11 next month to discuss and plan a Left TKA (pt has hx of RTKA about 5 yrs ago). Pt's current OBS Status is a barrier if SNF needed but awaiting Ortho consult and imaging towards determining if pt meets Inpt Criteria. Plan: SW to follow closely for further imaging, Ortho recommendations and further PT/OT to determine discharge planning needs of SNF vs HH. OBS status a barrier if SNF needed. VINEET Buckner Discharge Planning/Care Management Advanced directive, confirm from FAMILY Start: 02/20/23 23:33 Freq: Q24H Status: Active Protocol: Document 02/20/23 23:33 MS (Rec: 02/20/23 23:33 MS [id number]) Advance Directive, confirm on record Time 23:33 Person contacted Patient Copy received No CM Discharge Assessment Start: 02/21/23 10:11 Freq: Status: Active Protocol: Document 02/21/23 10:11 BF (Rec: 02/21/23 10:19 BF [id number]) Discharge Planning Assessment Assigned [employer] Director VINEET Rey DPOA/Assigned Designee Name spouse Daija Contact Information [phone] Advance Directives? Yes Advance Directives on File No History Provided By Patient,Significant Other, Medical Record Has Patient been admitted in last 30 No days? Prior Living Arrangements House Household Members spouse Type of transporation used prior to Drives own vehicle admit Independent with ADL's Yes Is patient alert and oriented? Yes Caregiver for Another No Patient/Family Preference Nursing Home Facility,Home with Home Health Comment Pending PT/OT eval and recommendations SNF vs HH Barriers to Discharge Yes Comment Currently OBS status, barrier if SNF needed Discharge Plan Home with Home Health Transportation Arrangement Spouse can transport if safe for home Additional Comment Pending PT/OT Whiteboard Updated in Patient Room with Yes name and ext. # of [employer] Director Review Status In Process Please Provide Date Initial DC 02/21/23 Assessment Was Performed Next Review Type Continued Stay Review
[2023-02-21] MEDS: POTASSIUM CHLORIDE 20 MEQ TAB 40 MEQ PO (11:00)
--- NOTE | 2023-02-21 11:07 | OT.IPNOTE ---
Attempted to see pt for OT eval and at this time pt states has already gotten up and not wanting to get up. To check on the pt later.
--- NOTE | 2023-02-21 14:23 | OT.IPNOTE ---
Attempted to see pt again, in too much pain and now states his right foot now hurting. Pt not wanting to do OT eval today.
[2023-02-21] MEDS: ACETAMINOPHEN 325 MG TABLET 650 MG PO ×2 (14:43→21:56)
[2023-02-21 16:32] LABS: Magnesium 1.8 mg/dL (1.6-2.3)
--- NOTE | 2023-02-21 16:53 | DI.CT.S_ITS ---
PROCEDURE: CT HEAD/BRAIN WO CON INDICATIONS: left leg weak TECHNIQUE: Noncontrast 4.5 mm thick angled axial sections acquired from the foramen magnum to the vertex, with coronal and sagittal reformats. For radiation dose reduction, the following was used: automated exposure control, adjustment of mA and/or kV according to patient size. COMPARISON: None. FINDINGS: Image quality: Excellent. CSF spaces: Basal cisterns are patent. No extra-axial fluid collections. Ventricles are normal in size and shape. Brain: No midline shift. No intracranial masses or hemorrhage. [place]-white matter interface is normal. Skull and face: Calvarium and visualized facial bones are intact, without suspicious lesions. Sinuses: Visualized sinuses and mastoids are clear. IMPRESSION: No acute intracranial pathology. Dictated by: John Madrid M.D. on 02/21/2023 at 18:46 Approved by: John Madrid M.D. on 02/21/2023 at 18:47
--- NOTE | 2023-02-21 16:55 | DI.CT.S_ITS ---
PROCEDURE: CT ABDOMEN PELVIS WO CON INDICATIONS: weight loss TECHNIQUE: Axial sections were acquired from the lung bases to the pubic symphysis. Coronal and sagittal reformats were performed. For radiation dose reduction, the following was used: automated exposure control, adjustment of mA and/or kV according to patient size. COMPARISON: None. FINDINGS: Image quality: Suboptimal evaluation malignancy given lack of intravenous contrast. Lung bases: Small hiatal hernia. Heart: Cardiomegaly. URINARY: Right Kidney: No stones or hydronephrosis. Right Ureter: No hydroureter. Left Kidney: No stones or hydronephrosis. Left Ureter: No hydroureter. Bladder: Normal wall thickness. No stones. ABDOMEN: Liver: Unremarkable. Gallbladder: Unremarkable. Biliary ducts: Unremarkable. Pancreas: Unremarkable. Spleen: Unremarkable. Adrenal Glands: Unremarkable. Stomach and Bowel: Stomach, small bowel loops, and colon are unremarkable. Peritoneum: No abnormal intraperitoneal fluid. No free air. Ventral Wall: No hernia. Abdominal Nodes: No enlarged retroperitoneal or mesenteric lymph nodes. Vessels: Aorta and inferior vena cava are normal in size. PELVIS: Pelvic Organs: Mild posterior prominence of the right peripheral zone of the prostate (series 508, image 97).. Pelvic Nodes: Unremarkable. Miscellaneous: No inguinal hernias are seen. Bones: Unremarkable. IMPRESSION: Suboptimal evaluation for malignancy given lack of intravenous contrast. Mild posterior prominence of the right peripheral zone of the prostate, which may indicate malignancy. Correlate with PSA and consider outpatient prostate MRI or urology referral. Dictated by: John Madrid M.D. on 02/21/2023 at 18:47 Approved by: John Madrid M.D. on 02/21/2023 at 18:49
[2023-02-21] MEDS: ASPIRIN EC 81 MG TABLET PO (18:13)
[2023-02-21] MEDS: CALCIUM CARBONATE 500 MG TAB PO (18:15)
[2023-02-21] MEDS: ATORVASTATIN 20 MG TABLET 40 MG PO (20:44)
--- NOTE | 2023-02-21 20:59 | P.PN_ITS ---
Subjective Subjective Date Patient Seen: 02/21/23 Time Patient Seen: 08:00 Interval history: He has a known history of gout. He says it is usually brought on by alcohol or red meat. He and family state he has not been taking either. His symptoms are somewhat unclear, he tells a different story from family. He currently states he has no pain, though he had been saying previously he was in pain. He appears comfortable. He denies having a significantly red swollen joint. He does have some left knee swelling, some left foot discomfort, and some right foot swellin g. He has pain and weakness when he walks. He has weakness that his noted started about 5 days ago. He is weak in the left leg. He has no upper extremity symptoms. He has some intermittent dizziness. No speech issues. He has a decreased appetite and has lost 15 pounds in the last month unintentionally he says, though per EMR weights this is not apparent. Exam Vital Signs (past 8 hours): - 02/21/23 14:41 02/21/23 14:43 02/21/23 15:02 Temperature 99.2 F 99.2 F 100.1 F H Pulse Rate 95 H Respiratory Rate 18 Blood Pressure 129/65 Pulse Oximetry 96 Oxygen Flow Rate 0 02/21/23 15:41 02/21/23 15:10 Temperature 99.0 F 99.0 F Pulse Rate Respiratory Rate Blood Pressure Pulse Oximetry Oxygen Flow Rate Oxygen Delivery Method Room Air Oxygen Flow Rate 0 Narrative Exam Narrative: General:?no acute distress HEENT: left glass eye Lungs:?clear bilaterally Cardio:?regular rate and rhythm, no murmurs Abdomen: soft nontender Extremities: right foot swelling, left knee swelling, minimal erythema, warmth or pain NEURO: normal sensory exam, 3/5 strength left hip and left foot Objective Labs 02/21/23 05:30 02/21/23 05:30 Labs: Laboratory Results - last 24 hr 02/21/23 02/21/23 02/21/23 05:30 05:30 16:00 WBC 6.7 RBC 3.80 L Hgb 10.7 L Hct 32.0 L MCV 84.1 MCH 28.1 MCHC 33.4 RDW 17.6 H Plt Count 290 Neut % (Auto) 73.7 Lymph % (Auto) 15.3 L [place] % (Auto) 9.1 Eos % (Auto) 1.5 L Baso % (Auto) 0.4 Neut # (Auto) 4900 Lymph # (Auto) 1000 L [place] # (Auto) 600 Eos # (Auto) 100 Baso # (Auto) 0 Sodium 135 L Potassium 3.3 L Chloride 100 Carbon Dioxide 24 BUN 19 Creatinine 1.45 H Estimated GFR 48 L BUN/Creatinine Ratio 13.1 Glucose 70 L Calcium 5.9 L* Magnesium 1.3 L 1.8 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 Left leg weakness -negative for DVT, no acute pathology in MRI of L spine, multiple xrays done of left foot, ankle and hip with no acute process -CT head with no acute process -MRI head ordered -weakness started at least 5 days ago, well outside any window if this is CVA -symptoms do not sound like gout flare to me, and to patient this is not how his gout presents -will continue allopurinol, but hold off any treatment for acute gout flare -ED attempted tap of left knee, but minimal fluid was there, knee does not appear acutely erythematous, pained, or large -last tap of knee in our records was in October 2022 and showed no crystals -previous physician ordered esr, crp, and RF which are elevated, with ANNETTE pending -may need referral for rheum 2. Hypoparathyroidism and hypocalcemia - patient has low calcium and innappropriately normal PTH on labs with level barely above normal lower limit. - will replete calcium as needed - EKG is normal sinus with normal intervals. - etiology is not clear to me, CT abdomen to eval for abnormality, patient notes poor appetite which may be the cause but this level of severity seems quite sig nificant 3. Hypomagnesemia, -Mg 0.4. He has been ordered for 4g of magnesium. No EKG changes as noted above -again etiology is not quite clear to me, possibly related to diet, CT abdomen ordered -magnesium has already been replaced, will order urine mag/creatinine to eval further in am, but perhaps results not interpretable since magnesium is improved 4. Hypothyroidism - continue home levothyroixine 100 mcg 5. HLD - continue home statin
[2023-02-21] MEDS: VANCOMYCIN 1,250 MG/250 ML PIGGYBACK 250 MG IV (21:00)
[2023-02-21] MEDS: SODIUM CHLORIDE 0.9% FLUSH 10 ML IV (21:08)
[2023-02-21] MEDS: SODIUM CHLORIDE 0.9% 250 ML 21 ML IV (21:08)
--- NOTE | 2023-02-21 21:49 | PC.NURSE ---
Temp. 101.5 declined any interventions ie; cold compress, cooling measures. Also declined to take his Heparin shot & Tylenol to reduced his fever. Will monitor & continue plan of care.
--- NOTE | 2023-02-21 22:29 | PC.NURSE ---
Temp. still elevated 101.1, with spouse encouragement patient took 650 mg. of Tylenol PO, will monitor.
[2023-02-22] MEDS: LEVOTHYROXINE 100 MCG TABLET PO (05:52)
--- NOTE | 2023-02-22 06:25 | PC.NURSE ---
Declined his Zosyn 0600 dose. Educated the benefit of his anti-biotic treatment, but adamantly refused his Zosyn. Informed & message sent to Dr. Cool. Will report to severo SERVIN.
[2023-02-22 06:41] LABS: BUN Creatinine Ratio 11.7 (6-22); Blood Urea Nitrogen 16 mg/dL (9-20); Calcium 7.1 mg/dL (8.4-10.2); Carbon Dioxide 21 mmol/L (22-32); Chloride 106 mmol/L (98-107); Estimated Glomerular Filt Rate 52 mL/min (>60); Glucose 101 mg/dL (80-110); HEMOLYSIS < 15 (0-50); Potassium 3.9 mmol/L (3.4-5.1); Sodium 136 mmol/L (137-145)
[2023-02-22 06:52] VITALS: BP 118/72; PULSE 77; RESP 18; TEMP 37.1; O2SAT 95
[2023-02-22 08:05] LABS: Creatinine Urine Random 55.3 mg/dL
--- NOTE | 2023-02-22 08:20 | PM.PN.1 ---
Subjective Subjective Date Patient Seen: 02/21/23 Time Patient Seen: 08:00 Interval history: Patient's L knee and ankle pain has improved significantly since admission. Left knee is still swollen however. Ortho consulted for L knee aspiration. Exam Vital Signs (past 8 hours): - 02/22/23 06:52 Temperature 98.7 F Pulse Rate 77 Respiratory Rate 18 Blood Pressure 118/72 Pulse Oximetry 95 Oxygen Delivery Method Room Air Oxygen Flow Rate 0 Narrative Exam Narrative: General:?no acute distress HEENT: left glass eye Lungs:?clear bilaterally Cardio:?regular rate and rhythm, no murmurs Abdomen: soft nontender Extremities: left knee and ankle swelling, greater warmth than the right NEURO: normal sensory exam, 3/5 strength left hip and left foot Objective Labs 02/21/23 05:30 02/22/23 05:50 Labs: Laboratory Results - last 24 hr 02/21/23 02/22/23 16:00 05:50 Sodium 136 L Potassium 3.9 Chloride 106 Carbon Dioxide 21 L BUN 16 Creatinine 1.37 H Estimated GFR 52 L BUN/Creatinine Ratio 11.7 Glucose 101 Calcium 7.1 L Magnesium 1.8 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 Questionable inflammatory arthritis -negative for DVT, no acute pathology in MRI of L spine, multiple xrays done of left foot, ankle and hip with no acute process -CT head with no acute process -weakness started at least 5 days ago, well outside any window if this is CVA -symptoms do not fit with a gout flare -will continue allopurinol, but hold off any treatment for acute gout flare -last tap of left knee in our records was in October 2022 and showed no crystals -CRP elevated to 36.9, ESR 71, RF 15, with ANNETTE pending -suggest referral from PCP to rheum -Dr. Medrano ortho consulted and tapped left knee, getting 65mL of red cloudy fluid. This is sent for gram stain, culture, crystals and cell count. -continue broad spectrum abx, febrile overnight on 02/21-, blood cultures pending 2. Hypoparathyroidism and hypocalcemia - patient has low calcium and innappropriately normal PTH on labs with level barely above normal lower limit. - will replete calcium as needed - EKG is normal sinus with normal intervals. - etiology is not clear, CT abdomen says mild posterior prominence of prostate, otherwise normal - start daily calcium supplement 3. Hypomagnesemia -Mg 0.4. He has been ordered for 4g of magnesium. No EKG changes as noted above -again etiology is not quite clear to me, possibly related to diet, CT abdomen ordered -magnesium has already been replaced, will order urine mag/creatinine to eval further in am, but perhaps results not interpretable since magnesium is improved -start daily mag supplement 4. Hypothyroidism - continue home levothyroixine 100 mcg 5. HLD - continue home statin Dispo: Home in 1-2 days.
[2023-02-22 08:44] LABS: Uric Acid 3.9 mg/dL (3.5-8.5)
[2023-02-22 09:10] LABS: Procalcitonin 0.24 ng/mL (<0.5)
[2023-02-22] MEDS: metroNIDAZOLE 500 MG TABLET PO ×3 (09:30→20:19)
[2023-02-22] MEDS: allopurinoL 100 MG TABLET PO (09:30)
[2023-02-22] MEDS: ASPIRIN EC 81 MG TABLET PO (09:30)
[2023-02-22] MEDS: CEFEPIME 2 GM in SODIUM CHLORIDE 0.9% 100 ML IV (09:31)
[2023-02-22] MEDS: HEPARIN 5,000 UNIT/ML VIAL 5000 UNIT SUBCUT ×2 (09:31→20:18)
[2023-02-22] MEDS: SODIUM CHLORIDE 0.9% FLUSH 10 ML IV ×2 (09:33→20:20)
[2023-02-22 09:34] LABS: C-Reactive Protein Quant 30.7 mg/dL (<1.0)
--- NOTE | 2023-02-22 10:00 | PT.IPTN ---
Physical Therapy Treatment Note M2 PT-IP Current Condition Start: 02/20/23 15:04 Freq: Status: Active Protocol: Document 02/20/23 15:43 SAK (Rec: 02/20/23 15:56 SAK [id number]) Physical Therapy Current Condition Current Condition Evaluation Date 02/20/23 Treatment Diagnosis weakness, left knee pain Onset Date 02/20/23 M3 PT-IP Subjective Start: 02/20/23 15:04 Freq: Status: Active Protocol: Document 02/22/23 10:27 TS (Rec: 02/22/23 10:43 TS [id number]) Subjective Physical Therapy Visit Type Type Treatment Note Visit Start Time 10:00 Visit Stop Time 10:15 Total Visit Minutes 15 Notes present Number of CORRECTIONS SERGEANT Visits 1 Physical Therapy Visit Comments Patient Comments Pt reports he is moving much better and on his own. He states he walked to shower with nursing this morning and is having less pain. Pt agreeable to PT. Patient Goals go home Therapy Pain Assessment Pain When Pain Assessed During Mobility Pain Present Pain Present Pain Reported M4 PT-IP Mobility and Gait Start: 02/20/23 15:04 Freq: Status: Active Protocol: Document 02/22/23 10:27 TS (Rec: 02/22/23 10:43 TS [id number]) PT-Bed Mobility Assessment Supine to Sit Supine to Sit Standby Assistance,Bedrails Scooting Scooting to Edge of Bed Standby Assistance PT-Transfer Assessment Sit to and From Stand Sit to and from Stand Standby Assistance,Use of Upper Extremities Equipment Transfer Assistive Device Gait Belt,Front Wheeled Walker Comments Mobility Comments Pt found resting in bed, agreeable to PT. Supine to sit SBA with use of handrail, pt is impulsive to move before therapist is ready. Sit to stand from bed w/FWW SBA, pt has some retroleaning, braces back of LEs against bed to assist in standing. He ambulated ~60' in room SBA with FWW. He has a step to antalgic gait due to pain in LLE and is unsteady. He does not have any buckling or LOB with gait. Educated pt on the continued use of FWW and to make sure he continues to get up with nursing. Pt was left sitting EOB with spouse in room, bed alarm on. Gait Assessment Gait Gait Assistance Required: Standby Assistance Distance (Feet) 60 Able to Maintain Weight Bearing Status No During Gait Assistive Devices Assistive Device Gait Belt,Front Wheeled Walker Gait Deviations General Gait Pattern Antalgic,Decreased Stride Length,Decreased Feet Clearance,Step-to Gait Factors Limiting Gait Function Factors Limiting Gait Function Decreased Activity Tolerance, Decreased Strength,Difficulty Following Directions,Limited Range of Motion,Pain,Poor Balance,Poor Safety Awareness Comments Gait Comments See mobility comments. PT-Balance Assessment Sitting Balance and Reactions Static Sitting Balance Ability Good Dynamic Sitting Balance Ability Good Standing Balance and Reactions Static Standing Balance Ability Fair Dynamic Standing Balance Ability Fair M5 PT-IP Objective Assessments Start: 02/20/23 15:04 Freq: Status: Active Protocol: Document 02/20/23 15:43 SAK (Rec: 02/20/23 15:56 SAK [id number]) Orientation Orientation/Cognition Level of Alertness Alert Orientation Name,Age,Situation Safety Awareness Understands Safety Issues Gross Range of Motion Upper Extremity ROM Assessment Within Functional Limits Lower Extremity ROM Assessment Left Impaired Impairments due to pain Strength Upper Extremity Strength Assessment Within Functional Limits Comments Strength Comments right LE WNL hip and knee. Ankle 3-/5 with moderate swelling Left LE; unable to lift leg in sitting or supine, unable to move to side 0/5. Knee 3-/5 due to pain, ankle 3-/5. M7 PT-IP Assessment and Plan Start: 02/20/23 15:04 Freq: Status: Active Protocol: Document 02/22/23 10:27 TS (Rec: 02/22/23 10:43 TS [id number]) PT Summary Assessment and Plan Potential Rehabilitation Potential Fair Summary Impairments Pain,ROM,Strength,Transfers, Gait,Activity Tolerance Progress Towards Goals Progressing Toward Goals Assessment Summary Mitch is making improvements with his mobility this session . He performed bed mobility SBA with bed rail. He performed sit to stand x1 SBA w/FWW, has some posterior leaning, requires bracing of back of LEs against bed to come into standing. He progressed his gait to ~60' SBA w/FWW. He is unsteady with gait due to pain/swelling in L knee, recommended pt continue to ambulate with FWW. He is impulsive to move before therapist is ready and lacks some safety awareness with his gait, remains at risk for falls. PT is recommending home w/assist and HHPT. PT will continue to monitor pt while here in hospital. Goals Bed Mobility Goal Independent Transfer Goal Independent Gait Goal Independent Gait Distance 50 Days to Meet Goals 7 Frequency of Treatment Frequency Of Treatment Once a Day Treatment Plan Physical Therapy Treatment Plan Bed Mobility Training,Transfer Training,Gait Training, Therapeutic Exercise,Discharge Planning Weight Bearing Status Weight Bearing Status Full Weight Bearing Recommendations To Nursing Amount of Assist Needed 1 Person Assist Discharge Recommendations PT Discharge Recommendations Home with Assistance,Home Health Transportation Needs at Discharge Wheelchair/Cabulance
[2023-02-22] MEDS: CALCIUM CARBONATE 500 MG TAB PO ×3 (10:51→20:18)
--- NOTE | 2023-02-22 10:56 | CM.DPNOTE ---
Met with patient, and son at bedside to discuss DC plan. He denies need for additional resources for SNF or HH or OP PT. States he walks around the [place] [facility] daily and aims to return to his walking routine. and or son will be chair car driver home when medically cleared for DC home.
--- NOTE | 2023-02-22 11:01 | P.CONS_ITS ---
History of Present Illness Consult details Date Patient Seen: 02/22/23 Time Patient Seen: 09:20 Chief complaint: weakness/calcium low [place] Refer T-0 Reason for consult: Left knee swelling Requesting provider: Ramirez Reyes Narrative: Patient is an 82-year-old male that orthopedic surgery was consulted regarding l eft knee pain and swelling. Patient has been admitted to the hospital for a few days for generalized weakness and left knee pain. He states that he is had difficulty with his left knee over the course of the entire summer. He was seen in the ER on November 29 where he had an aspiration was told it was not infection. He is continued to have difficulty with the knee over the summer he got acutely worse a few days ago and he was unable to weightbear and he was feeling generalized weakness. He was sent by his primary care doctor, Dr. Arrieta to the emergency room. Apparently had swelling from the knee down to the left ankle and foot at this time. Another knee aspiration was attempted by the ER was unsuccessful and he was admitted to Medicine for hypo magnesium weakness and knee swelling. He was started on steroids and antibiotics. Labs were obtained. He states he has a history of gout and is taken colchicine in the past. He states when he gets gout knee hurts all the time but this time it only hurts with standing. He states he does feel better today than yesterday. States he was unable to ambulate yesterday but is up moving around with a walker today. But still states it hurts a lot more than it should. He believes the steroids are the only thing that has helped him over the course of the summer and has been on several courses. No strong history of fevers or chills. But does endorse feeling ?weak?. States previous to his knee trouble he was walking 2 miles a day. He notes a history of a right knee replacement. Meds Home Medications and Allergies Home Medications Medication Instructions Recorded Confirmed Type colchicine (gout) 0.6 mg tablet 0.6 mg PO BID 07/26/21 02/20/23 History lisinopril 20 mg tablet 20 mg PO DAILY #90 tabs 08/01/22 02/20/23 Rx simvastatin 40 mg tablet (Zocor) 40 mg PO HS #90 tabs 10/14/22 02/20/23 Rx rabeprazole 20 mg tablet,delayed 20 mg PO DAILY #90 tabs 01/16/23 02/20/23 Rx release (AcipHex) levothyroxine 100 mcg tablet 100 mcg PO DAILY #90 tabs 02/17/23 02/20/23 Rx allopurinol 100 mg tablet 100 mg PO DAILY 02/21/23 02/21/23 History Allergies Allergy/AdvReac Type Severity Reaction Status Date / Time No Known Drug Allergies Allergy Verified 02/20/23 12:27 Review of Systems Review of Systems Narrative: Possible subjective fevers, feels weak, malaise, pain with weight-bearing, swelling of the left knee and leg. Difficulty weight-bearing ROS: Yes All systems reviewed with the patient and are negative except as otherwise documented Exam Vital Signs (past 8 hours): - 02/22/23 06:52 Temperature 98.7 F Pulse Rate 77 Respiratory Rate 18 Blood Pressure 118/72 Pulse Oximetry 95 Oxygen Delivery Method Room Air Oxygen Flow Rate 0 Narrative Exam Narrative: General exam alert and oriented male no acute distress at bedside. Just returning to bed from ambulating to the restroom he is up on the walker. Generally puts weight on his left side. States he was unable to do this yesterday. Heart regular rate and rhythm Lungs clear to auscultation bilaterally No difficulty with moving bilateral upper extremities and the right knee. Right knee with midline scar from previous total knee arthroplasty. Full range of motion no effusion. Calf is soft. Dorsiflexion plantar flexion intact of the right ankle. Left lower extremity demonstrates palpable effusion. Mild warmth. No erythema. Patient is able to extend and flex to 90?. Calf is soft, thigh compartments soft. Mild edema of the ankle demonstrates dorsiflexion plantar flexion. Palpable dorsalis pedis pulse. Extensor mechanism is intact. No bruising. Objective Imaging left knee xray: My impression: Three views of the left knee AP lateral and sunrise demonstrate knee arthritic degenerative changes with subchondral sclerosis and joint space narrowing, nonweightbearing images. Large effusion. No obvious fracture Radiologist's impression: IMPRESSION:??Prominent?effusion.?No?visualized?acute?fracture?or?dislocation.?Ho w ever,?if?clinical?concern?and/or?pain?persist,?short?interval?imaging?followup?i n?7-10?days?is?recommended,?as?occult?injury?cannot?be?definitively?excluded. Dictated?by:?Sandra?Suma,?M.D.?on?02/18/2023?at?11:37? AP pelvis and left hip: My impression: Moderate bilateral hip arthritis no fracture Left ankle x-rays three views: My impression: AP mortise and lateral left ankle nonweightbearing images. No evidence of fracture. No specific bony abnormalities. Labs 02/21/23 05:30 02/22/23 05:50 Labs: Laboratory Results - last 24 hr 02/21/23 02/22/23 02/22/23 16:00 05:50 05:50 Sodium 136 L Potassium 3.9 Chloride 106 Carbon Dioxide 21 L BUN 16 Creatinine 1.37 H Estimated GFR 52 L BUN/Creatinine Ratio 11.7 Glucose 101 Uric Acid Calcium 7.1 L Magnesium 1.8 C-Reactive Protein 30.7 H Procalcitonin Urine Creatinine 02/22/23 02/22/23 02/22/23 05:50 05:50 07:00 Sodium Potassium Chloride Carbon Dioxide BUN Creatinine Estimated GFR BUN/Creatinine Ratio Glucose Uric Acid 3.9 Calcium Magnesium C-Reactive Protein Procalcitonin 0.24 Urine Creatinine 55.3 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 This apparently has been present for months with episodic worsening. Patient has elevated ESR and CRP but looking at the labs this was then e levated all summer. Patient states he is had difficulty with his knee all summer. Has had improvement over the course of his hospitalization. Has received both antibiotics and steroids so it is unclear which is had the most effect. The patient's suspect the steroids have helped him the most. With the length of time of symptoms I also suspect inflammatory cause more than infectious. History of gout states that feels different to him when he has pain with gout it is ?all the time?. Current uric acid is not abnormal 3.9. There was an aspiration from the knee sent for cultures from October that did not show any growth or cells. Had 30,000 cells. No crystals were seen at time. This hospitalization RF factor is 15. ANNETTE is pending Consider repeat aspiration left knee--patient has a large palpable effusion of the left knee today. I have discussed with the patient a knee aspiration. They have consented to the procedure. That will be separately dictated. I was able to withdraw 65 cc of hemosiderin stained serous fluid. No purulence. This was sent for aerobic and anaerobic culture, cell count, Gram stain, crystals, bacterial PCR and was hand delivered to the laboratory by myself. Time Spent With Patient Time with patient: 30 to 49 minutes with 50% spent counseling/coordinating care
[2023-02-22 14:00] VITALS: BP 144/68; PULSE 90; RESP 18; TEMP 37.1; O2SAT 97
[2023-02-22 14:08] LABS: Ionized Calcium < 3.0 mg/dL (4.5-5.6)
[2023-02-22 15:13] LABS: Albumin 3.4 g/dL (3.5-5.0)
--- NOTE | 2023-02-22 15:39 | PM.PROC.1 ---
Procedures Date/Time Date of procedure: 02/22/23 Time of procedure: 15:39 General Procedure description: Left knee joint aspiration Joint Aspiration/Injection Time out performed: Yes Side of body: left Joint aspirated: knee Skin prep: Chlorhexidine Local anesthesia used: lidocaine 1% (5 mL) Amount of anesthesia used (ml): 5 Needle size used: 18G (27 gauge) Fluid obtained: turbid Total fluid obtained (ml): 65 Amount of medication injected (ml): 0 Patient tolerated procedure: well Complications: none Additional comments: 65 mL of blood-tinged synovial fluid obtained. Sent for Gram stain, cell count, crystals, culture, bacterial PCR
[2023-02-22 15:44] LABS: Body Fluid Red Blood Cells 28688 /uL; Body Fluid Tot Nucleated Cells 5500 /uL
[2023-02-22 15:58] LABS: Body Fluid Clotted? NO CLOTS PRESENT; Body Fluid Color RED
[2023-02-22 15:59] LABS: Body Fluid Appearance CLOUDY
--- NOTE | 2023-02-22 16:05 | PC.NURSE ---
@0800 lab called to inform of magnesium urine collection and stated they were bringing a container up to pt's room. Pt and spouse stated that pt had already urinated twice this morning and I educated pt about the need to collect urine for the next 24 hrs to check mag in urine. Pt called appropriately @0905 and stated that he urinated in bottle and allowed us to collect first urine sample. Spouse has been helpful by requesting ice when bucket of ice has become melted.
[2023-02-22 16:06] LABS: Mononuclear WBC Body Fluid 10 %; Polynuclear WBC Body Fluid 90 %
[2023-02-22 16:35] LABS: Crystals Body Fluid - IN-HOUSE NONE Present
[2023-02-22] MEDS: MAGNESIUM OXIDE 400 MG TABLET PO (17:29)
[2023-02-22 18:00] VITALS: BP 130/66; PULSE 84; RESP 18; TEMP 36.5; O2SAT 95
[2023-02-22] MEDS: ATORVASTATIN 20 MG TABLET 40 MG PO (20:18)
[2023-02-22] MEDS: VANCOMYCIN 1,250 MG/250 ML PIGGYBACK 250 MG IV (20:18)
[2023-02-22 21:00] VITALS: BP 129/67; PULSE 82; RESP 17; TEMP 36.8; O2SAT 96
[2023-02-23 05:00] VITALS: BP 136/64; PULSE 80; RESP 17; TEMP 36.9; O2SAT 95
[2023-02-23] MEDS: LEVOTHYROXINE 100 MCG TABLET PO (05:58)
[2023-02-23 06:45] LABS: Add Manual Diff / Slide Review NO; Basophils Absolute Auto 100 /uL (0-100); Eosinophils Absolute Auto 200 /uL (0-450); Eosinophils Percent Auto 2.8 % (2-4); Hematocrit 32.8 % (41-53); Hemoglobin 10.8 g/dL (13.5-17.5); Lymphocytes Absolute Auto 1100 /uL (1100-4500); Mean Corpuscular Hemoglobin 27.5 PG (26-34); Mean Corpuscular Volume 83.5 fL (80-100); Monocytes Absolute Auto 500 /uL (0-900); Monocytes Percent Auto 8.7 % (3-14); Neutrophils Absolute Auto 4100 /uL (1500-7000); Neutrophils Percent Auto 68.5 % (50-75); Platelet Count 350 X10^3/uL (150-400); Red Blood Cell Count 3.92 X10^6/uL (4.5-5.9); Red Cell Distribution Width 17.9 % (11.6-14.8)
[2023-02-23 07:07] LABS: BUN Creatinine Ratio 13.6 (6-22); Blood Urea Nitrogen 18 mg/dL (9-20); Calcium 8.2 mg/dL (8.4-10.2); Carbon Dioxide 18 mmol/L (22-32); Chloride 105 mmol/L (98-107); Estimated Glomerular Filt Rate 54 mL/min (>60); Glucose 102 mg/dL (80-110); HEMOLYSIS < 15 (0-50); Magnesium 1.8 mg/dL (1.6-2.3); Potassium 4.3 mmol/L (3.4-5.1); Sodium 134 mmol/L (137-145)
[2023-02-23 07:18] LABS: C-Reactive Protein Quant 24.9 mg/dL (<1.0)
[2023-02-23 07:43] LABS: Prostate Specific Antigen 9.66 ng/mL (0.10-4.00)
[2023-02-23] MEDS: SODIUM CHLORIDE 0.9% FLUSH 10 ML IV (08:30)
[2023-02-23] MEDS: MAGNESIUM SULFATE 2 GM/50 ML PIGGYBACK IV (08:30)
[2023-02-23] MEDS: HEPARIN 5,000 UNIT/ML VIAL 5000 UNIT SUBCUT (08:30)
[2023-02-23] MEDS: MAGNESIUM OXIDE 400 MG TABLET PO (08:31)
[2023-02-23] MEDS: CALCIUM CARBONATE 500 MG TAB PO ×2 (08:31→12:43)
[2023-02-23] MEDS: allopurinoL 100 MG TABLET PO (08:31)
[2023-02-23] MEDS: ASPIRIN EC 81 MG TABLET PO (08:31)
[2023-02-23] MEDS: metroNIDAZOLE 500 MG TABLET PO (08:31)
--- NOTE | 2023-02-23 08:51 | PM.PN.1 ---
Subjective Subjective Date Patient Seen: 02/23/23 Time Patient Seen: 08:56 Interval history: 82-year-old male with left knee pain several months with elevated inflammatory markers. Eating breakfast in bed today. Knee feeling better still stiff. No fevers or chills. Had left knee aspiration yesterday. 65 cc blood-tinged synovial fluid drained Expresses desire to go home today Exam Vital Signs (past 8 hours): - 02/23/23 05:00 Temperature 98.5 F Pulse Rate 80 Respiratory Rate 17 Blood Pressure 136/64 Pulse Oximetry 95 Oxygen Flow Rate 0 Oxygen Delivery Method Room Air Oxygen Flow Rate 0 Narrative Exam Narrative: Alert oriented no acute distress Lying in bed eating breakfast Breathing unlabored on room air Speaks in complete sentences Left lower extremity mild warmth minimal swelling around the knee. Notable improvement in effusion from yesterday prior to aspiration Demonstrates dorsiflexion plantar flexion. Limited knee range of motion but demonstrates active flexion and extension. Compartments soft. Sensation intact, brisk capillary refill Objective Labs 02/23/23 06:15 02/23/23 06:15 Labs: Laboratory Results - last 24 hr 02/22/23 02/22/23 02/22/23 05:50 05:50 14:15 WBC RBC Hgb Hct MCV MCH MCHC RDW Plt Count Neut % (Auto) Lymph % (Auto) [place] % (Auto) Eos % (Auto) Baso % (Auto) Neut # (Auto) Lymph # (Auto) [place] # (Auto) Eos # (Auto) Baso # (Auto) Sodium Potassium Chloride Carbon Dioxide BUN Creatinine Estimated GFR BUN/Creatinine Ratio Glucose Calcium Magnesium C-Reactive Protein 30.7 H Albumin 3.4 L Prostate Specific Ag Procalcitonin 0.24 Fluid Color Fluid Appearance Fluid RBC Fld Tot Nucleated Cell Fluid Polynuclear WBCs Fluid Mononuclear WBCs Fluid Eosinophils Fluid Other Cells Fluid Crystals Body Fluid Clot 02/22/23 02/22/23 02/23/23 15:16 15:16 06:15 WBC RBC Hgb Hct MCV MCH MCHC RDW Plt Count Neut % (Auto) Lymph % (Auto) [place] % (Auto) Eos % (Auto) Baso % (Auto) Neut # (Auto) Lymph # (Auto) [place] # (Auto) Eos # (Auto) Baso # (Auto) Sodium Potassium Chloride Carbon Dioxide BUN Creatinine Estimated GFR BUN/Creatinine Ratio Glucose Calcium Magnesium C-Reactive Protein Albumin Prostate Specific Ag 9.66 H Procalcitonin Fluid Color Red Fluid Appearance [place] [address] Fld Tot Nucleated Cell 5500 Fluid Polynuclear WBCs 90 Fluid Mononuclear WBCs 10 Fluid Eosinophils Not Reportable Fluid Other Cells Not Reportable Fluid Crystals None present Body Fluid Clot No clots present 02/23/23 02/23/23 02/23/23 06:15 06:15 06:15 WBC 6.0 RBC 3.92 L Hgb 10.8 L Hct 32.8 L MCV 83.5 MCH 27.5 MCHC 33.0 RDW 17.9 H Plt Count 350 Neut % (Auto) 68.5 Lymph % (Auto) 19.0 L [place] % (Auto) 8.7 Eos % (Auto) 2.8 Baso % (Auto) 1.0 Neut # (Auto) 4100 Lymph # (Auto) 1100 [place] # (Auto) 500 Eos # (Auto) 200 Baso # (Auto) 100 Sodium 134 L Potassium 4.3 Chloride 105 Carbon Dioxide 18 L BUN 18 Creatinine 1.32 H Estimated GFR 54 L BUN/Creatinine Ratio 13.6 Glucose 102 Calcium 8.2 L Magnesium 1.8 C-Reactive Protein 24.9 H Albumin Prostate Specific Ag Procalcitonin Fluid Color Fluid Appearance Fluid RBC Fld Tot Nucleated Cell Fluid Polynuclear WBCs Fluid Mononuclear WBCs Fluid Eosinophils Fluid Other Cells Fluid Crystals Body Fluid Clot synovial fluid analysis consistent with inflammatory cause. Total cells 5500. No organisms and Gram stain. No crystals. 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 No crystals no signs of acute gout. Cell count only 5500 consistent with inflammation. Unlikely to be infection. Bacterial PCR will take a week to return but at this point I would recommend discontinuation of antibiotics. Can consider oral steroid taper and I would be happy see patient in my office as an outpatient to consider intra-articular corticosteroid injection and will get weight-bearing x-rays of his left knee. Patient should be recommended for outpatient rheumatology consultation and workup due to his increased inflammatory markers over the course of several months and recurrent knee effusions likely more than just worsening arthritis due to these chronic levels of increased inflammatory markers. But synovial fluid analysis is reassuring for infection rule out thus far Time Spent With Patient Time with patient: less than 30 minutes Quality VTE Deep Vein Thrombosis/Pulmonary Embolism Present on Admission: No
[2023-02-23 09:00] VITALS: BP 134/80; PULSE 97; RESP 17; TEMP 36.2; O2SAT 97
[2023-02-23 09:06] LABS: Parathyroid Hormone, Intact 32 pg/mL (15-65)
--- NOTE | 2023-02-23 11:11 | PT.IPTN ---
Current Diagnoses Other chronic pain (02/20/23) Effusion, left knee (02/20/23) Pain in left knee (02/20/23) Physical Therapy Treatment Note M2 PT-IP Current Condition Start: 02/20/23 15:04 Freq: Status: Active Protocol: Document 02/20/23 15:43 SAK (Rec: 02/20/23 15:56 SAK [id number]) Physical Therapy Current Condition Current Condition Evaluation Date 02/20/23 Treatment Diagnosis weakness, left knee pain Onset Date 02/20/23 M3 PT-IP Subjective Start: 02/20/23 15:04 Freq: Status: Active Protocol: Document 02/23/23 11:12 KS (Rec: 02/23/23 12:06 KS [id number]) Subjective Physical Therapy Visit Type Type Treatment Note Visit Start Time 10:50 Visit Stop Time 11:11 Total Visit Minutes 21 Notes Family present Number of CASE MANAGEMENT MANAGER Visits 3 Physical Therapy Visit Comments Patient Comments Pt eager to return home, family present for caregiver training. M4 PT-IP Mobility and Gait Start: 02/20/23 15:04 Freq: Status: Active Protocol: Document 02/23/23 11:12 KS (Rec: 02/23/23 12:06 KS [id number]) PT-Bed Mobility Assessment Supine to Sit Supine to Sit Standby Assistance,Bedrails Scooting Scooting to Edge of Bed Standby Assistance PT-Transfer Assessment Sit to and From Stand Sit to and from Stand Contact Guard Assistance,Use of Upper Extremities Equipment Transfer Assistive Device Gait Belt,Front Wheeled Walker Transfers Transfer Destination Bed Transfer Technique ambulated Transfer Ability Level of Assist Contact Guard Assistance Comments Mobility Comments Pt in bed, family present for caregiver training. SBA for sup<>sit and scooting EOB. CGA for sit<>stand w/ FWW, able to assist. Pt ambulated ~ 35 ft w/ FWW SBA and returned to bed SBA. Discussed at home safety, gait belt, proper assistance techniques, pt and famiyl feel safe and ready to return home. Gait Assessment Gait Gait Assistance Required: Standby Assistance Distance (Feet) 35 Able to Maintain Weight Bearing Status No During Gait Assistive Devices Assistive Device Gait Belt,Front Wheeled Walker Gait Deviations General Gait Pattern Antalgic,Decreased Stride Length,Decreased Feet Clearance,Step-to Gait Factors Limiting Gait Function Factors Limiting Gait Function Decreased Activity Tolerance, Decreased Strength,Difficulty Following Directions,Limited Range of Motion,Pain,Poor Balance,Poor Safety Awareness Comments Gait Comments See mobility comments. Stair Climbing Assessment Comments Stair Climbing Comments no stairs has ramp PT-Balance Assessment Sitting Balance and Reactions Static Sitting Balance Ability Good Dynamic Sitting Balance Ability Good Standing Balance and Reactions Static Standing Balance Ability Fair Dynamic Standing Balance Ability Fair Device Used FWW M5 PT-IP Objective Assessments Start: 02/20/23 15:04 Freq: Status: Active Protocol: Document 02/20/23 15:43 SAK (Rec: 02/20/23 15:56 [facility] [id number]) Orientation Orientation/Cognition Level of Alertness Alert Orientation Name,Age,Situation Safety Awareness Understands Safety Issues Gross Range of Motion Upper Extremity ROM Assessment Within Functional Limits Lower Extremity ROM Assessment Left Impaired Impairments due to pain Strength Upper Extremity Strength Assessment Within Functional Limits Comments Strength Comments right LE WNL hip and knee. Ankle 3-/5 with moderate swelling Left LE; unable to lift leg in sitting or supine, unable to move to side 0/5. Knee 3-/5 due to pain, ankle 3-/5. M6 PT-IP Treatment Start: 02/20/23 15:04 Freq: Status: Active Protocol: Document 02/23/23 12:06 KS (Rec: 02/23/23 12:06 KS [id number]) Physical Therapy Treatment Education Education Provided Safety M7 PT-IP Assessment and Plan Start: 02/20/23 15:04 Freq: Status: Active Protocol: Document 02/23/23 11:12 KS (Rec: 02/23/23 12:06 KS [id number]) PT Summary Assessment and Plan Potential Rehabilitation Potential Fair Summary Impairments Pain,ROM,Strength,Transfers, Gait,Activity Tolerance Progress Towards Goals Progressing Toward Goals Assessment Summary Pt continues to progress w/ mobility, limited by pain and reported vertigo. Able to complete caregiver training w/ pts famiyl who feel comfortable and ready to assist pt at home. He would benefit from HHPT and then OPPT to treat vertigo. Goals Bed Mobility Goal Independent Transfer Goal Independent Gait Goal Independent Gait Distance 50 Days to Meet Goals 7 Frequency of Treatment Frequency Of Treatment Once a Day Treatment Plan Physical Therapy Treatment Plan Bed Mobility Training,Transfer Training,Gait Training, Therapeutic Exercise,Discharge Planning Weight Bearing Status Weight Bearing Status Full Weight Bearing Recommendations To Nursing Amount of Assist Needed 1 Person Assist Discharge Recommendations PT Discharge Recommendations Home with Assistance,Home Health Transportation Needs at Discharge Private Vehicle
--- NOTE | 2023-02-23 11:24 | CM.DPC ---
DCP Continued: WIRE MACHINE CUTTER reviewed EMR. Per hospitalist, likely to d/c today. Would benefit from HH services. WIRE MACHINE CUTTER entered room and introduced self and role. Patient resting and appeared A/Ox4 and accompanied by multiple family members at bedside. Reports being open to HH services, requested [facility]. No other needs at this time. WIRE MACHINE CUTTER placed verbal read back order to consult to HH. Per WORK DISTRIBUTOR, could benefit from HH services for PT. WIRE MACHINE CUTTER completed Face to face. WIRE MACHINE CUTTER called [facility] and spoke with answering services. They agreed to review. WIRE MACHINE CUTTER faxed face to face to [facility]. Plan: d/c home when medically stable, likely today. transport with family in POV. [facility] to review. CM team will continue to follow as needed. VINEET Schuler
--- NOTE | 2023-02-23 13:37 | PM.DS.1 ---
History of Present Illness History of Present Illness Date Patient Seen: 02/20/23 Time Patient Seen: 11:30 Chief complaint: weakness/calcium low [place] Refer T-0 Narrative: This is an 82 year old male with PMH of gout, BPH, HTN, HLD, CKD stage III who presents with worsening weakness over the past 3 weeks. He has been on and off of steroids, with 3 rounds recently for left knee symptoms consistent with gout. His swelling has gone away with each round of therapy. He was seen in the ER two days ago with L knee pain, his calcium at that time was also noted to be 5.6 PTH was 18. He has no history of thyroid surgery. He has no difficulty with movement of his R leg, but has fairly marked weakness of his left leg. He has pain in his knee, but also his left ankle with swelling and reported numbness on the bottom of his left foot. He denies back pain, urinary or stool incontinence. In the ER, labs notable for calcium of 6.5 (albumin 3.7), corrected to 6.7. Phos of 3.6 (normal) and Mg 0.4. Ionized calcium is pending. PTH was resent. Creatinine was 1.42 consistent with prior values. He has a mild leukocytosis and mild, but chronic and stable anemia with Hg 11.7. He was seen by PT whom recommended SNF in the ER, but with unilateral weakness on the L it is not clear if his mobility and weakness is due to his electrolyte abnormalities at this time. Please see below for further evaluation recommendations. H&P: In brief this 82 y/o M presented with right lower ext pain and generalizes weakness. He has hx of gout and has received outpt treatment including steroids but continued to have symmptosm. I the ED he was also found to have hypomag and hypokalemia whih were replaced. His w/u included mri of spine and us of the leg r/o dvt which were negative. I requested synovial tap of the knee to r/o septic arthritis but ED MD said she attempted but it faied and she thinks there is not enough fluid.? Pt reportedly can not walk safely due to pain. Discharge Providers Provider Date of admission: 02/20/23 21:43 Discharge Date: 02/23/23 Primary care physician: Rito Arrieta MD Consults: 02/20/23 14:37 Consult to Physical Therapy Evaluate & Treat Comment: Physician Instructions: Evaluate and Treat 02/21/23 10:20 Consult to Occupational Therapy Evaluate & Treat Comment: Physician Instructions: Evaluate and treat 02/22/23 09:16 Consult to Orthopedic Surgery Routine Comment: Consulting Provider: Chela Medrano Reason for consultation: possible septic joint? Has provider been notified: Yes 02/23/23 11:43 Consult to Home Health Routine Comment: Reason For Exam: nursing/PT Discharge provider: Ramirez Reyes DO Summary Hospital Course Discharge Diagnosis: (1) Effusion of left knee: ?Status:?Chronic Assessment & Plan narrative: 1. Questionable inflammatory arthritis -negative for DVT, no acute pathology in MRI of L spine, multiple xrays done of left foot, ankle and hip with no acute process -CT head with no acute process -weakness started at least 5 days ago, well outside any window if this is CVA -symptoms do not fit with a gout flare -will continue allopurinol, but hold off any treatment for acute gout flare -last tap of left knee in our records was in October 2022 and showed no crystals -CRP elevated to 36.9, ESR 71, RF 15, ANNETTE negative -suggest referral from PCP to rheum -Dr. Medrano ortho consulted and tapped left knee, getting 65mL of red cloudy fluid. This is sent for gram stain, culture, crystals and cell count and all were negative. -continue broad spectrum abx, febrile overnight on , blood cultures negative 2. Hypoparathyroidism and hypocalcemia ?- patient has low calcium and innappropriately normal PTH on labs with level barely above normal lower limit. ?- will replete calcium as needed ?- EKG is normal sinus with normal intervals. ?- etiology is not clear, CT abdomen says mild posterior prominence of prostate, otherwise normal ?- started daily calcium supplement 3. Hypomagnesemia -Mg 0.4. He has been ordered for 4g of magnesium. No EKG changes as noted above -again etiology is not quite clear to me, possibly related to diet, CT abdomen ordered -magnesium has already been replaced, will order urine mag/creatinine to eval further in am, but perhaps results not interpretable since magnesium is improved -start daily mag supplement 4. Hypothyroidism ?- continue home levothyroixine 100 mcg 5. HLD ?- continue home statin Hospital Course: Admitted for L knee and ankle pain with swelling with concern for gout vs arthritis vs septic joint. Tapped by ortho and was negative for crystals or infection. CRP and ESR very high suggesting possible autoimmune inflammatory arthritis. Symptoms improved with steroids. Ortho rec rheum referral and PCP will place one to Dr. Patrick at [facility]. Put on prednisone taper to last until then. Exam Vital Signs (past 8 hours): - 02/23/23 09:00 Temperature 97.2 F L Pulse Rate 97 H Respiratory Rate 17 Blood Pressure 134/80 Pulse Oximetry 97 Oxygen Flow Rate 0 Oxygen Delivery Method Room Air Oxygen Flow Rate 0 Narrative Exam Narrative: Alert oriented no acute distress Lying in bed eating breakfast Breathing unlabored on room air Speaks in complete sentences Left lower extremity mild warmth minimal swelling around the knee. Notable improvement in effusion from yesterday prior to aspiration Demonstrates dorsiflexion plantar flexion. Limited knee range of motion but demonstrates active flexion and extension. Compartments soft. Sensation intact, brisk capillary refill Objective Labs 02/23/23 06:15 02/23/23 06:15 Labs: Laboratory Results - last 24 hr 02/20/23 02/22/23 02/22/23 14:11 14:15 15:16 WBC RBC Hgb Hct MCV MCH MCHC RDW Plt Count Neut % (Auto) Lymph % (Auto) [place] % (Auto) Eos % (Auto) Baso % (Auto) Neut # (Auto) Lymph # (Auto) [place] # (Auto) Eos # (Auto) Baso # (Auto) Sodium Potassium Chloride Carbon Dioxide BUN Creatinine Estimated GFR BUN/Creatinine Ratio Glucose Calcium Magnesium C-Reactive Protein Albumin 3.4 L Prostate Specific Ag PTH Intact 32 PTH Intact Intraop Comment Fluid Color Fluid Appearance Fluid RBC Fld Tot Nucleated Cell Fluid Polynuclear WBCs Fluid Mononuclear WBCs Fluid Eosinophils Fluid Other Cells Fluid Crystals None present Body Fluid Clot 02/22/23 02/23/23 02/23/23 15:16 06:15 06:15 WBC RBC Hgb Hct MCV MCH MCHC RDW Plt Count Neut % (Auto) Lymph % (Auto) [place] % (Auto) Eos % (Auto) Baso % (Auto) Neut # (Auto) Lymph # (Auto) [place] # (Auto) Eos # (Auto) Baso # (Auto) Sodium Potassium Chloride Carbon Dioxide BUN Creatinine Estimated GFR BUN/Creatinine Ratio Glucose Calcium Magnesium 1.8 C-Reactive Protein 24.9 H Albumin Prostate Specific Ag 9.66 H PTH Intact PTH Intact Intraop Fluid Color Red Fluid Appearance Cloud[place] 42552 Fld Tot Nucleated Cell 5500 Fluid Polynuclear WBCs 90 Fluid Mononuclear WBCs 10 Fluid Eosinophils Not Reportable Fluid Other Cells Not Reportable Fluid Crystals Body Fluid Clot No clots present 02/23/23 02/23/23 06:15 06:15 WBC 6.0 RBC 3.92 L Hgb 10.8 L Hct 32.8 L MCV 83.5 MCH 27.5 MCHC 33.0 RDW 17.9 H Plt Count 350 Neut % (Auto) 68.5 Lymph % (Auto) 19.0 L [place] % (Auto) 8.7 Eos % (Auto) 2.8 Baso % (Auto) 1.0 Neut # (Auto) 4100 Lymph # (Auto) 1100 [place] # (Auto) 500 Eos # (Auto) 200 Baso # (Auto) 100 Sodium 134 L Potassium 4.3 Chloride 105 Carbon Dioxide 18 L BUN 18 Creatinine 1.32 H Estimated GFR 54 L BUN/Creatinine Ratio 13.6 Glucose 102 Calcium 8.2 L Magnesium C-Reactive Protein Albumin Prostate Specific Ag PTH Intact PTH Intact Intraop Fluid Color Fluid Appearance Fluid RBC Fld Tot Nucleated Cell Fluid Polynuclear WBCs Fluid Mononuclear WBCs Fluid Eosinophils Fluid Other Cells Fluid Crystals Body Fluid Clot 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 I've started you on a prednisone taper. Please get a referral for rheumatology at [facility] with Dr. Moriah Patrick. Discharge orders & Medications Prescriptions: New prednisone 10 mg tablet See Rx Instructions .ROUTE .COMPLEX Qty: 147 0RF Rx Instructions: 60 mg (6 pills) daily for 1 week, then taper by subtracting 1 pill per week over 6 weeks until pills run out (ex. 5 pills x1 wk, 4 pills x1 week, 3 pills x1 wk, etc.) Continued lisinopril 20 mg tablet 20 mg PO DAILY Qty: 90 3RF simvastatin [Zocor] 40 mg tablet 40 mg PO HS Qty: 90 3RF Rx Instructions: This script replaced the 14 day supply. Thank you! rabeprazole [AcipHex] 20 mg tablet,delayed release (/EC) 20 mg PO DAILY Qty: 90 3RF levothyroxine 100 mcg tablet 100 mcg PO DAILY Qty: 90 3RF allopurinol 100 mg tablet 100 mg PO DAILY colchicine (gout) 0.6 mg tablet 0.6 mg PO BID Follow up/Referrals: Rito Arrieta MD [Primary Care Provider] - 2 Weeks Visit Report/Discharge Packet Instructions: Prednisone Stand Alone Forms: Patient Portal/API, Stroke Signs & Symptoms Discharge Data Primary Care Provider: Rito Arrieta V Discharges patient from system. Discharge Date/Time: 02/23/23 16:00 Quality VTE Deep Vein Thrombosis/Pulmonary Embolism Present on Admission: No
[2023-02-24 09:42] LABS: Calcium 6.3
--- NOTE | 2023-02-24 11:06 | CM.DPC ---
DCP Cont: Patient discharged home yesterday, it is noted by Meaghan MANLEY, that [facility] was ordered, pending to see if [facility] could accept. Onelia, assisted living assistant, did contact [facility], he indicated that he could take patient, just needed order. Went ahead and placed home health order for RN, and P.T, face to face was completed by Meaghan. Onelia will update [facility] that order is in. P: Patient discharged home with [facility], RN, and P.T. Kym Castro RN/Hog Man
[2023-02-25 10:44] LABS: Magnesium, Urine 1.5 mg/dL (Not Estab.)
[2023-02-25 15:34] LABS: ANA Screen, IFA Negative (.)
== END 2023-02-23 16:00 | disposition home or self-care (01) | DRG 554 ==
LOC: ED 18:03 → AC 22:24
PROVIDERS: Emergency Medicine; Internal Medicine; Orthopaedic Surgery Foot and Ankle Surgery; Student in an Organized Health Care Education/Training Program; Admitting Provider Hospitalist; Emergency Provider Emergency Medicine; PCP Internal Medicine; Referring Provider Emergency Medicine; Visit Provider Hospitalist
DX: M17.11 Unilateral primary osteoarthritis, right knee (principal); M25.462 Effusion, left knee; E83.51 Hypocalcemia; E83.42 Hypomagnesemia; E78.5 Hyperlipidemia, unspecified; E03.9 Hypothyroidism, unspecified; M10.9 Gout, unspecified; I10 Essential (primary) hypertension; Z87.891 Personal history of nicotine dependence; M25.562 Pain in left knee; E83.39 Other disorders of phosphorus metabolism
CPT/HCPCS: 20610; 36415; 36592; 70450; 72148; 73502; 73562; 73610; 73620; 74176; 80048; 80053; 82040; 82306; 82310; 82330; 82570; 83735; 83970; 84100; 84145; 84153; 84443; 84550; 85025; 85651; 86038; 86140; 86430; 87040; 87070; 87075; 87205; 87801; 89051; 89060; 93005; 93971; 96365; 96375; 97110; 97116; 97162; 97530; 99284; J0612; J0692; J1170; J1644; J2060; J2543; J3475

== ENCOUNTER → 2023-02-25 16:58 | Outpatient (CLI) | payer MEDICARE, OTHER, SELFPAY ==
[2023-02-20 22:15] VITALS: BMI 26.9
[2023-02-25 17:38] LABS: Appearance Urine UA CLEAR; Bilirubin Urine UA NEGATIVE (NEGATIVE); Color Urine UA YELLOW; Glucose Urine UA NEGATIVE (Negative); Ketones Urine UA NEGATIVE (NEGATIVE); Leukocyte Esterase Urine UA NEGATIVE (NEGATIVE); Nitrite Urine UA NEGATIVE (Negative); Occult Blood Urine UA TRACE-INTACT (Negative); Protein Urine UA 1+ (Negative); Urobilinogen Urine UA 0.2 E.U./dL (0.2); pH Urine UA 5.5 (4.5-8.0)
[2023-02-25 17:45] LABS: Bacteria Urine None Seen; Culture Indicated Urine Cult Not Indicated; RBC Urine 0-1/HPF (0-5/HPF); Squamous Epithelial Cell Urine 0-1 /HPF (0-5/HPF); WBC Urine 0-1/HPF (0-5/HPF)
[2023-02-27 10:07] LABS: PSA, Total 12.7 ng/mL (0.0-4.0)
== END ==
PROVIDERS: PCP Internal Medicine; Referring Provider Urology; Visit Provider Urology
DX: R97.20 Elevated prostate specific antigen [PSA] (principal)
CPT/HCPCS: 36415; 81001; 84153; 84154

== ENCOUNTER → 2023-03-24 07:01 | Outpatient (CLI) | payer MEDICARE, OTHER, SELFPAY ==
[2023-02-20 22:15] VITALS: BMI 26.9
--- NOTE | 2023-03-24 07:11 | DI.MRI.S_ITS ---
PROCEDURE: MR PELVIC PROSTATE PROTOCOL INDICATIONS: Elevated and rising PSA TECHNIQUE: Coronal HASTE, axial T1 FSE with fat saturation, 3-plane nonbreath-hold T2 FSE. After the administration of contrast, dynamic axial, delayed axial and coronal VIBE or 2-D FLASH with fat saturation through the pelvis. Optional diffusion weighted imaging and ADC may be performed. COMPARISON: [facility], MR, MR PELVIS WO/W CON, 08/03/2021, 11:44. FINDINGS: Image quality: Diffusion weighted and dynamic contrast enhanced images are diagnostic. Prostate: Gland size is 5.2 x 4.5 x 5.7 cm; ellipsoid gland volume is 69 mL. Lesion #1: Size: 1.5 x 0.7 cm. Previously 1.3 x 0.8 cm not significantly changed Location: Left anterior peripheral zone, gland apex (for example series 23, image 69). T2 signal: Heterogeneous signal intensity DWI/ADC signal: Marked DWI hyperintensity, mild ADC hypointensity DCE: Positive KENNEDY: No large volume bulky extraprostatic extension. However there is long segment abutment of the lesion against the prostate pseudocapsule, difficult to exclude early extraprostatic extension. Seminal vesicle invasion: Negative PI-RADS: T2 signal - 3; ADC - 3; DCE - positive; Overall score: PI-RADS 4. Previously described lesion at the right apex transition zone has an appearance suggestive of a BPH nodule, PI-RADS 2. Genitourinary system: Bladder wall thickness is normal. Distal ureters are non distended. Bowel and peritoneum: No pathologic free pelvic fluid. Inferior colon and small bowel loops are normal in caliber. Nodes and vessels: No pelvic or inguinal adenopathy by size criteria. Iliac vessels are normal in caliber. Bones: Marrow demonstrates normal overall signal, without lesions to suggest metastases. IMPRESSION: 1. A 1.5 cm lesion at the left anterior peripheral zone, gland apex, is consistent with PI-RADS category 4. 2. No suspicious lymph nodes identified in the imaged pelvis. Dictated by: Rubens Brown M.D. on 03/24/2023 at 14:26 Approved by: Rubens Brown M.D. on 03/24/2023 at 14:48
== END ==
PROVIDERS: PCP Internal Medicine; Referring Provider Urology; Visit Provider Urology
DX: N42.9 Disorder of prostate, unspecified (principal); R97.20 Elevated prostate specific antigen [PSA]
CPT/HCPCS: 72197; A9579

== ENCOUNTER 2023-04-18 12:19 | Emergency (ER) | payer MEDICARE, OTHER, SELFPAY ==
[2023-02-20 22:15] VITALS: BMI 26.9
[2023-04-18] VITALS (9 sets, daily range): BP systolic 110–124; BP diastolic 61–67; PULSE 74–104; RESP 16–25; TEMP 36.6; O2SAT 96–98; BMI 27.2
--- NOTE | 2023-04-18 12:37 | DI.RAD.S_ITS ---
PROCEDURE: XR CHEST 1V INDICATIONS: chest pain TECHNIQUE: One view of the chest was acquired. COMPARISON: [facility], , XR CHEST 1V, 10/31/2018, 20:20. [facility], , CHEST 1 VIEW, 02/22/2017, 13:30. FINDINGS: Surgical changes and devices: None. Lungs and pleura: Lungs are clear considering reduced inspiratory volume. No pleural effusions or pneumothorax. Mediastinum: Mediastinal contours appear normal. Heart size is normal. Bones and chest wall: No suspicious bony lesions. Overlying soft tissues appear unremarkable. IMPRESSION: Reduced inspiratory volume, no definite acute abnormality is seen when this is taken into account. Dictated by: Ron Nichole M.D. on 04/18/2023 at 13:47 Approved by: Ron Nichole M.D. on 04/18/2023 at 13:48
--- NOTE | 2023-04-18 12:53 | ED.GENADULT ---
HPI - General Adult General Chief complaint: Dizziness Stated complaint: dizzy/SOB Time Seen by Provider: 04/18/23 12:44 Source: patient and family Mode of arrival: Ambulatory Limitations: no limitations History of Present Illness HPI narrative: Patient is an 82-year-old male. For the past 5 days he has noticed episodes where he is getting very dizzy specifically with standing. His symptoms essentially resolved when he is lying down. At the time he is not having any chest pain. He is having some shortness of breath but that is not necessarily associated with the dizziness. Shortness of breath has been going on for the past couple weeks. No sinus congestion, sore throat, fullness in his ears. He gets some nausea with the dizziness. He does describe it as a room spinning sensation. He is also having some tingling in his left arm. That symptom is not associated with the dizziness or the shortness of breath. Related Data Home Medications Medication Instructions Recorded Confirmed colchicine 0.6 mg tablet 0.6 mg PO BID 07/26/21 04/03/23 allopurinol 100 mg tablet 100 mg PO DAILY 02/21/23 04/03/23 Previous Rx's Medication Instructions Recorded lisinopril 20 mg tablet 20 mg PO DAILY #90 tabs 08/01/22 simvastatin 40 mg tablet (Zocor) 40 mg PO HS #90 tabs 10/14/22 rabeprazole 20 mg tablet,delayed 20 mg PO DAILY #90 tabs 01/16/23 release (AcipHex) levothyroxine 100 mcg tablet 100 mcg PO DAILY #90 tabs 02/17/23 prednisone 10 mg tablet See Rx Instructions .Route 02/23/23 .COMPLEX #147 tabs levofloxacin 500 mg tablet 500 mg PO DAILY #3 tabs 04/09/23 Allergies Allergy/AdvReac Type Severity Reaction Status Date / Time No Known Drug Allergies Allergy Verified 04/18/23 12:29 Review of Systems Constitutional Constitutional: Reports system reviewed and no additional complaints, except as documented Cardiovascular Cardiovascular: Reports system reviewed and no additional complaints, except as documented Respiratory Respiratory: Reports system reviewed and no additional complaints, except as documented Gastrointestinal Gastrointestinal: Reports system reviewed and no additional complaints, except as documented Integumentary/Breasts Skin/Breast: Reports system reviewed and no additional complaints, except as documented Neurologic Neurologic: Reports system reviewed and no additional complaints, except as documented Hematologic/Lymphatic On Anticoagulants: No Patient History Medical History Abnormal findings on imaging test Bladder outlet obstruction Overweight Erectile dysfunction BPH w urinary obs/LUTS Acquired hypothyroidism Stage 3b chronic kidney disease (CKD) Mixed hyperlipidemia Essential hypertension Abnormal prostate by palpation Elevated PSA History of arthritis Gout Surgical History Hx of cholecystectomy Hx of appendectomy Family History Father Cancer Mother Hyperlipidemia Hypertension Gout 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), 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 household members: spouse Smoking Status: Former smoker Tobacco: How many years used: 35 alcohol intake: current Type(s) of exercise: independent ambulation frequency: daily duration: > 90 minutes/day Smoking Status: Former smoker alcohol intake frequency: holidays/special occasions only Substance Use Type: does not use Exam Initial Vital Signs Initial Vital Signs: Vital Signs Temperature 97.9 F 04/18/23 12:22 Pulse Rate 104 H 04/18/23 12:22 Respiratory Rate 18 04/18/23 12:22 Blood Pressure 115/67 04/18/23 12:22 Pulse Oximetry 98 04/18/23 12:22 Oxygen Delivery Method Room Air 04/18/23 12:22 HENMT Head: normal to inspection Ears: TM's normal bilaterally Resp Effort & Inspection: normal respiratory effort Auscultation: clear to auscultation bilaterally Cardio Rate: regular rate Rhythm: regular rhythm GI Inspection: normal to inspection and non-distended Skin General: no rashes or lesions noted Neuro General: patient alert, patient awake and moves all extremities Extrem General: No edema Course Orders Ordered: ED Orders 04/18/23 12:37 XR chest 1V Stat 04/18/23 12:42 EKG-12 Lead Stat 04/18/23 12:59 Complete Blood Count AUTO DIFF Stat Comprehensive Metabolic Panel Stat D Dimer Stat Lipase Stat Magnesium Stat PTT Partial Thromboplastin Rock Stat Prothrombin Time INR Stat Troponin & CK Cardiac Panel Stat 04/18/23 14:06 CT angio chest PE protocol Stat Discontinued Medications Aspirin (Aspirin 81 Mg Chew Tab) 324 mg PO NOW ONE Stop: 04/18/23 12:38 Last Admin: 04/18/23 14:17 Dose: Not Given Documented By: YOLANDA Magnesium Sulfate (Magnesium Sulfate) 2 gm in 50 mls @ 25 mls/hr IV NOW ONE Stop: 04/18/23 15:28 Last Infusion: 04/18/23 15:45 Dose: Infused Documented By: JULY Co-signed By: GRICEL Admin: 04/18/23 13:42 Dose: 25 mls/hr Documented By: YOLANDA Co-signed By: GRICEL Calcium Gluconate 9.3 meq/ (Sodium Chloride) 70 mls @ 140 mls/hr IV NOW ONE Stop: 04/18/23 15:04 Last Infusion: 04/18/23 16:01 Dose: Infused Documented By: Admin: 04/18/23 15:20 Dose: 140 mls/hr Documented By: JULY Vital Signs Vital signs: Vital Signs - 8 hr 04/18/23 12:22 04/18/23 13:24 04/18/23 13:26 Temperature 97.9 F Pulse Rate 104 H 81 87 Respiratory Rate 18 20 16 Blood Pressure 115/67 110/61 Pulse Oximetry 98 96 96 Oxygen Delivery Method Room Air Room Air Room Air 04/18/23 13:30 04/18/23 14:00 04/18/23 14:00 Temperature Pulse Rate 83 80 Respiratory Rate 18 23 Blood Pressure 110/62 Pulse Oximetry 96 97 Oxygen Delivery Method 04/18/23 14:30 04/18/23 15:00 04/18/23 15:30 Temperature Pulse Rate 77 80 74 Respiratory Rate 25 H Blood Pressure Pulse Oximetry 98 98 97 Oxygen Delivery Method 04/18/23 16:03 Temperature Pulse Rate 96 H Respiratory Rate 18 Blood Pressure 124/67 Pulse Oximetry 97 Oxygen Delivery Method Room Air Medical Decision Making Lab Data Lab results reviewed: Yes I reviewed the patient's lab results. 04/18/23 12:59 04/18/23 12:59 Labs: Lab Results 04/18/23 Range/Units 12:59 WBC 6.3 (4.5-11.0) X10^3/uL RBC 4.36 L (4.5-5.9) X10^6/uL Hgb 12.4 L (13.5-17.5) g/dL Hct 37.2 L (41-53) % MCV 85.2 (80-100) fL MCH 28.4 (26-34) PG MCHC 33.3 (30-36) % RDW 18.3 H (11.6-14.8) % Plt Count 398 (150-400) X10^3/uL Neut % (Auto) 55.5 (50-75) % Lymph % (Auto) 35.7 (25-40) % [place] % (Auto) 6.5 (3-14) % Eos % (Auto) 2.1 (2-4) % Baso % (Auto) 0.2 (0-2) % Neut # (Auto) 3500 (0478-6295) /uL Lymph # (Auto) 2200 (3651-3418) /uL [place] # (Auto) 400 (0-900) /uL Eos # (Auto) 100 (0-450) /uL Baso # (Auto) 0 (0-100) /uL PT 16.3 H (10.1-12.7) SECONDS INR 1.4 H (0.9-1.3) APTT 33 (26-36) SECONDS D-Dimer 28429 H (<500) ng/ml Sodium 139 (137-145) mmol/L Potassium 3.5 (3.4-5.1) mmol/L Chloride 109 H (98-107) mmol/L Carbon Dioxide 19 L (22-32) mmol/L BUN 16 (9-20) mg/dL Creatinine 1.35 H (0.66-1.25) mg/dL Estimated GFR 52 L (>60) mL/min BUN/Creatinine Ratio 11.9 (6-22) Glucose 91 (80-110) mg/dL Calcium 6.3 L* (8.4-10.2) mg/dL Magnesium 0.3 L* (1.6-2.3) mg/dL Total Bilirubin 0.4 (0.2-1.3) mg/dL AST 27 (17-59) IU/L ALT 20 (<50) IU/L Alkaline Phosphatase 42 (38-126) U/L Total Creatine Kinase 139 (55-170) U/L Troponin I < 0.012 (0.01-0.034) ng/mL Total Protein 6.8 (6.3-8.2) g/dL Albumin 3.8 (3.5-5.0) g/dL Globulin 3.0 (1.7-4.1) g/dL Albumin/Globulin Ratio 1.3 (1.0-2.8) Lipase 510 H (23-300) U/L Imaging Data Chest x-ray: Radiologist's Impression: PROCEDURE: XR CHEST 1V INDICATIONS: chest pain TECHNIQUE: One view of the chest was acquired. COMPARISON: [facility], XR CHEST 1V, 10/31/2018, 20:20. [facility], CHEST 1 VIEW, 02/22/2017, 13:30. FINDINGS: Surgical changes and devices: None. Lungs and pleura: Lungs are clear considering reduced inspiratory volume. No pleural effusions or pneumothorax. Mediastinum: Mediastinal contours appear normal. Heart size is normal. Bones and chest wall: No suspicious bony lesions. Overlying soft tissues appear unremarkable. IMPRESSION: Reduced inspiratory volume, no definite acute abnormality is seen when this is taken into account. CT scan - chest: Radiologist's Impression: PROCEDURE: CT ANGIO CHEST PE PROTOCOL INDICATIONS: Chest pain, shortness of breath, tachycardia TECHNIQUE: After the administration of intravenous contrast, 2 mm thick sections acquired from the pulmonary apices to the posterior costophrenic angles. MIP reformats of the arterial vasculature were utilized. For radiation dose reduction, the following was used: automated exposure control, adjustment of mA and/or kV according to patient size. COMPARISON: None. FINDINGS: Image quality: Diagnostic. Pulmonary arteries: Pulmonary arteries are normal in size, and demonstrate no intraluminal filling defects to suggest central pulmonary embolism. Lungs and pleura: Lungs are clear. No pleural effusions or pneumothorax. Central and peripheral airways are patent. Central bronchial wall thickening. Biapical mild pulmonary emphysematous change. Mediastinum: Heart size is normal, without pericardial effusion. No mediastinal or hilar adenopathy. Thoracic aorta is normal in caliber and enhancement. Esophagus is normal in caliber, without hiatal hernia. Bones and chest wall: No suspicious bony lesions. Ribs and thoracic spine appear intact throughout. No axillary or supraclavicular adenopathy. No thyroid nodules which require sonographic follow up, per consensus guidelines. Abdomen: Visualized upper abdominal solid organs appear normal in the early arterial phase of enhancement. IMPRESSION: No evidence of pulmonary embolism, aortic dissection or aneurysm. Mild pulmonary emphysema and diffuse smooth bronchial wall thickening probably reflects bronchiolitis ECG Data Attestation: I personally reviewed and interpreted this ECG as follows: Interpretation: Sinus rhythm Ventricular rate 88 First-degree AV block NH interval 214 milliseconds Normal axis No ST T wave changes MDM Narrative Medical decision making narrative: Patient arrived with vertigo symptoms and shortness of breath. The dizziness/vertigo actually improved without any specific intervention here in the emergency department other than replacement of magnesium and calcium. He ambulated around the emergency department it was not short of breath and not dizzy. CT scan of the chest showed no signs of pulmonary embolism. He has had issues with low magnesium and low calcium in the past and potentially some parathyroid hormone issues. 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 Patient states he is feeling much better and would like to be discharged home. I do not have a specific reason to admit him to the hospital as he is tolerating oral intake and can be on calcium and magnesium supplements. He was given return precautions. He expressed understanding and agreement. Discharge Plan Departure Patient Disposition: Home Clinical Impression: Low magnesium level, Low serum calcium, Dizziness Activity Restrictions/Additional Instructions: Recommend that you continue to take all of your medications as directed. Keep all of your scheduled medical appointments. Recommend that you start on a calcium supplement. You can purchase Tums intake them like we discussed. Also recommend that you take a vitamin-D supplement with this. You can also take magnesium supplement. All of these can be purchased [id number]. Return to the emergency department for new or worsening symptoms. Prescriptions: No Action lisinopril 20 mg tablet 20 mg PO DAILY Qty: 90 3RF simvastatin [Zocor] 40 mg tablet 40 mg PO HS Qty: 90 3RF Rx Instructions: This script replaced the 14 day supply. Thank you! rabeprazole [AcipHex] 20 mg tablet,delayed release (DR/EC) 20 mg PO DAILY Qty: 90 3RF levothyroxine 100 mcg tablet 100 mcg PO DAILY Qty: 90 3RF levofloxacin 500 mg tablet 500 mg PO DAILY Qty: 3 0RF Rx Instructions: Take one day before, day of, and day following procedure. allopurinol 100 mg tablet 100 mg PO DAILY prednisone 10 mg tablet See Rx Instructions .ROUTE .COMPLEX Qty: 147 0RF Rx Instructions: 60 mg (6 pills) daily for 1 week, then taper by subtracting 1 pill per week over 6 weeks until pills run out (ex. 5 pills x1 wk, 4 pills x1 week, 3 pills x1 wk, etc.) colchicine 0.6 mg tablet 0.6 mg PO BID Referrals: Rito Arrieta MD [Primary Care Provider] - Stand Alone Forms: Patient Portal/API
[2023-04-18 13:06] LABS: Add Manual Diff / Slide Review NO; Basophils Absolute Auto 0 /uL (0-100); Basophils Percent Auto 0.2 % (0-2); Eosinophils Absolute Auto 100 /uL (0-450); Eosinophils Percent Auto 2.1 % (2-4); Hematocrit 37.2 % (41-53); Hemoglobin 12.4 g/dL (13.5-17.5); Lymphocytes Absolute Auto 2200 /uL (1100-4500); Lymphocytes Percent Auto 35.7 % (25-40); Mean Corpuscular HGB Conc 33.3 % (30-36); Mean Corpuscular Hemoglobin 28.4 PG (26-34); Mean Corpuscular Volume 85.2 fL (80-100); Monocytes Absolute Auto 400 /uL (0-900); Monocytes Percent Auto 6.5 % (3-14); Neutrophils Absolute Auto 3500 /uL (1500-7000); Neutrophils Percent Auto 55.5 % (50-75); Platelet Count 398 X10^3/uL (150-400); Red Blood Cell Count 4.36 X10^6/uL (4.5-5.9); Red Cell Distribution Width 18.3 % (11.6-14.8); White Blood Cell Count 6.3 X10^3/uL (4.5-11.0)
[2023-04-18 13:14] LABS: INR 1.4 (0.9-1.3); Prothrombin Time 16.3 SECONDS (10.1-12.7)
[2023-04-18 13:16] LABS: PTT Partial Thromboplastin Tim 33 SECONDS (26-36)
[2023-04-18 13:24] LABS: Alanine Aminotransferase 20 IU/L (<50); Albumin 3.8 g/dL (3.5-5.0); Albumin Globulin Ratio 1.3 (1.0-2.8); Alkaline Phosphatase 42 U/L (38-126); Aspartate Aminotransferase 27 IU/L (17-59); BUN Creatinine Ratio 11.9 (6-22); Bilirubin Total 0.4 mg/dL (0.2-1.3); Blood Urea Nitrogen 16 mg/dL (9-20); Carbon Dioxide 19 mmol/L (22-32); Chloride 109 mmol/L (98-107); Creatine Kinase 139 U/L (55-170); Estimated Glomerular Filt Rate 52 mL/min (>60); Glucose 91 mg/dL (80-110); HEMOLYSIS < 15 (0-50); Lipase 510 U/L (23-300); Potassium 3.5 mmol/L (3.4-5.1); Sodium 139 mmol/L (137-145); Total Protein 6.8 g/dL (6.3-8.2)
[2023-04-18 13:26] LABS: Calcium 6.3 mg/dL (8.4-10.2); Magnesium 0.3 mg/dL (1.6-2.3)
[2023-04-18 13:29] LABS: D Dimer 15113 ng/ml (<500)
[2023-04-18 13:34] LABS: Troponin I < 0.012 ng/mL (0.01-0.034)
[2023-04-18] MEDS: MAGNESIUM SULFATE 2 GM/50 ML PIGGYBACK IV (13:42)
--- NOTE | 2023-04-18 14:06 | DI.CT.S_ITS ---
PROCEDURE: CT ANGIO CHEST PE PROTOCOL INDICATIONS: Chest pain, shortness of breath, tachycardia TECHNIQUE: After the administration of intravenous contrast, 2 mm thick sections acquired from the pulmonary apices to the posterior costophrenic angles. MIP reformats of the arterial vasculature were utilized. For radiation dose reduction, the following was used: automated exposure control, adjustment of mA and/or kV according to patient size. COMPARISON: None. FINDINGS: Image quality: Diagnostic. Pulmonary arteries: Pulmonary arteries are normal in size, and demonstrate no intraluminal filling defects to suggest central pulmonary embolism. Lungs and pleura: Lungs are clear. No pleural effusions or pneumothorax. Central and peripheral airways are patent. Central bronchial wall thickening. Biapical mild pulmonary emphysematous change. Mediastinum: Heart size is normal, without pericardial effusion. No mediastinal or hilar adenopathy. Thoracic aorta is normal in caliber and enhancement. Esophagus is normal in caliber, without hiatal hernia. Bones and chest wall: No suspicious bony lesions. Ribs and thoracic spine appear intact throughout. No axillary or supraclavicular adenopathy. No thyroid nodules which require sonographic follow up, per consensus guidelines. Abdomen: Visualized upper abdominal solid organs appear normal in the early arterial phase of enhancement. IMPRESSION: No evidence of pulmonary embolism, aortic dissection or aneurysm. Mild pulmonary emphysema and diffuse smooth bronchial wall thickening probably reflects bronchiolitis Approved by: Uriah Martin M.D. on 04/18/2023 at 14:17
[2023-04-18] MEDS: CALCIUM GLUCONATE 9.3 MEQ in SODIUM CHLORIDE 0.9% 50 ML 140 MEQ IV (15:20)
--- NOTE | 2023-04-18 16:05 | PC.NURSE ---
ambulated without difficulty. denies dizziness.
== END 2023-04-18 16:20 | disposition home or self-care (01) ==
PROVIDERS: Emergency Provider Emergency Medicine; PCP Internal Medicine
DX: R42 Dizziness and giddiness (principal); R79.89 Other specified abnormal findings of blood chemistry; R79.0 Abnormal level of blood mineral; R07.9 Chest pain, unspecified; R06.02 Shortness of breath
CPT/HCPCS: 36415; 71045; 71275; 80053; 82550; 83690; 83735; 84484; 85025; 85379; 85610; 85730; 93005; 93010; 96365; 99284; 99285; J0612; J3475; Q9967

== ENCOUNTER → 2023-04-22 11:15 | Outpatient (CLI) | payer MEDICARE, OTHER, SELFPAY ==
[2023-02-20 22:15] VITALS: BMI 26.9
[2023-04-22 13:42] LABS: Blood Urea Nitrogen 14 mg/dL (9-20); Calcium 7.9 mg/dL (8.4-10.2); Carbon Dioxide 25 mmol/L (22-32); Chloride 106 mmol/L (98-107); Estimated Glomerular Filt Rate 56 mL/min (>60); Glucose 64 mg/dL (80-110); HEMOLYSIS < 15 (0-50); Potassium 4.4 mmol/L (3.4-5.1); Sodium 141 mmol/L (137-145)
[2023-04-22 14:20] LABS: Magnesium 0.5 mg/dL (1.6-2.3)
[2023-04-23 11:59] LABS: Ionized Calcium 3.9 mg/dL (4.5-5.6)
[2023-04-24 08:54] LABS: Parathyroid Hormone, Intact 31 pg/mL (15-65)
[2023-05-01 17:18] LABS: 1,25-Dihydroxy, Vitamin D-2 <10 pg/mL (.)
== END ==
PROVIDERS: Internal Medicine; PCP Internal Medicine; Referring Provider Internal Medicine; Visit Provider Internal Medicine
DX: R79.0 Abnormal level of blood mineral (principal); E55.9 Vitamin D deficiency, unspecified; R79.89 Other specified abnormal findings of blood chemistry; E20.9 Hypoparathyroidism, unspecified
CPT/HCPCS: 36415; 80048; 82310; 82330; 82652; 83735; 83970

== ENCOUNTER → 2023-05-01 10:50 | Outpatient (CLI) | payer MEDICARE, OTHER, SELFPAY ==
[2023-02-20 22:15] VITALS: BMI 26.9
[2023-05-01 11:44] LABS: BUN Creatinine Ratio 9.9 (6-22); Blood Urea Nitrogen 14 mg/dL (9-20); Calcium 9.1 mg/dL (8.4-10.2); Carbon Dioxide 27 mmol/L (22-32); Chloride 105 mmol/L (98-107); Estimated Glomerular Filt Rate 50 mL/min (>60); Glucose 96 mg/dL (80-110); Magnesium 0.8 mg/dL (1.6-2.3); Potassium 3.7 mmol/L (3.4-5.1); Sodium 139 mmol/L (137-145)
[2023-05-01 11:51] LABS: HEMOLYSIS 22 (0-50)
== END ==
PROVIDERS: PCP Internal Medicine; Referring Provider Internal Medicine; Visit Provider Internal Medicine
DX: R79.0 Abnormal level of blood mineral (principal); R79.89 Other specified abnormal findings of blood chemistry
CPT/HCPCS: 36415; 80048; 83735

== ENCOUNTER → 2023-05-15 14:50 | Outpatient (CLI) | payer MEDICARE, OTHER, SELFPAY ==
[2023-02-20 22:15] VITALS: BMI 26.9
[2023-05-15 18:41] LABS: BUN Creatinine Ratio 14.5 (6-22); Blood Urea Nitrogen 24 mg/dL (9-20); Calcium 10.7 mg/dL (8.4-10.2); Carbon Dioxide 24 mmol/L (22-32); Chloride 103 mmol/L (98-107); Estimated Glomerular Filt Rate 41 mL/min (>60); Glucose 109 mg/dL (80-110); HEMOLYSIS < 15 (0-50); Magnesium 1.3 mg/dL (1.6-2.3); Potassium 4.4 mmol/L (3.4-5.1); Sodium 137 mmol/L (137-145)
== END ==
PROVIDERS: PCP Internal Medicine; Referring Provider Internal Medicine; Visit Provider Internal Medicine
DX: E83.42 Hypomagnesemia (principal); I10 Essential (primary) hypertension; M10.9 Gout, unspecified
CPT/HCPCS: 36415; 80048; 83735; 84550

== ENCOUNTER → 2023-06-19 08:46 | Outpatient (CLI) | payer MEDICARE, OTHER, SELFPAY ==
[2023-02-20 22:15] VITALS: BMI 26.9
[2023-06-19 10:47] LABS: BUN Creatinine Ratio 17.1 (6-22); Blood Urea Nitrogen 29 mg/dL (9-20); Calcium 10.5 mg/dL (8.4-10.2); Carbon Dioxide 26 mmol/L (22-32); Chloride 101 mmol/L (98-107); Estimated Glomerular Filt Rate 40 mL/min (>60); Glucose 91 mg/dL (80-110); HEMOLYSIS < 15 (0-50); Magnesium 1.7 mg/dL (1.6-2.3); Potassium 4.5 mmol/L (3.4-5.1); Sodium 137 mmol/L (137-145)
== END ==
LOC: LAB 08:47
PROVIDERS: PCP Internal Medicine; Referring Provider Internal Medicine; Visit Provider Internal Medicine
DX: E83.42 Hypomagnesemia (principal); I10 Essential (primary) hypertension
CPT/HCPCS: 36415; 80048; 83735

== ENCOUNTER → 2023-08-19 08:25 | Outpatient (CLI) | payer MEDICARE, OTHER, SELFPAY ==
[2023-02-20 22:15] VITALS: BMI 26.9
[2023-08-19 09:42] LABS: BUN Creatinine Ratio 16.8 (6-22); Blood Urea Nitrogen 31 mg/dL (9-20); Calcium 10.3 mg/dL (8.4-10.2); Carbon Dioxide 28 mmol/L (22-32); Chloride 105 mmol/L (98-107); Cholesterol 139 mg/dL (140-199); Estimated Glomerular Filt Rate 36 mL/min (>60); Glucose 105 mg/dL (80-110); HDL Cholesterol 31 mg/dL (40-60); HEMOLYSIS < 15 (0-50); LDL Cholesterol Calculated 73 mg/dL (<100); Magnesium 1.8 mg/dL (1.6-2.3); Potassium 4.5 mmol/L (3.4-5.1); Sodium 139 mmol/L (137-145); Triglycerides 176 mg/dL (35-150)
[2023-08-19 10:15] LABS: TSH w/ Reflex to FT4 0.19 uIU/mL (0.47-4.68)
[2023-08-21 14:43] LABS: PSA Free % 14.1 % (.)
== END ==
LOC: LAB 08:26
PROVIDERS: Urology; PCP Internal Medicine; Referring Provider Internal Medicine; Visit Provider Internal Medicine
DX: E83.42 Hypomagnesemia (principal); E03.9 Hypothyroidism, unspecified; N18.32 Chronic kidney disease, stage 3b; E78.2 Mixed hyperlipidemia; R97.20 Elevated prostate specific antigen [PSA]
CPT/HCPCS: 36415; 80048; 80061; 83735; 84153; 84154; 84439; 84443

== ENCOUNTER → 2023-11-18 07:59 | Outpatient (CLI) | payer MEDICARE, OTHER, SELFPAY ==
[2023-02-20 22:15] VITALS: BMI 26.9
== END ==
LOC: LAB 08:00
PROVIDERS: PCP Internal Medicine; Referring Provider Urology; Visit Provider Urology
DX: R97.20 Elevated prostate specific antigen [PSA] (principal)
CPT/HCPCS: 36415; 84153; 84154

== ENCOUNTER → 2024-01-13 07:15 | Outpatient (CLI) | payer MEDICARE, OTHER, SELFPAY ==
[2023-02-20 22:15] VITALS: BMI 26.9
[2024-01-13 09:14] LABS: Hemoglobin 14.7 g/dL (13.5-17.5); Mean Corpuscular HGB Conc 32.7 % (30-36); Mean Corpuscular Hemoglobin 29.1 PG (26-34); Mean Corpuscular Volume 89.2 fL (80-100); Platelet Count 276 X10^3/uL (150-400); Red Blood Cell Count 5.04 X10^6/uL (4.5-5.9); Red Cell Distribution Width 15.6 % (11.6-14.8); White Blood Cell Count 5.8 X10^3/uL (4.5-11.0)
[2024-01-13 09:48] LABS: Aspartate Aminotransferase 38 IU/L (17-59); BUN Creatinine Ratio 14.5 (6-22); Blood Urea Nitrogen 30 mg/dL (9-20); Calcium 10.6 mg/dL (8.4-10.2); Carbon Dioxide 25 mmol/L (22-32); Chloride 105 mmol/L (98-107); Cholesterol 164 mg/dL (140-199); Estimated Glomerular Filt Rate 31 mL/min (>60); Glucose 94 mg/dL (80-110); HDL Cholesterol 50 mg/dL (40-60); HEMOLYSIS < 15 (0-50); LDL Cholesterol Calculated 86 mg/dL (<100); Magnesium 1.5 mg/dL (1.6-2.3); Potassium 4.8 mmol/L (3.4-5.1); Sodium 139 mmol/L (137-145); Triglycerides 140 mg/dL (35-150); Uric Acid 5.5 mg/dL (3.5-8.5)
[2024-01-13 11:22] LABS: Free T4, Direct Thyroxine 0.35 ng/dL (0.78-2.19)
== END ==
PROVIDERS: PCP Internal Medicine; Referring Provider Internal Medicine; Visit Provider Internal Medicine
DX: E03.9 Hypothyroidism, unspecified (principal); N18.32 Chronic kidney disease, stage 3b; E78.2 Mixed hyperlipidemia; E83.42 Hypomagnesemia; M10.9 Gout, unspecified
CPT/HCPCS: 36415; 80048; 80061; 83735; 84439; 84443; 84450; 84550; 85027

== ENCOUNTER → 2024-02-05 13:54 | Outpatient (CLI) | payer MEDICARE, OTHER, SELFPAY ==
[2023-02-20 22:15] VITALS: BMI 26.9
[2024-02-05 20:11] LABS: Free T4, Direct Thyroxine 0.68 ng/dL (0.78-2.19)
== END ==
PROVIDERS: PCP Internal Medicine; Referring Provider Internal Medicine; Visit Provider Internal Medicine
DX: E03.9 Hypothyroidism, unspecified (principal)
CPT/HCPCS: 36415; 84439; 84443

== ENCOUNTER → 2024-04-02 07:31 | Outpatient (CLI) | payer MEDICARE, OTHER, SELFPAY ==
[2023-02-20 22:15] VITALS: BMI 26.9
[2024-04-02 09:06] LABS: TSH w/ Reflex to FT4 0.06 uIU/mL (0.47-4.68)
[2024-04-02 10:54] LABS: Free T4, Direct Thyroxine 1.91 ng/dL (0.78-2.19)
== END ==
PROVIDERS: PCP Internal Medicine; Referring Provider Internal Medicine; Visit Provider Internal Medicine
DX: E03.9 Hypothyroidism, unspecified (principal); E78.2 Mixed hyperlipidemia; E83.42 Hypomagnesemia; I12.9 Hypertensive chronic kidney disease with stage 1 through stage 4 chronic kidney disease, or unspecified chronic kidney disease; N18.32 Chronic kidney disease, stage 3b; M1A.9XX0 Chronic gout, unspecified, without tophus (tophi); N40.1 Benign prostatic hyperplasia with lower urinary tract symptoms; N13.8 Other obstructive and reflux uropathy; N52.9 Male erectile dysfunction, unspecified; E66.3 Overweight
CPT/HCPCS: 36415; 84439; 84443

== ENCOUNTER → 2024-05-12 07:26 | Outpatient (CLI) | payer MEDICARE, OTHER, SELFPAY ==
[2023-02-20 22:15] VITALS: BMI 26.9
[2024-05-13 11:36] LABS: PSA Free % 14.3 % (.); PSA, Total 10.4 ng/mL (0.0-4.0)
== END ==
PROVIDERS: PCP Internal Medicine; Referring Provider Urology; Visit Provider Urology
DX: R97.20 Elevated prostate specific antigen [PSA] (principal)
CPT/HCPCS: 36415; 84153; 84154

== ENCOUNTER → 2024-07-06 10:09 | Outpatient (CLI) | payer MEDICARE, OTHER, SELFPAY ==
[2023-02-20 22:15] VITALS: BMI 26.9
--- NOTE | 2024-07-06 10:11 | DI.RAD.S_ITS ---
PROCEDURE: XR CHEST 2V INDICATIONS: fall right chest pain short of breath TECHNIQUE: 2 views of the chest were acquired. COMPARISON: [facility], , XR CHEST 1V, 04/18/2023, 13:00. FINDINGS: Heart, mediastinum and pulmonary vascular: Heart is normal in size and configuration. Mediastinum is unremarkable. Pulmonary vascular is normal. Lungs: Clear Pleural spaces: Normal-no effusions or pneumothorax. Bones and soft tissues: Normal . no acute fractures. Old non unified fracture of the tip of the right acromion IMPRESSION: Normal chest. Dictated by: Wilder Hernadez M.D. on 07/07/2024 at 11:33 Approved by: Wilder Hernadez M.D. on 07/07/2024 at 11:34
[2024-07-06 11:00] LABS: Hematocrit 44.7 % (41-53); Hemoglobin 14.7 g/dL (13.5-17.5); Mean Corpuscular HGB Conc 32.9 % (30-36); Mean Corpuscular Hemoglobin 29.4 PG (26-34); Mean Corpuscular Volume 89.3 fL (80-100); Platelet Count 300 X10^3/uL (150-400); Red Cell Distribution Width 15.3 % (11.6-14.8); White Blood Cell Count 5.9 X10^3/uL (4.5-11.0)
[2024-07-06 11:19] LABS: Alanine Aminotransferase 27 IU/L (<50); Albumin 4.9 g/dL (3.5-5.0); Alkaline Phosphatase 61 U/L (38-126); Aspartate Aminotransferase 30 IU/L (17-59); BUN Creatinine Ratio 15.5 (6-22); Bilirubin Total 0.6 mg/dL (0.2-1.3); Blood Urea Nitrogen 34 mg/dL (9-20); Calcium 10.3 mg/dL (8.4-10.2); Carbon Dioxide 25 mmol/L (22-32); Chloride 103 mmol/L (98-107); Estimated Glomerular Filt Rate 29 mL/min (>60); Globulin 2.5 g/dL (1.7-4.1); Glucose 99 mg/dL (80-110); HEMOLYSIS < 15 (0-50); Magnesium 1.1 mg/dL (1.6-2.3); Potassium 4.3 mmol/L (3.4-5.1); Sodium 140 mmol/L (137-145); Total Protein 7.4 g/dL (6.3-8.2)
[2024-07-06 11:49] LABS: TSH w/ Reflex to FT4 0.59 uIU/mL (0.47-4.68)
== END ==
PROVIDERS: PCP Internal Medicine; Referring Provider Internal Medicine; Visit Provider Internal Medicine
DX: R07.9 Chest pain, unspecified (principal); E83.42 Hypomagnesemia; E03.9 Hypothyroidism, unspecified; N18.32 Chronic kidney disease, stage 3b
CPT/HCPCS: 36415; 71046; 80053; 83735; 84443; 85027

== ENCOUNTER → 2024-07-14 09:52 | Outpatient (CLI) | payer MEDICARE, OTHER, SELFPAY ==
[2023-02-20 22:15] VITALS: BMI 26.9
[2024-07-14 10:49] LABS: BUN Creatinine Ratio 19.5 (6-22); Blood Urea Nitrogen 36 mg/dL (9-20); Calcium 10.2 mg/dL (8.4-10.2); Carbon Dioxide 24 mmol/L (22-32); Chloride 105 mmol/L (98-107); Estimated Glomerular Filt Rate 36 mL/min (>60); Glucose 126 mg/dL (80-110); HEMOLYSIS < 15 (0-50); Magnesium 1.3 mg/dL (1.6-2.3); Potassium 4.2 mmol/L (3.4-5.1); Sodium 138 mmol/L (137-145)
[2024-07-15 07:07] LABS: PSA Free % 18.2 % (.); PSA, Total 11.4 ng/mL (0.0-4.0)
== END ==
PROVIDERS: Urology; PCP Internal Medicine; Referring Provider Internal Medicine; Visit Provider Internal Medicine
DX: I12.9 Hypertensive chronic kidney disease with stage 1 through stage 4 chronic kidney disease, or unspecified chronic kidney disease (principal); N18.32 Chronic kidney disease, stage 3b; E83.42 Hypomagnesemia; N42.31 Prostatic intraepithelial neoplasia; N32.0 Bladder-neck obstruction; N40.1 Benign prostatic hyperplasia with lower urinary tract symptoms; N13.8 Other obstructive and reflux uropathy; R97.20 Elevated prostate specific antigen [PSA]
CPT/HCPCS: 36415; 80048; 83735; 84153; 84154

== ENCOUNTER → 2024-09-02 14:11 | Outpatient (CLI) | payer MEDICARE, OTHER, SELFPAY ==
[2023-02-20 22:15] VITALS: BMI 26.9
[2024-09-02 16:20] LABS: BUN Creatinine Ratio 18.7 (6-22); Blood Urea Nitrogen 35 mg/dL (9-20); Calcium 10.3 mg/dL (8.4-10.2); Carbon Dioxide 20 mmol/L (22-32); Chloride 106 mmol/L (98-107); Estimated Glomerular Filt Rate 35 mL/min (>60); Glucose 118 mg/dL (80-110); HEMOLYSIS < 15 (0-50); Magnesium 1.7 mg/dL (1.6-2.3); Potassium 4.4 mmol/L (3.4-5.1); Sodium 140 mmol/L (137-145)
== END ==
PROVIDERS: PCP Internal Medicine; Referring Provider Internal Medicine; Visit Provider Internal Medicine
DX: E83.42 Hypomagnesemia (principal); N18.32 Chronic kidney disease, stage 3b
CPT/HCPCS: 36415; 80048; 83735

== ENCOUNTER → 2024-10-04 16:57 | Outpatient (CLI) | payer MEDICARE, OTHER, SELFPAY ==
[2023-02-20 22:15] VITALS: BMI 26.9
--- NOTE | 2024-10-04 17:02 | DI.RAD.S_ITS ---
PROCEDURE: XR LUMBAR SPINE 2-3V INDICATIONS: left sciatica TECHNIQUE: 3 views of the lumbar spine were acquired. COMPARISON: None. FINDINGS: Bones: 5 [id number] vertebrae are present. There is normal bony alignment. No vertebral body compression fractures. No suspicious bony lesions. Spine degenerative disc disease and facet arthropathy. Soft tissues: Overlying bowel gas pattern is normal. No suspicious soft tissue calcifications. Cholecystectomy clips IMPRESSION: Multilevel degenerative disc disease. Multilevel facet arthropathy. No fracture. No acute osseous lesion. If symptoms and/or clinical suspicion for pathology persists, evaluation with MRI should be considered for further assessment. Dictated by: Carolina Franco MD, PhD on 10/05/2024 at 12:40 Approved by: Carolina Franco MD, PhD on 10/05/2024 at 12:40
== END ==
PROVIDERS: PCP Internal Medicine; Referring Provider Internal Medicine; Visit Provider Internal Medicine
DX: M51.16 Intervertebral disc disorders with radiculopathy, lumbar region (principal); M47.26 Other spondylosis with radiculopathy, lumbar region
CPT/HCPCS: 72100

== ENCOUNTER → 2024-10-07 11:36 | Outpatient (CLI) | payer MEDICARE, OTHER, SELFPAY ==
[2023-02-20 22:15] VITALS: BMI 26.9
--- NOTE | 2024-10-07 11:38 | DI.MRI.S_ITS ---
PROCEDURE: MR LUMBAR SPINE WO CON INDICATIONS: left sciatica TECHNIQUE: Noncontrast sagittal T1 spin echo and T2 fast echo, sagittal STIR, and T2 fast spin echo through the lumbar spine. In cases with scoliosis, additional coronal T2 fast spin echo may be performed. COMPARISON: [facility], MR, MR LUMBAR SPINE WO CON, 02/20/2023, 18:01. FINDINGS: Image quality: Excellent. Alignment and Curvature: There is normal bony alignment. Bone Marrow: Marrow is of normal overall signal. No acute vertebral body compression fractures. Spinal Cord: Conus medullaris terminates at the L1 level. Visualized cord demonstrates normal signal and size. Paraspinous Soft Tissues: No paravertebral masses. T12-L1: Normal appearance. L1-L2: There is disc desiccation. Mild diffuse disc bulge and bilateral facet arthrosis with hypertrophy of ligamentum flavum. No significant central canal stenosis or neural foraminal narrowing. L2-L3: There is disc desiccation. Mild broad-based disc bulge and bilateral facet arthrosis with hypertrophy of ligamentum flavum causing [id number] central canal stenosis and bilateral neural foraminal narrowing. Bulging disc likely contacting bilateral L2 nerve roots. L3-L4: There is disc desiccation. Broad-based disc bulge and bilateral facet arthrosis with hypertrophy of ligamentum flavum causing [id number] central canal stenosis, moderate to severe left-sided neural foraminal narrowing and [id number] right-sided neural foraminal narrowing. Bulging disc likely contacting left L3 nerve root. L4-L5: Disc desiccation is seen. There is broad-based disc bulge and bilateral facet arthrosis with hypertrophy of ligamentum flavum causing moderate central canal stenosis and severe right worse than left bilateral neural foraminal narrowing. Bulging disc likely contacting bilateral L4 nerve roots. L5-S1: Loss of disc height and disc desiccation. Broad-based, more right-sided disc herniation with bilateral facet arthrosis causing mild central canal stenosis, severe right-sided neural foraminal narrowing and mild left-sided neural foraminal narrowing. There is likely compression of right L5 nerve root. IMPRESSION: 1. No marrow edema. No acute compression fracture or spondylolisthesis. 2. Interval worsening of spondylitic changes throughout lumbar spine causing various degrees of central canal stenosis and bilateral neural foraminal narrowing more notably at L4-5 and L5-S1 levels as described above. 3. No gross paraspinous soft tissue abnormalities. Dictated by: Jm Stover M.D. on 10/07/2024 at 14:49 Approved by: Jm Stover M.D. on 10/07/2024 at 15:25
== END ==
PROVIDERS: PCP Internal Medicine; Referring Provider Internal Medicine; Visit Provider Internal Medicine
DX: M47.816 Spondylosis without myelopathy or radiculopathy, lumbar region (principal); M47.817 Spondylosis without myelopathy or radiculopathy, lumbosacral region; M48.061 Spinal stenosis, lumbar region without neurogenic claudication; M48.07 Spinal stenosis, lumbosacral region; M54.30 Sciatica, unspecified side
CPT/HCPCS: 72148

== ENCOUNTER → 2024-11-10 13:12 | Outpatient (CLI) | payer MEDICARE, OTHER, SELFPAY ==
[2023-02-20 22:15] VITALS: BMI 26.9
[2024-11-12 07:09] LABS: PSA Free % 15.9 % (.); PSA, Total 8.7 ng/mL (0.0-4.0)
== END ==
PROVIDERS: PCP Internal Medicine; Referring Provider Urology; Visit Provider Urology
DX: R97.20 Elevated prostate specific antigen [PSA] (principal)
CPT/HCPCS: 36415; 84153; 84154

== ENCOUNTER → 2025-01-11 07:35 | Outpatient (CLI) | payer MEDICARE, OTHER, SELFPAY ==
[2023-02-20 22:15] VITALS: BMI 26.9
[2025-01-11 08:49] LABS: Hematocrit 43.1 % (41-53); Hemoglobin 14.0 g/dL (13.5-17.5); Mean Corpuscular HGB Conc 32.6 % (30-36); Mean Corpuscular Hemoglobin 29.8 PG (26-34); Mean Corpuscular Volume 91.3 fL (80-100); Platelet Count 263 X10^3/uL (150-400)
[2025-01-11 10:03] LABS: TSH w/ Reflex to FT4 0.33 uIU/mL (0.47-4.68)
[2025-01-11 10:07] LABS: Blood Urea Nitrogen 28 mg/dL (9-20); Calcium 10.2 mg/dL (8.4-10.2); Carbon Dioxide 21 mmol/L (22-32); Chloride 103 mmol/L (98-107); Cholesterol 135 mg/dL (140-199); Estimated Glomerular Filt Rate 39 mL/min (>60); Glucose 96 mg/dL (70-99); HDL Cholesterol 34 mg/dL (40-60); HEMOLYSIS 34 (0-50); Magnesium 1.5 mg/dL (1.6-2.3); Potassium 4.6 mmol/L (3.4-5.1); Sodium 136 mmol/L (137-145); Triglycerides 137 mg/dL (35-150); Uric Acid 5.4 mg/dL (3.5-8.5)
[2025-01-11 15:24] LABS: Free T4, Direct Thyroxine 1.67 ng/dL (0.78-2.19)
[2025-01-13 07:09] LABS: Calcium 10.5 mg/dL (8.6-10.2); Parathyroid Hormone, Intact 8 pg/mL (15-65)
== END ==
PROVIDERS: PCP Internal Medicine; Referring Provider Internal Medicine; Visit Provider Internal Medicine
DX: E78.2 Mixed hyperlipidemia (principal); N18.32 Chronic kidney disease, stage 3b; E83.42 Hypomagnesemia; E03.9 Hypothyroidism, unspecified; M1A.9XX0 Chronic gout, unspecified, without tophus (tophi)
CPT/HCPCS: 36415; 80048; 80061; 82310; 83735; 83970; 84439; 84443; 84450; 84550; 85027

== ENCOUNTER → 2025-04-06 09:05 | Outpatient (CLI) | payer MEDICARE, OTHER, SELFPAY ==
[2023-02-20 22:15] VITALS: BMI 26.9
[2025-04-06 10:16] LABS: Blood Urea Nitrogen 34 mg/dL (9-20); Calcium 10.1 mg/dL (8.4-10.2); Carbon Dioxide 24 mmol/L (22-32); Chloride 101 mmol/L (98-107); Estimated Glomerular Filt Rate 31 mL/min (>60); Glucose 100 mg/dL (70-99); HEMOLYSIS < 15 (0-50); Magnesium 1.7 mg/dL (1.6-2.3); Potassium 4.3 mmol/L (3.4-5.1); Sodium 138 mmol/L (137-145)
[2025-04-06 10:38] LABS: TSH w/ Reflex to FT4 0.22 uIU/mL (0.47-4.68)
[2025-04-06 11:03] LABS: Free T4, Direct Thyroxine 1.67 ng/dL (0.78-2.19)
== END ==
PROVIDERS: PCP Internal Medicine; Referring Provider Internal Medicine; Visit Provider Internal Medicine
DX: E83.42 Hypomagnesemia (principal); E03.9 Hypothyroidism, unspecified; N18.32 Chronic kidney disease, stage 3b
CPT/HCPCS: 36415; 80048; 83735; 84439; 84443

== ENCOUNTER → 2025-05-23 07:45 | Outpatient (CLI) | payer MEDICARE, OTHER, SELFPAY ==
[2023-02-20 22:15] VITALS: BMI 26.9
[2025-05-24 07:36] LABS: PSA, Total 13.5 ng/mL (0.0-4.0)
== END ==
PROVIDERS: PCP Internal Medicine; Referring Provider Urology; Visit Provider Urology
DX: R97.20 Elevated prostate specific antigen [PSA] (principal)
CPT/HCPCS: 36415; 84153; 84154